=== PATIENT | female | born 1955 | race Caucasian/White ===

== ENCOUNTER 2018-01-08 18:45 | Emergency (ER) | payer BC, OTHER ==
[2018-01-08] MEDS: traMADol 50 MG TAB PO (20:13)
[2018-01-08 20:22] LABS: BASO % 0.2 % (0.0-1.0); EOS # 0.5 10^3/uL (0.0-0.50); EOS % 5.2 % (0.0-3.0); HEMATOCRIT 36.8 % (36.0-47.0); HEMOGLOBIN 12.2 g/dl (12.0-15.5); IMMATURE GRANULOCYTE % 0.4 % (0-3.0); LYMPH # 2.4 10^3/uL (1.5-4.5); LYMPH % 26.7 % (24.0-44.0); MEAN CORPUSCULAR HEMOGLOBIN 28.4 pg (27.0-33.0); MEAN CORPUSCULAR HGB CONC 33.2 g/dl (32.0-36.5); MEAN CORPUSCULAR VOLUME 85.8 fl (80.0-96.0); MONO # 0.6 10^3/uL (0.0-0.8); MONO % 6.5 % (0.0-5.0); NEUTROPHILS # 5.5 10^3/uL (1.8-7.7); PLATELET COUNT, AUTOMATED 204 10^3/uL (150-450); RED BLOOD COUNT 4.29 10^6/uL (4.00-5.40); RED CELL DISTRIBUTION WIDTH 12.9 % (11.5-14.5)
[2018-01-08 20:44] LABS: ESTIMATED AVERAGE GLUCOSE 349 MG/DL (60-110); HEMOGLOBIN A1c 13.8 %
[2018-01-08 20:48] LABS: ERYTHROCYTE SEDIMENTATION RATE 48 mm/hr (0-30)
[2018-01-08 20:50] LABS: KETONE, URINE AUTO RFX NEGATIVE (NEGATIVE); LEUKOCYTE ESTERASE UR AUTO RFX NEGATIVE (NEGATIVE); NITRITE, URINE AUTO RFX NEGATIVE (NEGATIVE); RBC, URINE AUTO RFX 2 /HPF (0-3); SPECIFIC GRAVITY UR AUTO RFX 1.023 (1.002-1.035); SQUAM EPITHELIAL CELL UR AURFX 0 /HPF (0-6); WBC, URINE AUTO RFX 5 /HPF (0-3)
[2018-01-08 21:00] LABS: ALBUMIN 3.5 GM/DL (3.2-5.2); ALKALINE PHOSPHATASE 77 U/L (45-117); ALT/SGPT 20 U/L (12-78); ANION GAP 5 MEQ/L (8-16); AST/SGOT 12 U/L (7-37); BILIRUBIN,DIRECT < 0.1 MG/DL (0.0-0.2); BILIRUBIN,TOTAL 0.4 MG/DL (0.2-1.0); BLOOD UREA NITROGEN 39 MG/DL (7-18); C REACTIVE PROTEIN QUANTITATIV 0.42 MG/DL (0.00-0.30); CARBON DIOXIDE LEVEL 31 MEQ/L (21-32); CHLORIDE LEVEL 101 MEQ/L (98-107); CREATININE FOR GFR 2.01 MG/DL (0.55-1.30); GLOMERULAR FILTRATION RATE 26.7 (>45); GLUCOSE, FASTING 388 MG/DL (70-100); LIPASE 347 U/L (73-393); MAGNESIUM LEVEL 2.3 MG/DL (1.8-2.4); SODIUM LEVEL 137 MEQ/L (136-145); TOTAL PROTEIN 6.2 GM/DL (6.4-8.2)
[2018-01-08] MEDS: LORazepam 1 MG TAB PO (21:10)
== END 2018-01-08 21:53 | disposition left against medical advice (07) ==
LOC: M ED 18:45
DX: M79.662 Pain in left lower leg (principal); E11.65 Type 2 diabetes mellitus with hyperglycemia; I10 Essential (primary) hypertension
CPT/HCPCS: 72148

== ENCOUNTER → 2018-08-06 | Outpatient (CLI) | payer OTHER ==
[~2018-08-06] MED LIST: ATENPOW PO; CIPR500T89 PO; CYMB1CAP PO; CYMB60CA3 PO; DEPA1TAB3 PO; DIAZ2TAB PO; FURO20TA2; GABA-845 PO; GLIM1TAB PO; HYDR-3910; LABE20TAB; METFORMIN PO; PRAV20TA2; SERT-138; TOUJ1.2I; TRAM50TA2 PO; TYLE325T5 PO; ZOLOFT PO
[2018-08-06 11:14] LABS: BASO % 0.3 % (0.0-1.0); EOS # 0.1 10^3/uL (0.0-0.50); EOS % 2.1 % (0.0-3.0); HEMATOCRIT 32.3 % (36.0-47.0); HEMOGLOBIN 10.6 g/dl (12.0-15.5); LYMPH # 2.1 10^3/uL (1.5-4.5); LYMPH % 31.7 % (24.0-44.0); MEAN CORPUSCULAR HEMOGLOBIN 30.7 pg (27.0-33.0); MEAN CORPUSCULAR HGB CONC 32.8 g/dl (32.0-36.5); MEAN CORPUSCULAR VOLUME 93.6 fl (80.0-96.0); MONO # 0.6 10^3/uL (0.0-0.8); MONO % 9.3 % (0.0-5.0); NEUTROPHILS # 3.7 10^3/uL (1.8-7.7); NEUTROPHILS % 56.3 % (36.0-66.0); PLATELET COUNT, AUTOMATED 223 10^3/uL (150-450); RED BLOOD COUNT 3.45 10^6/uL (4.00-5.40); WHITE BLOOD COUNT 6.5 10^3/uL (4.0-10.0)
[2018-08-06 11:47] LABS: HEMOGLOBIN A1c 7.3 %
[2018-08-06 11:51] LABS: ALBUMIN 3.6 GM/DL (3.2-5.2); BILIRUBIN,TOTAL 0.3 MG/DL (0.2-1.0); CALCIUM LEVEL 9.3 MG/DL (8.8-10.2); CREATININE FOR GFR 1.48 MG/DL (0.55-1.30); GLOMERULAR FILTRATION RATE 37.9 (>45); POTASSIUM SERUM 4.8 MEQ/L (3.5-5.1); THYROID STIMULATING HORMONE 1.67 uIU/ML (0.358-3.740); TOTAL PROTEIN 6.8 GM/DL (6.4-8.2)
[2018-08-06 11:52] LABS: PTH INTACT 51.5 PG/ML (18.5-88.0)
[2018-08-06 12:16] LABS: CREATININE, URINE 91.1 MG/DL
== END ==
LOC: M LAB 09:56
PROVIDERS: ATTEND Nurse Practitioner Adult Health
DX: E11.49 Type 2 diabetes mellitus with other diabetic neurological complication (principal); I48.91 Unspecified atrial fibrillation; I12.9 Hypertensive chronic kidney disease with stage 1 through stage 4 chronic kidney disease, or unspecified chronic kidney disease

== ENCOUNTER → 2018-09-28 | Outpatient (REF) | payer OTHER ==
[2018-09-28 13:33] LABS: ALBUMIN 3.4 GM/DL (3.2-5.2); BILIRUBIN,TOTAL 0.3 MG/DL (0.2-1.0); CALCIUM LEVEL 9.1 MG/DL (8.8-10.2); CREATININE FOR GFR 1.2 MG/DL (0.55-1.30); GLOMERULAR FILTRATION RATE 48.3 (>45); TOTAL PROTEIN 6.3 GM/DL (6.4-8.2)
[2018-09-28 13:38] LABS: CREATININE,RANDOM URINE 53.7 MG/DL; TOTAL PROTEIN,RANDOM URINE 82.7 MG/DL (0.0-12.0)
== END ==
LOC: M SFHCPLAZ 10:55
PROVIDERS: ATTEND Nurse Practitioner Adult Health
DX: E11.49 Type 2 diabetes mellitus with other diabetic neurological complication (principal)

== ENCOUNTER → 2018-10-22 | Outpatient (CLI) | payer OTHER ==
[~2018-10-22] MED LIST changes: +BASA100I; +DULO1CAP6; +GABA600T4; +TIZA4TAB4; +TORS20TA2
--- NOTE | 2018-10-22 10:44 | REP ---
Right lower extremity Duplex Doppler venous ultrasound: Real time compression and duplex Doppler interrogation of the right lower extremity deep venous system is performed. The right common femoral, superficial femoral and popliteal veins are fully compressible with transducer pressure and demonstrate normal spontaneous and phasic flow, without evidence of deep venous thrombosis. Impression: No evidence of deep venous thrombosis of the right lower extremity femoral popliteal venous system. Electronically Signed by Harry Woods MD 10/22/2018 10:35 A
== END ==
LOC: M RAD 09:09
PROVIDERS: ATTEND Nurse Practitioner Adult Health
DX: M79.89 Other specified soft tissue disorders (principal)

== ENCOUNTER 2018-10-31 10:00 | Emergency (ER) | payer OTHER ==
[~2018-10-31 10:00] MED LIST changes: -BASA100I; -DULO1CAP6; -GABA600T4; -TIZA4TAB4; -TORS20TA2
[2018-10-31] MEDS ORDERED: ACETAMINOPH W/CODEINE #3 TAB UD PO ONE (10:15)
[2018-10-31 10:26] VITALS: BP 186/86
[2018-10-31] MEDS ORDERED: DULO1CAP6 (10:36)
[2018-10-31] MEDS ORDERED: GABA600T4 (10:36)
[2018-10-31] MEDS ORDERED: TORS20TA2 (10:36)
[2018-10-31] MEDS ORDERED: BASA100I (10:36)
[2018-10-31] MEDS ORDERED: TIZA4TAB4 (10:36)
--- NOTE | 2018-10-31 11:42 | REP ---
CT BRAIN WITHOUT IV CONTRAST: CT brain performed without IV contrast. The ventricles are normal in size and position with no midline shift or mass effect. Encephalomalacia in the right occipital lobe is compatible with an old infarct. There are mild periventricular small vessel ischemic changes which are old. There is no acute intracranial hemorrhage or extra-axial fluid collection. No skull fracture is seen. There are vascular calcifications in the carotid siphons. IMPRESSION: No evidence of acute bleed or fracture. Old right occipital infarct. Electronically Signed by Harry Woods MD 10/31/2018 06:00 P
--- NOTE | 2018-10-31 11:45 | REP ---
CT CERVICAL SPINE: CT cervical spine performed in the axial plane. Sagittal and coronal reconstruction images are performed. There is no compression fracture or malalignment. There is no prevertebral soft tissue swelling. There is mild to moderate diffuse spurring of C3 through C7 with moderate disc space narrowing at C5-6 and C6-7. There is also posterior osteophytic ridging at C5 through C7. No abnormal density is seen in the spinal canal. There is narrowing and sclerosis at the interval between the dens and the anterior ring of C1. IMPRESSION: Degenerative changes, most significantly at C5-6 and C6-7. No acute fracture or dislocation. Electronically Signed by Harry Woods MD 10/31/2018 06:00 P
== END 2018-10-31 11:58 | disposition home or self-care (01) ==
LOC: M ED 10:00 → EDBD 10:00 → M ED 11:58
DX: S16.1XXA Strain of muscle, fascia and tendon at neck level, initial encounter (principal); V43.62XA Car passenger injured in collision with other type car in traffic accident, initial encounter; Y92.481 Parking lot as the place of occurrence of the external cause; Z86.73 Personal history of transient ischemic attack (TIA), and cerebral infarction without residual deficits; Z91.041 Radiographic dye allergy status; Z88.2 Allergy status to sulfonamides; Z88.8 Allergy status to other drugs, medicaments and biological substances; Z79.899 Other long term (current) drug therapy; Z79.4 Long term (current) use of insulin

== ENCOUNTER 2018-12-21 10:16 | Emergency (ER) | payer OTHER ==
[~2018-12-21] VITALS: Ht 147.3 cm; Wt 98.4 kg
[~2018-12-21 10:16] MED LIST changes: +BASA100I; +DULO1CAP6; +GABA600T4; +TIZA4TAB4; +TORS20TA2
[2018-12-21] MEDS ORDERED: ACET1TAB16 (10:30)
[2018-12-21] MEDS ORDERED: PRAV40TA2 (10:30)
--- NOTE | 2018-12-21 12:07 | REP ---
Four views ribs/thorax: 12/21/2018. Indication: Ribs/chest pain. Comparison: 08/05/2012. Findings: No rib fracture is detected. There is no evidence of lung contusion. There is no pleural effusion or pneumothorax. Elevation of the right hemidiaphragm is noted. There is no air space consolidation. Impression: No rib fracture detected. Clear lungs. Electronically Signed by Brendan Marcano DO 12/21/2018 11:58 A
[2018-12-21 12:40] VITALS: BP 187/84
--- NOTE | 2018-12-21 13:38 | REP ---
CT chest without contrast: History: Moderate pain over the left ribs. Comparison radiographs are from earlier this date. CT findings: There is no evidence of pneumothorax or hemothorax. There are bilateral basilar discoid atelectatic changes right lower lobe greater than left lower lobe and lingula. Mediastinum is not widened. No mediastinal hematoma is seen. Vascular calcification is noted. There is no visible rib fracture or bony destructive lesion. There are some mild degenerative changes in the thoracic spine. No sternal or manubrial fracture is seen. No vertebral, or clavicle or scapular fracture is seen. Costal cartilages are unremarkable. Sternum and manubrium are unremarkable. No extrathoracic mass or adenopathy is seen. Impression: Bibasilar plate-like atelectasis. Otherwise no acute disease. No rib fracture or bony destructive lesion seen. Electronically Signed by Rashad Hernandez MD 12/21/2018 05:53 P
== END 2018-12-21 13:52 | disposition home or self-care (01) ==
LOC: M ED 10:16
DX: J98.11 Atelectasis (principal); R07.81 Pleurodynia; I50.9 Heart failure, unspecified; E11.9 Type 2 diabetes mellitus without complications; I10 Essential (primary) hypertension; E78.5 Hyperlipidemia, unspecified; Z86.73 Personal history of transient ischemic attack (TIA), and cerebral infarction without residual deficits; K21.9 Gastro-esophageal reflux disease without esophagitis; F41.9 Anxiety disorder, unspecified; F32.9 Major depressive disorder, single episode, unspecified; Z87.59 Personal history of other complications of pregnancy, childbirth and the puerperium; Z79.4 Long term (current) use of insulin; Z79.899 Other long term (current) drug therapy; Z88.2 Allergy status to sulfonamides; Z88.8 Allergy status to other drugs, medicaments and biological substances; Z91.041 Radiographic dye allergy status

== ENCOUNTER → 2019-01-31 | Outpatient (REF) | payer OTHER ==
[~2019-01-31] MED LIST changes: +ACET1TAB16; +PRAV40TA2
[2019-01-31 18:14] LABS: ALBUMIN 3.6 GM/DL (3.2-5.2); BILIRUBIN,TOTAL 0.3 MG/DL (0.2-1.0); CREATININE FOR GFR 1.63 MG/DL (0.55-1.30); GLOMERULAR FILTRATION RATE 33.9 (>45); TOTAL PROTEIN 6.7 GM/DL (6.4-8.2)
[2019-01-31 18:35] LABS: HEMOGLOBIN A1c 8.9 %
== END ==
LOC: M SFHCPLAZ 15:29
PROVIDERS: ATTEND Nurse Practitioner Adult Health
DX: E11.49 Type 2 diabetes mellitus with other diabetic neurological complication (principal)

== ENCOUNTER → 2019-08-31 | Outpatient (REF) | payer OTHER, SELFPAY ==
[2019-08-31 15:27] LABS: HEMOGLOBIN A1c 8.1 %
[2019-08-31 15:41] LABS: ALBUMIN 3.4 GM/DL (3.2-5.2); BILIRUBIN,TOTAL 0.3 MG/DL (0.2-1.0); CALCIUM LEVEL 9.2 MG/DL (8.8-10.2); CREATININE FOR GFR 1.69 MG/DL (0.55-1.30); GLOMERULAR FILTRATION RATE 32.4 (>45); THYROID STIMULATING HORMONE 0.891 uIU/ML (0.358-3.740); TOTAL PROTEIN 6.6 GM/DL (6.4-8.2)
[2019-08-31 15:42] LABS: TOTAL 25(OH) VITAMIN D 11.9 NG/ML (30.0-100.0)
== END ==
LOC: M SFHCPLAZ 12:35
PROVIDERS: ATTEND Nurse Practitioner Adult Health
DX: E11.49 Type 2 diabetes mellitus with other diabetic neurological complication (principal); I48.91 Unspecified atrial fibrillation; N18.4 Chronic kidney disease, stage 4 (severe)

== ENCOUNTER → 2019-10-11 | Outpatient (CLI) | payer OTHER, SELFPAY ==
[2019-10-11 18:17] LABS: BILIRUBIN,TOTAL 0.4 MG/DL (0.2-1.0); CALCIUM LEVEL 8.9 MG/DL (8.8-10.2); CREATININE FOR GFR 2.1 MG/DL (0.55-1.30); GLOMERULAR FILTRATION RATE 25.2 (>45); POTASSIUM SERUM 4.4 MEQ/L (3.5-5.1)
[2019-10-11 18:25] LABS: HEMATOCRIT 27.3 % (36.0-47.0); HEMOGLOBIN 8.7 g/dl (12.0-15.5); MEAN CORPUSCULAR HEMOGLOBIN 29.3 pg (27.0-33.0); MEAN CORPUSCULAR HGB CONC 31.9 g/dl (32.0-36.5); MEAN CORPUSCULAR VOLUME 91.9 fl (80.0-96.0); PLATELET COUNT, AUTOMATED 216 10^3/uL (150-450); RED BLOOD COUNT 2.97 10^6/uL (4.00-5.40)
[2019-10-11 18:30] LABS: HEMOGLOBIN A1c 9.4 %
--- NOTE | 2019-11-09 10:14 | REPPI ---
CHEST X-RAY: CLINICAL: Shortness of breath. TECHNIQUE: PA and lateral FINDINGS: Cardiomegaly is appreciated. Diffuse increased interstitial markings are noted. The lateral view suggests basilar atelectasis and small pleural effusion. No pneumothorax. Skeletal structures are intact. IMPRESSION: Diffusely increased interstitial markings with basilar atelectasis and small pleural effusion. Differential diagnosis includes bronchiolitis/pneumonia as well as early CHF. MTDD
== END ==
LOC: M PLAIMG 15:07
PROVIDERS: ATTEND Nurse Practitioner Adult Health
DX: R63.5 Abnormal weight gain (principal); I10 Essential (primary) hypertension; I48.91 Unspecified atrial fibrillation; R06.02 Shortness of breath

== ENCOUNTER → 2019-10-14 | Outpatient (REF) | payer OTHER ==
[2019-10-14 15:41] LABS: TOTAL PROTEIN,RANDOM URINE 225.3 MG/DL (0.0-12.0)
== END ==
LOC: M SFHCPLAZ 13:32
PROVIDERS: ATTEND Nurse Practitioner Adult Health
DX: E11.49 Type 2 diabetes mellitus with other diabetic neurological complication (principal)

== ENCOUNTER → 2019-10-20 | Outpatient (CLI) | payer OTHER ==
--- NOTE | 2019-10-22 20:57 | ECHO ---
DATE OF PROCEDURE: 10/20/2019 Age: Gender: Female Height: 150 cm Weight: 102 kg REFERRING PHYSICIAN: Demetria Cat NP INDICATION: Dyspnea, shortness of breath. MEASUREMENTS: Dimensions: RV 1.4. LV 4.2 LVPW 1.4 LA 4.7 Aorta 2.9 IV 2.0 FINDINGS: The study is of acceptable technical quality with somewhat limited views corresponding to the patient's body habitus. The patient is in sinus rhythm. Left ventricle is normal size and has normal systolic function, estimated left ventricular ejection fraction (LVEF) approximately 65 to 70%. Mild to moderate left ventricular hypertrophy is noted. Right ventricle is normal size and probably has normal systolic function based on limited views. Left atrium is approximately moderately enlarged. Right atrium appears grossly normal. Aortic valve is mildly sclerotic, but has normal mobility. Mitral and tricuspid valves appear normal. Pulmonic valve was not well seen. No pericardial effusion is noted. Inferior vena cava is in the upper limit of normal size and only partial collapses in inspirations indicative of at least mildly elevated central venous pressure. Aortic root, aortic arch and abdominal aorta were all relatively poorly visualized. Doppler interrogation reveals no significant aortic valvular disease. There is approximately mild to moderate mitral insufficiency. Tricuspid valve is functionally competent. Evaluation of diastolic function was not completed. There were no tissue velocities of mitral annulus recorded; but based on mitral inflow pattern, the patient most likely has grade 2 diastolic dysfunction. CONCLUSIONS: 1. Study is of acceptable technical quality, underlying sinus rhythm. 2. Normal LV size with mild to moderate left ventricular hypertrophy (LVH) and overall preserved LV systolic function. 3. Aortic sclerosis, but no stenosis. 4. Mild to moderate mitral insufficiency. 5. At least mildly elevated central venous pressure. 6. Unable to estimate pulmonary artery pressure. COMMENTS: SBE prophylaxis not recommended. Study is most consistent with hypertensive heart disease. MTDD
== END ==
LOC: M CARPUL 09:45
PROVIDERS: ATTEND Nurse Practitioner Adult Health
DX: R63.5 Abnormal weight gain (principal); R06.02 Shortness of breath; I34.0 Nonrheumatic mitral (valve) insufficiency; I35.8 Other nonrheumatic aortic valve disorders

== ENCOUNTER → 2019-12-22 | Outpatient (REF) | payer OTHER ==
[2019-12-22 17:39] LABS: HEMOGLOBIN 10.7 g/dl (12.0-15.5); MEAN CORPUSCULAR HEMOGLOBIN 28.4 pg (27.0-33.0); MEAN CORPUSCULAR HGB CONC 31.5 g/dl (32.0-36.5); MEAN CORPUSCULAR VOLUME 90.2 fl (80.0-96.0); PLATELET COUNT, AUTOMATED 230 10^3/uL (150-450); RED BLOOD COUNT 3.77 10^6/uL (4.00-5.40); WHITE BLOOD COUNT 8.9 10^3/uL (4.0-10.0)
[2019-12-22 18:00] LABS: HEMOGLOBIN A1c 9.6 %
[2019-12-22 18:13] LABS: ALBUMIN 3.3 GM/DL (3.2-5.2); ALT/SGPT 19 U/L (12-78); BILIRUBIN,TOTAL 0.3 MG/DL (0.2-1.0); BLOOD UREA NITROGEN 28 MG/DL (7-18); CALCIUM LEVEL 9.5 MG/DL (8.8-10.2); CARBON DIOXIDE LEVEL 28 MEQ/L (21-32); CHLORIDE LEVEL 105 MEQ/L (98-107); CHOLESTEROL LEVEL 293 MG/DL (<200); CHOLESTEROL RISK RATIO 7.918 (<5); CREATININE FOR GFR 1.72 MG/DL (0.55-1.30); GLOMERULAR FILTRATION RATE 31.8 (>45); GLUCOSE, FASTING 144 MG/DL (70-100); HDL CHOLESTEROL 37 MG/DL (>40); NON-HDL-C 256 MG/DL; POTASSIUM SERUM 4.8 MEQ/L (3.5-5.1); SODIUM LEVEL 140 MEQ/L (136-145); TOTAL PROTEIN 6.2 GM/DL (6.4-8.2); TRIGLYCERIDES LEVEL 405 MG/DL (<150)
[2019-12-22 18:18] LABS: TOTAL 25(OH) VITAMIN D 12.8 NG/ML (30.0-100.0)
[2019-12-22 18:43] LABS: MAU/CREAT RATIO 1942.8 MCG/MG (0.0-30.0); TOTAL PROTEIN,RANDOM URINE 433.7 MG/DL (0.0-12.0)
== END ==
LOC: M SFHCPLAZ 14:24
PROVIDERS: ATTEND Nurse Practitioner Adult Health
DX: E11.49 Type 2 diabetes mellitus with other diabetic neurological complication (principal); I48.91 Unspecified atrial fibrillation; N18.4 Chronic kidney disease, stage 4 (severe); E55.9 Vitamin D deficiency, unspecified; I63.9 Cerebral infarction, unspecified

== ENCOUNTER → 2020-03-12 | Outpatient (REF) | payer OTHER ==
[2020-03-12 16:46] LABS: HEMATOCRIT 34.8 % (36.0-47.0); HEMOGLOBIN 10.8 g/dl (12.0-15.5); MEAN CORPUSCULAR HEMOGLOBIN 27.3 pg (27.0-33.0); MEAN CORPUSCULAR VOLUME 88.1 fl (80.0-96.0); PLATELET COUNT, AUTOMATED 227 10^3/uL (150-450); RED BLOOD COUNT 3.95 10^6/uL (4.00-5.40); WHITE BLOOD COUNT 7.9 10^3/uL (4.0-10.0)
[2020-03-12 16:57] LABS: ALBUMIN 3.3 GM/DL (3.2-5.2); BILIRUBIN,TOTAL 0.3 MG/DL (0.2-1.0); CALCIUM LEVEL 9.1 MG/DL (8.8-10.2); CREATININE FOR GFR 1.61 MG/DL (0.55-1.30); GLOMERULAR FILTRATION RATE 34.3 (>45); POTASSIUM SERUM 3.8 MEQ/L (3.5-5.1); TOTAL PROTEIN 6.6 GM/DL (6.4-8.2)
[2020-03-12 17:02] LABS: PTH INTACT 114.1 PG/ML (18.5-88.0)
[2020-03-12 17:27] LABS: HEMOGLOBIN A1c 8.6 %
== END ==
LOC: M SFHCPLAZ 14:03
PROVIDERS: ATTEND Nurse Practitioner Adult Health
DX: E11.49 Type 2 diabetes mellitus with other diabetic neurological complication (principal); N18.4 Chronic kidney disease, stage 4 (severe)

== ENCOUNTER → 2020-07-04 | Outpatient (REF) | payer MEDICARE ==
[~2020-07-04] MED LIST changes: +GABA-283 PO; -GABA-845 PO
[2020-07-04 17:14] LABS: ALBUMIN 3.1 GM/DL (3.2-5.2); BILIRUBIN,TOTAL 0.4 MG/DL (0.2-1.0); CREATININE FOR GFR 2.07 MG/DL (0.55-1.30); GLOMERULAR FILTRATION RATE 25.6 (>45); POTASSIUM SERUM 3.5 MEQ/L (3.5-5.1); TOTAL PROTEIN 6.3 GM/DL (6.4-8.2)
[2020-07-04 18:48] LABS: HEMOGLOBIN A1c 9.1 %
== END ==
LOC: M SFHCPLAZ 14:15
PROVIDERS: ATTEND Nurse Practitioner Adult Health
DX: E11.49 Type 2 diabetes mellitus with other diabetic neurological complication (principal); J02.9 Acute pharyngitis, unspecified

== ENCOUNTER → 2020-07-12 | Outpatient (CLI) | payer MEDICARE, OTHER, SELFPAY ==
--- NOTE | 2020-07-13 09:11 | ECHO ---
ECHOCARDIOGRAM DATE OF PROCEDURE: 07/12/2020 Age: 65 Gender: Female Height: 58 inches Weight: 238 pounds Body surface area: 1.96 m2 PATIENT LOCATION: Outpatient. REFERRING PHYSICIAN: BARBARA Dior. INDICATION: Hypertension. MEASUREMENTS: 2D Measurements: RV 2.7 cm LV 5.2 cm Septum 1.2 cm Posterior wall 1.2 cm Aortic Root 3.1 cm LA 4.6 cm LVEF 65% Doppler Measurements: AV 1.43 m/s LVOT 0.93 m/s LVOT diameter 1.8 cm MV-E 95, A 116, E/A ratio 0.8 Early mitral deceleration time 151 msec E prime medial 6.7, A prime medial 8, E prime lateral 8.6 Average E/E prime ratio 12.4/PCWP 17.3 mmHg PV 0.75 m/s Pulmonary artery acceleration time 130 msec PASP 24 mmHg IVC 2.0 cm COMMENTS: Normal sinus rhythm without intraventricular conduction disturbance. Technically challenging study in light of the patient's body habitus, but diagnostically useful information was still obtained. Borderline symmetrical left ventricular hypertrophy with normal wall motion. [id number] dilated left atrium with grade 1 LV diastolic dysfunction and current estimated mean left atrial pressure upper limits of normal. Normal right heart chamber sizes and motion and estimated pulmonary arterial pressure. Normal IVC size and collapse against an elevated central venous pressure. Normal aortic dimensions. Three equal size aortic cusps with marginally thickened cusp edges, but adequate cusp separation. No functional valvular abnormality. Normal appearing mitral valve apparatus and leaflet excursion with no posterior systolic buckling. No functional valvular abnormality. Normal appearing tricuspid valve with trace insufficiency (physiologic). No apparent intracardiac mass or pericardial effusion.
== END ==
LOC: M CARPUL 14:08
PROVIDERS: ATTEND Nurse Practitioner Adult Health
DX: I10 Essential (primary) hypertension (principal)

== ENCOUNTER 2020-07-14 08:46 | Inpatient (IN) | payer MEDICARE ==
[~2020-07-14] VITALS: Ht 149.9 cm; Wt 106.0 kg
[~2020-07-14 08:46] MED LIST changes: -ACET1TAB16; +ACET1TAB16 PO; -BASA100I; +BASA100I SC; -DULO1CAP6; +DULO1CAP6 PO; -GABA600T4; +GABA600T4 PO; -HYDR-3910; +HYDR-3910 PO; -PRAV40TA2; +PRAV40TA2 PO; -TORS20TA2; +TORS20TA2 PO
[2020-07-14] MEDS ORDERED: ACETAMINOPHEN TAB 650MG DOSE (2X325MG) PO PRN (09:15)
[2020-07-14] MEDS ORDERED: methylPREDNISolone 125MG 2ML VIAL IV ONE (09:15)
[2020-07-14] MEDS: ALBUTEROL 90 MCG/ACT 8GM HFA INHALER INH SCH ×3 (09:27→10:16)
[2020-07-14 09:39] LABS: BASO # 0.1 10^3/uL (0.0-0.2); BASO % 0.5 % (0.0-1.0); EOS # 0.2 10^3/uL (0.0-0.5); EOS % 2.2 % (0.0-3.0); HEMATOCRIT 33.5 % (36.0-47.0); HEMOGLOBIN 10.3 g/dl (12.0-15.5); LYMPH # 1.7 10^3/uL (1.5-5.0); LYMPH % 18.1 % (24.0-44.0); MEAN CORPUSCULAR HEMOGLOBIN 27.5 pg (27.0-33.0); MEAN CORPUSCULAR HGB CONC 30.7 g/dl (32.0-36.5); MEAN CORPUSCULAR VOLUME 89.3 fl (80.0-96.0); MONO # 0.8 10^3/uL (0.0-0.8); MONO % 8.3 % (2.0-8.0); NEUTROPHILS # 6.6 10^3/uL (1.5-8.5); NEUTROPHILS % 68.6 % (36.0-66.0); PLATELET COUNT, AUTOMATED 245 10^3/uL (150-450); RED BLOOD COUNT 3.75 10^6/uL (4.00-5.40); WHITE BLOOD COUNT 9.6 10^3/uL (4.0-10.0)
--- NOTE | 2020-07-14 09:39 | REP ---
INDICATION: DYSPNEA/COUGH COMPARISON: 10/11/2019 TECHNIQUE: Portable AP view of the chest FINDINGS: The mediastinum and cardiac silhouette are stable and within normal limits for portable technique. The lung arrieta demonstrate indistinct central pulmonary vasculature, suspected cephalization and increased interstitial markings suggesting pulmonary interstitial edema. Bibasilar atelectasis cannot be excluded. No definite effusion. No pneumothorax.. IMPRESSION: Limited by portable technique and poor inspiratory effort. Pulmonary vascular congestion and interstitial edema along with atelectasis cannot be excluded. <Electronically signed by Lencho Pena > 07/14/20 0935
[2020-07-14] MEDS ORDERED: CARV12.5 PO (09:44)
[2020-07-14] MEDS ORDERED: TORS20TA2 PO (09:44)
[2020-07-14] MEDS ORDERED: CLON-412 PO (09:44)
[2020-07-14] MEDS ORDERED: AMLO1TAB24 PO (09:44)
[2020-07-14] MEDS ORDERED: BASA100I SC (10:03)
[2020-07-14] MEDS ORDERED: DOXY-346 PO (10:03)
[2020-07-14 10:13] LABS: ALBUMIN 3.2 GM/DL (3.2-5.2); BILIRUBIN,DIRECT 0.1 MG/DL (0.0-0.2); BILIRUBIN,TOTAL 0.5 MG/DL (0.2-1.0); THYROID STIMULATING HORMONE 2.4 uIU/ML (0.358-3.740); THYROXINE (T4) 9.4 UG/DL (4.5-12.0); TOTAL PROTEIN 6.7 GM/DL (6.4-8.2)
[2020-07-14] MEDS ORDERED: FUROSEMIDE 100MG/10ML VIAL (J1940) IV ONE (10:30)
[2020-07-14] MEDS ORDERED: cloNIDine 0.1MG TABLET PO ONE (11:10)
[2020-07-14] MEDS ORDERED: GLUCOSE 4GM CHEW TABLET PO PRN (12:20)
[2020-07-14] MEDS ORDERED: GLUCAGON INJ 1MG VIAL SC PRN (12:20)
[2020-07-14] MEDS ORDERED: amLODIPine 5 MG TAB PO ONE (12:20)
[2020-07-14] MEDS ORDERED: DEXTROSE 50% 50 ML SYRINGE IV PRN (12:20)
[2020-07-14 13:00] VITALS: BP 168/77
[2020-07-14] MEDS: LEVEMIR (INSULIN DETEMIR) 1 UNITS/0.01ML SC SCH ×2 (13:32→20:25)
[2020-07-14] MEDS: CARVedilol 12.5 MG TAB PO SCH ×2 (13:33→20:25)
[2020-07-14] MEDS: DULoxetine 30 MG CAP (CYMBALTA) PO SCH ×2 (13:33→20:24)
[2020-07-14] MEDS: GABAPENTIN 300 MG CAP PO SCH ×3 (13:33→20:24)
[2020-07-14] MEDS: HumaLOG INSULIN (NovoLOG) PER UNIT SC SCH ×2 (17:53→20:26)
[2020-07-14] MEDS: FUROSEMIDE 100MG/10ML VIAL (J1940) IV SCH ×2 (17:53→22:43)
--- NOTE | 2020-07-14 19:47 | ECGEPIP ---
[facility] - ED Test Date: 2020-07-14 Pat Name: FER AMBROCIO Department: Room: [place] [address] Gender: Female Onion Tier: HC : 1955 Requested By: Ezequiel Mendoza Order Number: [id number] Reading MD: Ezequiel Mendoza Measurements Intervals [place] Rate: 104 P: 45 VT: 152 QRS: 35 QRSD: 82 T: 17 QT: 340 QTc: 447 Interpretive Statements Sinus tachycardia Nonspecific ST T wave changes Delayed R wave progression No prior ECG for comparison Electronically Signed on 07-14-2020 19:47:49 EDT by Ezequiel Mendoza
[2020-07-14] MEDS: PRAVASTATIN 20 MG TAB PO SCH (20:24)
[2020-07-14 22:00] VITALS: BP 161/74
[2020-07-15] MEDS ORDERED: SUMAtriptan SUCCINATE 25 MG TAB PO ONE
[2020-07-15] MEDS: FUROSEMIDE 100MG/10ML VIAL (J1940) IV SCH ×4 (05:25→22:51)
[2020-07-15 06:00] VITALS: BP 148/88
[2020-07-15 07:04] LABS: BASO % 0.3 % (0.0-1.0); HEMATOCRIT 35.1 % (36.0-47.0); HEMOGLOBIN 10.9 g/dl (12.0-15.5); LYMPH # 1.4 10^3/uL (1.5-5.0); LYMPH % 11.5 % (24.0-44.0); MEAN CORPUSCULAR HEMOGLOBIN 27.3 pg (27.0-33.0); MEAN CORPUSCULAR HGB CONC 31.1 g/dl (32.0-36.5); MONO # 0.9 10^3/uL (0.0-0.8); MONO % 7.3 % (2.0-8.0); NEUTROPHILS # 9.2 10^3/uL (1.5-8.5); NEUTROPHILS % 77.6 % (36.0-66.0); PLATELET COUNT, AUTOMATED 243 10^3/uL (150-450); RED BLOOD COUNT 3.99 10^6/uL (4.00-5.40); WHITE BLOOD COUNT 11.8 10^3/uL (4.0-10.0)
[2020-07-15 07:24] LABS: CREATININE FOR GFR 2.36 MG/DL (0.55-1.30); POTASSIUM SERUM 4.1 MEQ/L (3.5-5.1)
--- NOTE | 2020-07-15 07:44 | HPEPDOC ---
General Date of Admission Jul 14, 2020 at 11:11 Date of Service: Jul 14, 2020 Chief Complaint The patient is a 65-year-old female admitted with a reason for visit of Chf Exacerbation. Source: Patient, RN/MD History of Present Illness 65-year-old female with past medical history of morbid obesity, hypertension, hyperlipidemia, diabetes with neuropathy. 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 She couldn't walk to the bathroom. For the past week, she had noticed increased cough and has been having trouble laying down in bed. She had also had increased phlegm production and some of it was green. Chest x-ray in the ED shows pulmonary vascular congestion and interstitial edema Patient's blood pressure was high and she was hypoxic to 75% in room air in the ED. Patient was diagnosed with CHF exacerbation given IV Lasix, started on oxygen and also given albuterol and steroid Home Medications Scheduled Amlodipine Besylate (Amlodipine Besylate) 5 Mg Tablet, 5 MG PO DAILY, (Reported) Carvedilol (Carvedilol) 12.5 Mg Tablet, 12.5 MG PO BID, (Reported) Clonidine HCl (Clonidine HCl) 0.1 Mg Tablet, 0.1 MG PO BID, (Reported) Doxycycline Monohydrate (Doxycycline Monohydrate) 100 Mg Tablet, 100 MG PO DAILY, (Reported) Duloxetine Hcl (Duloxetine HCl) 60 Mg Capsule.dr, 60 MG PO BID, (Reported) Gabapentin (Gabapentin) 600 Mg Tablet, 600 MG PO QID, (Reported) Hydralazine HCl (Hydralazine HCl) 25 Mg Tab, 25 MG PO BID, (Reported) Insulin Glargine,Hum.rec.anlog (Basaglar Kwikpen U-100) 100 Unit/1 Ml Insuln.pen, 40 UNITS SC DAILY, (Reported) Insulin Glargine,Hum.rec.anlog (Basaglar Kwikpen U-100) 100 Unit/1 Ml Insuln.pen , 60 UNIT SC QHS, (Reported) Pravastatin Sodium (Pravastatin Sodium) 40 Mg Tablet, 40 MG PO QHS, (Reported) Torsemide (Torsemide) 20 Mg Tablet, 40 MG PO DAILY, (Reported) Torsemide (Torsemide) 20 Mg Tablet, 20 MG PO DAILY, (Reported) IN AFTERNOON Scheduled PRN Acetaminophen with Codeine (Acetaminophen-Cod #3 Tablet) 1 Each Tablet, 1 TAB PO QID PRN for PAIN, (Reported) Allergies Coded Allergies: Contrast Media (Verified Allergy, Unknown, 02/20/05) Sulfa (Sulfonamide Antibiotics) (Verified Allergy, Unknown, 10/31/18) atropine (Verified Allergy, Unknown, 10/31/18) Past Medical History Medical History Morbid obesity, being worked up for gastric bypass surgery, possibly to be scheduled in September Diabetes mellitus with neuropathy Hypertension CKD stage III Paroxysmal atrial fibrillation Anxiety Major depressive disorder CVA RIGHT SIDED WEAKNESS Right foot drop uses a brace to ambulate ECHO-10/20/19 LVEF 65-70% Urinary incontinence Surgical History BILATERAL BREAST REDUCTION- 10/31/98 LESION REMOVED RIGHT LOWER LEG-DERMAL MElanoCYSTIC NEVUS 09/09/2001 TUBAL LIGATION TUBAL REVERSAL/ 2 TUBAL PREGNANCIES Family History FATHER: 78 YRS, AAA PASSED FROM THIS HE WAS A SMOKER MOTHER: 92 YRS, HYPOTHYRODISM, METASTATIC CANCER 2 CHILDREN- [facility] Social History * Smoker: non-smoker Alcohol: rarely Drugs: denies A-FIB/CHADSVASC A-FIB History Current/History of A-Fib/PAF?: Yes Review of Systems Constitutional: Reports: Weakness, Fatigue; Denies: Chills, Fever, Night Sweats Eyes: Denies: Pain, Vision change ENT: Denies: Head Aches, Ear Pain, Dysphagia Skin: Denies: Rash, Lesions, Breakdown Pulmonary: Reports: Dyspnea, Cough Cardiovascular: Reports: Orthopnea, Edema; Denies: Chest Pain, Palpitations, Paroxysmal Noc. Dyspnea, Lt Headedness Gastrointestinal: Reports: Abdominal Pain; Denies: Nausea, Vomiting, Diarrhea Genitourinary: Denies: Dysuria, Frequency, Incontinence, Retention Hematologic: Denies: Bruising, Bleeding Excessively Physical Examination General Exam: Positive: Alert, Cooperative, No Acute Distress Eye Exam: Positive: PERRLA, Conjunctiva & lids normal, EOMI; Negative: Sclera icteric ENT Exam: Positive: Atraumatic, Mucous membr. moist/pink, Pharynx Normal Neck Exam: Positive: Supple, Other (short, thick neck JVD could not be appreciated); Negative: thyromegaly Chest Exam: Positive: Diminished, Other (. Bilateral fine crackles); Negative: Rhonchi, Wheezing Heart Exam: Positive: Rate Normal, Regular Rhythm, Normal S1, Normal S2; Negative: Murmurs, Rubs Abdomen Exam: Positive: Normal bowel sounds, Soft, Tenderness (, tenderness in the epigastrium), Other (. Abdomen obese) Extremity Exam: Positive: Edema (bipedal pitting edema, right greater than left); Negative: Clubbing, Cyanosis Vital Signs Vital Signs Date Time Temp Pulse Resp B/P (MAP) Pulse Ox O2 Delivery O2 Flow Rate FiO2 07/14/20 11:15 20 07/14/20 11:01 112 146/102 (117) 95 Nasal Cannula 3.0 07/14/20 08:46 99.5 Laboratory Data Labs 24H Laboratory Tests 2 07/14/20 09:25: Immature Granulocyte % (Auto) 2.3, Neutrophils (%) (Auto) 68.6H, Lymphocytes (%) (Auto) 18.1L, Monocytes (%) (Auto) 8.3H, Eosinophils (%) (Auto) 2.2, Basophils (%) (Auto) 0.5, Neutrophils # (Auto) 6.6, Lymphocytes # (Auto) 1.7, Monocytes # (Auto) 0.8, Eosinophils # (Auto) 0.2, Basophils # (Auto) 0.1, Nucleated Red Blood Cells % (auto) 0.3H, Lactic Acid Level 1.1, Total Bilirubin 0.5, Direct Bilirubin 0.1, Aspartate Amino Transf (AST/SGOT) 14, Alanine Aminotransferase (ALT/SGPT) 20, Alkaline Phosphatase 68, HQ-Icr-K-Type Natriuretic Peptide 1457H, Total Protein 6.7, Albumin 3.2, Albumin/Globulin Ratio 0.9L, Thyroid Stimulating Hormone (TSH) 2.400, Thyroxine (T4) 9.4 07/14/20 09:39: POC Glucose (Misc Panel) 159H, POC Sodium (Misc Panel) 137, POC Potassium (Misc Panel) 4.1, POC Chloride (Misc Panel) 101, POC Total CO2 (Misc Panel) 29.0H, POC Blood Urea Nitrogen (Misc Panel 33H, POC Ionized Calcium (Misc Panel) 5.0, POC Creatinine (Misc Panel) 2.2H, POC Hematocrit (Misc Panel) 34.0L 07/14/20 09:40: POC Troponin I (Misc) 0.02 CBC/BMP Laboratory Tests 07/14/20 09:25 Microbiology Microbiology 07/14/20 Respiratory Virus Panel (PCR) ([facility]) - Final, Complete 07/14/20 Blood Culture, Received Pending 07/14/20 Blood Culture, Received Pending Assessment/Plan 65-year-old female with past medical history of morbid obesity, hypertension, hyperlipidemia, diabetes with neuropathy. 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 She couldn't walk to the bathroom. For the past week, she had noticed increased cough and has been having trouble laying down in bed. She had also had increased phlegm production and some of it was green. Chest x-ray in the ED shows pulmonary vascular congestion and interstitial edema Patient's blood pressure was high and she was hypoxic to 75% in room air in the ED. she was admitted for CHF exacerbation Diastolic CHF exacerbation Had a recent echo on 07/12/2020 with diastolic dysfunction and normal EF of 65% Continue with IV Lasix every 6 hours Monitor intake and output and daily weights Hypertension with hypertensive urgency Likely due to CHF exacerbation Will continue with them. Home meds Diabetes with neuropathy Fingerstick before meals and at bedtime Levemir and lispro, gabapentin CKD stage III Creatinine close to baseline. We will continue to monitor Anxiety and depression. Will continue home meds Morbid obesity getting preoperative work up for bariatric surgery. H/O CVA with right foot drop Needs a brace to walk. Plan / VTE VTE Prophylaxis Ordered?: Yes ALMA ALEXIS MD Jul 14, 2020 12:09
[2020-07-15] MEDS: HumaLOG INSULIN (NovoLOG) PER UNIT SC SCH ×4 (08:38→20:51)
[2020-07-15] MEDS: LEVEMIR (INSULIN DETEMIR) 1 UNITS/0.01ML SC SCH ×2 (08:38→22:50)
[2020-07-15] MEDS: DULoxetine 30 MG CAP (CYMBALTA) PO SCH ×2 (08:39→21:01)
[2020-07-15] MEDS: GABAPENTIN 300 MG CAP PO SCH ×4 (08:39→21:01)
[2020-07-15] MEDS: amLODIPine 5 MG TAB PO SCH (08:39)
[2020-07-15] MEDS: CARVedilol 12.5 MG TAB PO SCH ×2 (08:40→21:02)
--- NOTE | 2020-07-15 11:49 | IPNPDOC ---
Subjective Date Seen The patient was seen on 07/15/20. Subjective Chief Complaint/HPI SOB is better but still needing 3 liters of oxygen. Will try to wean oxygen. Good negative balance of 1350 till midnight as documented. Patient may have underlying sleep apnea with her obesity and body habitus so we my see oxygen desaturations during sleep. Objective Physical Examination General Exam: Positive: Alert, Cooperative, No Acute Distress Eye Exam: Positive: PERRLA, Conjunctiva & lids normal, EOMI; Negative: Sclera icteric ENT Exam: Positive: Atraumatic, Mucous membr. moist/pink, Pharynx Normal Neck Exam: Positive: Supple, Other (short, thick neck JVD could not be appreciated); Negative: thyromegaly Chest Exam: Positive: Diminished, Other (. Bilateral fine crackles); Negative: Rhonchi, Wheezing Heart Exam: Positive: Rate Normal, Regular Rhythm, Normal S1, Normal S2; Negative: Murmurs, Rubs Abdomen Exam: Positive: Normal bowel sounds, Soft, Tenderness (, tenderness in the epigastrium), Other (. Abdomen obese) Extremity Exam: Positive: Edema (bipedal pitting edema, right greater than left); Negative: Clubbing, Cyanosis Assessment /Plan Assessment 65-year-old female with past medical history of morbid obesity, hypertension, hyperlipidemia, diabetes with neuropathy. 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 She couldn't walk to the bathroom. For the past week, she had noticed increased cough and has been having trouble laying down in bed. She had also had increased phlegm production and some of it was green. Chest x-ray in the ED shows pulmonary vascular congestion and interstitial edema Patient's blood pressure was high and she was hypoxic to 75% in room air in the ED. she was admitted for CHF exacerbation Diastolic CHF exacerbation Had a recent echo on 07/12/2020 with diastolic dysfunction and normal EF of 65% Continue with IV Lasix Monitor intake and output and daily weights Hypertension with hypertensive urgency Likely due to CHF exacerbation Will continue home meds except clonidine continue coreg, amlodipine Diabetes with neuropathy Fingerstick before meals and at bedtime Levemir and lispro, gabapentin CKD stage III Baseline creatinine about 2.0 Creatinine close to baseline. We will continue to monitor with ongoing aggressive diuresis. Anxiety and depression. Will continue home meds Morbid obesity getting preoperative work up for bariatric surgery. H/O CVA with right foot drop Needs a brace to walk. Plan/VTE VTE Prophylaxis Ordered?: Yes VS, I&O, 24H, Fishbone Vital Signs/I&O Vital Signs Date Time Temp Pulse Resp B/P (MAP) Pulse Ox O2 Delivery O2 Flow Rate FiO2 07/15/20 06:00 97.6 98 18 148/88 (108) 95 Nasal Cannula 3.0 I&O- Last 24 Hours up to 6 AM 07/15/20 06:00 Intake Total 695 ml Output Total 2300 ml Balance -1605 ml Laboratory Data 24H LABS Laboratory Tests 2 07/14/20 09:25: Immature Granulocyte % (Auto) 2.3, Neutrophils (%) (Auto) 68.6H, Lymphocytes (%) (Auto) 18.1L, Monocytes (%) (Auto) 8.3H, Eosinophils (%) (Auto) 2.2, Basophils (%) (Auto) 0.5, Neutrophils # (Auto) 6.6, Lymphocytes # (Auto) 1.7, Monocytes # (Auto) 0.8, Eosinophils # (Auto) 0.2, Basophils # (Auto) 0.1, Nucleated Red Blood Cells % (auto) 0.3H, Lactic Acid Level 1.1, Total Bilirubin 0.5, Direct Bilirubin 0.1, Aspartate Amino Transf (AST/SGOT) 14, Alanine Aminotransferase (ALT/SGPT) 20, Alkaline Phosphatase 68, RK-Gxi-C-Type Natriuretic Peptide 1457H, Total Protein 6.7, Albumin 3.2, Albumin/Globulin Ratio 0.9L, Thyroid Stimulating Hormone (TSH) 2.400, Thyroxine (T4) 9.4 07/14/20 09:39: POC Glucose (Misc Panel) 159H, POC Sodium (Misc Panel) 137, POC Potassium (Misc Panel) 4.1, POC Chloride (Misc Panel) 101, POC Total CO2 (Misc Panel) 29.0H, POC Blood Urea Nitrogen (Misc Panel 33H, POC Ionized Calcium (Misc Panel) 5.0, POC Creatinine (Misc Panel) 2.2H, POC Hematocrit (Misc Panel) 34.0L 07/14/20 09:40: POC Troponin I (Misc) 0.02 07/14/20 13:20: Bedside Glucose (Misc Panel) 241H 07/14/20 17:00: Bedside Glucose (Misc Panel) 333H 07/14/20 19:30: Bedside Glucose (Misc Panel) 322H 07/15/20 06:44: Immature Granulocyte % (Auto) 3.3H, Neutrophils (%) (Auto) 77.6H, Lymphocytes (%) (Auto) 11.5L, Monocytes (%) (Auto) 7.3, Eosinophils (%) (Auto) 0.0, Basophils (%) (Auto) 0.3, Neutrophils # (Auto) 9.2H, Lymphocytes # (Auto) 1.4L, Monocytes # (Auto) 0.9H, Eosinophils # (Auto) 0.0, Basophils # (Auto) 0.0, Nucleated Red Blood Cells % (auto) 0.4H, Anion Gap 6L, Glomerular Filtration Rat e 22.0L, Calcium Level 9.0 CBC/BMP Laboratory Tests 07/14/20 09:25 07/15/20 06:44 Microbiology Microbiology 07/14/20 Respiratory Virus Panel (PCR) ([facility]) - Final, Complete 07/14/20 Blood Culture, Received Pending 07/14/20 Blood Culture, Received Pending ALMA ALEXIS MD Jul 15, 2020 07:59
[2020-07-15] MEDS ORDERED: FUROSEMIDE 100MG/10ML VIAL (J1940) IV SCH (13:00)
[2020-07-15 14:00] VITALS: BP 161/77
[2020-07-15] MEDS ORDERED: EXCEDRIN MIGRAINE TABLET PO PRN (18:25)
[2020-07-15] MEDS: PRAVASTATIN 20 MG TAB PO SCH (21:01)
[2020-07-15 22:00] VITALS: BP 156/78
[2020-07-16] MEDS: FUROSEMIDE 100MG/10ML VIAL (J1940) IV SCH ×2 (05:46→13:04)
[2020-07-16 05:51] LABS: BASO # 0.1 10^3/uL (0.0-0.2); BASO % 0.4 % (0.0-1.0); EOS # 0.2 10^3/uL (0.0-0.5); EOS % 1.3 % (0.0-3.0); HEMOGLOBIN 10.3 g/dl (12.0-15.5); LYMPH # 3.2 10^3/uL (1.5-5.0); LYMPH % 27.1 % (24.0-44.0); MEAN CORPUSCULAR HEMOGLOBIN 27.2 pg (27.0-33.0); MEAN CORPUSCULAR HGB CONC 30.3 g/dl (32.0-36.5); MEAN CORPUSCULAR VOLUME 89.7 fl (80.0-96.0); MONO # 1.2 10^3/uL (0.0-0.8); NEUTROPHILS # 6.9 10^3/uL (1.5-8.5); NEUTROPHILS % 59.6 % (36.0-66.0); PLATELET COUNT, AUTOMATED 243 10^3/uL (150-450); RED BLOOD COUNT 3.79 10^6/uL (4.00-5.40); WHITE BLOOD COUNT 11.7 10^3/uL (4.0-10.0)
[2020-07-16 06:00] VITALS: BP 151/83
[2020-07-16 06:15] LABS: CALCIUM LEVEL 9.1 MG/DL (8.8-10.2); CREATININE FOR GFR 2.29 MG/DL (0.55-1.30); GLOMERULAR FILTRATION RATE 22.8 (>45); POTASSIUM SERUM 3.6 MEQ/L (3.5-5.1)
[2020-07-16] MEDS: HumaLOG INSULIN (NovoLOG) PER UNIT SC SCH ×2 (09:25→13:05)
[2020-07-16] MEDS: LEVEMIR (INSULIN DETEMIR) 1 UNITS/0.01ML SC SCH (09:25)
[2020-07-16 09:26] VITALS: BP 177/92
[2020-07-16] MEDS: GABAPENTIN 300 MG CAP PO SCH ×2 (09:26→13:04)
[2020-07-16] MEDS: CARVedilol 12.5 MG TAB PO SCH (09:26)
[2020-07-16] MEDS: DULoxetine 30 MG CAP (CYMBALTA) PO SCH (09:26)
[2020-07-16] MEDS: amLODIPine 5 MG TAB PO SCH (09:26)
[2020-07-16] MEDS ORDERED: TORS20TA2 PO (10:42)
[2020-07-16 14:00] VITALS: BP 156/89
== END 2020-07-16 18:36 | disposition home or self-care (01) | DRG 291 ==
LOC: M ED 08:46 → M ED INP 11:11 → ENRESERV 11:32 → M MSPAV 13:20
PROVIDERS: ADMIT Internal Medicine Nephrology; ATTEND Internal Medicine Nephrology
DX: I13.0 Hypertensive heart and chronic kidney disease with heart failure and stage 1 through stage 4 chronic kidney disease, or unspecified chronic kidney disease (principal); I50.33 Acute on chronic diastolic (congestive) heart failure; I69.351 Hemiplegia and hemiparesis following cerebral infarction affecting right dominant side; Z68.42 Body mass index [BMI] 45.0-49.9, adult; N18.30 Chronic kidney disease, stage 3 unspecified; I48.0 Paroxysmal atrial fibrillation; E66.01 Morbid (severe) obesity due to excess calories; E11.40 Type 2 diabetes mellitus with diabetic neuropathy, unspecified; E11.22 Type 2 diabetes mellitus with diabetic chronic kidney disease; F41.9 Anxiety disorder, unspecified; F32.9 Major depressive disorder, single episode, unspecified; M21.371 Foot drop, right foot; R32 Unspecified urinary incontinence; I16.0 Hypertensive urgency; Z79.4 Long term (current) use of insulin; Z79.899 Other long term (current) drug therapy; Z88.2 Allergy status to sulfonamides; Z88.8 Allergy status to other drugs, medicaments and biological substances; Z91.041 Radiographic dye allergy status

== ENCOUNTER → 2020-09-03 | Outpatient (REF) | payer MEDICARE ==
[~2020-09-03] MED LIST changes: +AMLO1TAB24 PO; +CARV12.5 PO; +CLON-412 PO; +DOXY-346 PO
== END ==
LOC: M SFHCPLAZ 08:31
PROVIDERS: ATTEND Internal Medicine
DX: Z53.20 Procedure and treatment not carried out because of patient's decision for unspecified reasons (principal)

== ENCOUNTER → 2020-09-03 | Outpatient (CLI) | payer MEDICARE ==
[2020-09-03 10:37] LABS: BASO % 0.5 % (0.0-1.0); EOS # 0.2 10^3/uL (0.0-0.5); EOS % 3.1 % (0.0-3.0); HEMATOCRIT 34.8 % (36.0-47.0); HEMOGLOBIN 10.4 g/dl (12.0-15.5); LYMPH % 31.5 % (24.0-44.0); MEAN CORPUSCULAR HEMOGLOBIN 27.1 pg (27.0-33.0); MEAN CORPUSCULAR HGB CONC 29.9 g/dl (32.0-36.5); MEAN CORPUSCULAR VOLUME 90.6 fl (80.0-96.0); MONO # 0.5 10^3/uL (0.0-0.8); MONO % 7.9 % (2.0-8.0); NEUTROPHILS # 3.6 10^3/uL (1.5-8.5); NEUTROPHILS % 56.1 % (36.0-66.0); PLATELET COUNT, AUTOMATED 198 10^3/uL (150-450); RED BLOOD COUNT 3.84 10^6/uL (4.00-5.40); WHITE BLOOD COUNT 6.5 10^3/uL (4.0-10.0)
[2020-09-03 11:12] LABS: ALBUMIN 3.3 GM/DL (3.2-5.2); BILIRUBIN,TOTAL 0.3 MG/DL (0.2-1.0); CHOLESTEROL RISK RATIO 8.628 (<5); CREATININE FOR GFR 2.43 MG/DL (0.55-1.30); GLOMERULAR FILTRATION RATE 21.3 (>45); MAGNESIUM LEVEL 2.3 MG/DL (1.8-2.4); POTASSIUM SERUM 3.9 MEQ/L (3.5-5.1); TOTAL PROTEIN 6.6 GM/DL (6.4-8.2)
[2020-09-03 11:19] LABS: PTH INTACT 161.2 PG/ML (18.5-88.0)
[2020-09-03 11:28] LABS: FOLATE 8.5 NG/ML
[2020-09-04 08:47] LABS: HEMOGLOBIN A1c 9.4 %
== END ==
LOC: M PLALAB 09:10
PROVIDERS: ATTEND Internal Medicine
DX: I10 Essential (primary) hypertension (principal); E11.49 Type 2 diabetes mellitus with other diabetic neurological complication; N18.4 Chronic kidney disease, stage 4 (severe); G62.9 Polyneuropathy, unspecified; I50.30 Unspecified diastolic (congestive) heart failure

== ENCOUNTER → 2020-10-19 | Outpatient (CLI) | payer MEDICARE ==
--- NOTE | 2020-10-22 16:26 | SLEEPCENT ---
DATE: 10/19/2020 ORDERED BY: AIDEN Stacy Nocturnal polysomnography was performed for evaluation of sleep physiology in this patient with a history of excessive somnolence and nonrestorative sleep. Eight hours and 44 minutes of data were reviewed. There were 455.5 minutes of sleep identified. Sleep latency was short at 1 minute. REM latency was prolonged at 141 minutes. Sleep architecture showed poor progression. There were three brief REM cycles noted. Overall sleep efficiency was 88%. The electrocardiogram showed a sinus rhythm with an average heart rate of 58 beats per minute. Occasional PVCs were appreciated. EEG showed normal waveforms for wake and sleep. There were 119 respiratory events identified of 10 seconds in duration or greater for an apnea-hypopnea index of 15.7. The events were obstructive, not exclusive to sleep stage nor position. Arousals from respiratory events occurred 1.6 times per hour, and oxygen desaturations were seen into the mid 70s. Remaining measures of sleep physiology were normal. IMPRESSION: Obstructive sleep apnea syndrome (G47.33). Apnea-hypopnea index 15.7. RECOMMENDATION: The patient should be encouraged to return to [facility] for pressure [facility]. In the interim, alcohol and sedative avoidance should be practiced and caution exercised during the operation of motor vehicles. cc: Dr. Ghosh
== END ==
LOC: M SLEEP 20:00
PROVIDERS: ATTEND Nurse Practitioner Family
DX: G47.33 Obstructive sleep apnea (adult) (pediatric) (principal)

== ENCOUNTER 2020-10-24 12:57 | Inpatient (IN) | payer MEDICARE ==
[~2020-10-24] VITALS: Ht 147.3 cm; Wt 104.3 kg
[2020-10-24] MEDS ORDERED: ASPIRIN 81 MG CHEW TABLET PO ONE (13:30)
[2020-10-24 13:57] LABS: BASO # 0.1 10^3/uL (0.0-0.2); BASO % 0.6 % (0.0-1.0); EOS # 0.3 10^3/uL (0.0-0.5); EOS % 2.4 % (0.0-3.0); HEMATOCRIT 29.1 % (36.0-47.0); HEMOGLOBIN 9.1 g/dl (12.0-15.5); LYMPH # 2.1 10^3/uL (1.5-5.0); LYMPH % 19.6 % (24.0-44.0); MEAN CORPUSCULAR HEMOGLOBIN 27.5 pg (27.0-33.0); MEAN CORPUSCULAR HGB CONC 31.3 g/dl (32.0-36.5); MEAN CORPUSCULAR VOLUME 87.9 fl (80.0-96.0); MONO # 1.1 10^3/uL (0.0-0.8); MONO % 10.3 % (2.0-8.0); NEUTROPHILS % 64.5 % (36.0-66.0); PLATELET COUNT, AUTOMATED 225 10^3/uL (150-450); RED BLOOD COUNT 3.31 10^6/uL (4.00-5.40); WHITE BLOOD COUNT 10.9 10^3/uL (4.0-10.0)
--- NOTE | 2020-10-24 13:58 | REP ---
INDICATION: CHEST PAIN. COMPARISON: 07/14/2020 and 10/11/2019. TECHNIQUE: Single portable AP view of the chest was performed. FINDINGS: There is cardiomegaly and vascular congestion. There is diffuse interstitial infiltrate or fibrosis unchanged since prior studies. There is moderate elevation of the right hemidiaphragm unchanged. The mediastinal silhouette is unchanged. IMPRESSION: Cardiomegaly, vascular congestion, with diffuse interstitial edema or fibrosis. The findings are similar to prior exams dating back to 10/11/2019 <Electronically signed by Harry Woods > 10/24/20 0213
[2020-10-24 14:07] LABS: PROTHROMBIN TIME 13.6 SECONDS (12.7-14.5)
[2020-10-24 14:10] LABS: D-DIMER QUANT 1758.32 ng/ml (<500)
[2020-10-24 14:11] LABS: ABG BASE EXCESS 0.6 (-2.0-2.0); ABG HCO3 26.3 MEQ/L (22.0-26.0); ABG O2 SATURATION 94.4 % (95.0-99.0); ABG PARTIAL PRESSURE CO2 47.8 mmHg (35.0-45.0); ABG PARTIAL PRESSURE O2 76.2 mmHg (75.0-100.0); ABG STANDARD HCO3 24.9 MEQ/L (22.0-26.0); ABG TOTAL CO2 27.8 MEQ/L (23.0-31.0); ABG pH (ARTERIAL) 7.359 UNITS (7.350-7.450)
[2020-10-24 14:12] LABS: ALT/SGPT 22 U/L (12-78); BILIRUBIN,DIRECT < 0.1 MG/DL (0.0-0.2); BILIRUBIN,TOTAL 0.5 MG/DL (0.2-1.0); BLOOD UREA NITROGEN 41 MG/DL (7-18); CALCIUM LEVEL 9.1 MG/DL (8.8-10.2); CARBON DIOXIDE LEVEL 27 MEQ/L (21-32); CHLORIDE LEVEL 100 MEQ/L (98-107); CK-MB VALUE MASS 3.2 NG/ML (<3.6); CPK CREATINE PHOSPHOKINASE 126 U/L (26-192); CREATININE FOR GFR 2.79 MG/DL (0.55-1.30); GLOMERULAR FILTRATION RATE 18.1 (>45); GLUCOSE, FASTING 154 MG/DL (70-100); MB/CK RELATIVE INDEX 2.54 (< OR =4); SODIUM LEVEL 134 MEQ/L (136-145); TOTAL PROTEIN 6.6 GM/DL (6.4-8.2); TROPONIN I < 0.02 NG/ML (< 0.10)
[2020-10-24 14:49] LABS: RSV AMPLIFICATION NEGATIVE (NEGATIVE)
[2020-10-24] MEDS ORDERED: diphenhydrAMINE 50MG/ML VIAL (J1200) IV STA (17:08)
--- NOTE | 2020-10-24 17:11 | REP ---
INDICATION: edema COMPARISON: None. TECHNIQUE: Real time compression and duplex Doppler interrogation of the right lower extremity deep venous system is performed, including the left common femoral vein.Compression of the right peroneal and posterior tibial veins is performed. FINDINGS: The right common femoral, superficial femoral and popliteal veins are fully compressible with transducer pressure and demonstrate normal spontaneous and phasic flow, without evidence of deep venous thrombosis.The left common femoral vein demonstrates no thrombus.The right peroneal and posterior tibial veins could not be seen due to soft tissue edema. IMPRESSION: No evidence of deep venous thrombosis of the right lower extremity femoral popliteal venous system. <Electronically signed by Harry Woods > 10/24/20 [id number]
[2020-10-24] MEDS ORDERED: NS 500 ML IV ONE (18:25)
[2020-10-24] MEDS ORDERED: ISOVUE-370 76% 100ML VIAL As Ordered ONE (18:45)
--- NOTE | 2020-10-24 19:10 | ECGEPIP ---
[facility] - ED Test Date: 2020-10-24 Pat Name: FER AMBROCIO Department: Room: - Gender: Female Case Supervisor: : 1955 Requested By: FRANCINE WOLFE Order Number: [id number] Reading MD: Harmony Chacon Measurements Intervals [place] Rate: 85 P: 70 ID: [id number] QRS: 42 QRSD: 86 T: 31 QT: 390 QTc: 464 Interpretive Statements Normal sinus rhythm NSTTW abnormalities decreased rate 07/14/20 Electronically Signed on 10-24-2020 19:09:57 EDT by Harmony Chacon
--- NOTE | 2020-10-24 20:48 | REPVR ---
PROCEDURE INFORMATION: Exam: CTA Chest With Contrast Exam date and time: 10/24/2020 8:02 PM Age: 65 years old Clinical indication: Shortness of breath; Patient HX: PT creat 2.79. 50cc ok per Dr. Woods; Additional info: SOB TECHNIQUE: Imaging protocol: Computed tomographic angiography of the chest with contrast. 3D rendering (Not supervised by radiologist): MIP and/or 3D reconstructed images were created by the technologist. Radiation optimization: All CT scans at this facility use at least one of these dose optimization techniques: automated exposure control; mA and/or kV adjustment per patient size (includes targeted exams where dose is matched to clinical indication); or iterative reconstruction. Contrast material: ISOVUE 370; Contrast volume: 50 ml; Contrast route: INTRAVENOUS (IV); COMPARISON: CT Chest without contrast 12/21/2018 12:27 PM FINDINGS: Pulmonary arteries: There are no pulmonary emboli. Aorta: There is mild atherosclerosis in the thoracic aorta. There is no aortic dissection or aneurysm. Lungs: Bilateral geographic ground-glass opacities demonstrated in the mid and upper lung zones associated with smooth septal thickening consistent with interstitial edema. Possibility of multifocal pneumonitis to be excluded clinically. Bibasilar infiltrates likely atelectatic. Clinical correlation to exclude infection suggested. Noncalcified pulmonary parenchymal nodules on the right measure up to 7 mm. Pleural spaces: Small bilateral pleural effusions. Heart: There is mild atherosclerotic calcification of the coronary arteries. Cardiomegaly. Lymph nodes: Unremarkable. No enlarged lymph nodes. Bones/joints: Unremarkable. No acute fracture. Soft tissues: Unremarkable. IMPRESSION: 1. Bilateral geographic ground-glass opacities demonstrated in the mid and upper lung zones associated with smooth septal thickening consistent with interstitial edema. Possibility of multifocal pneumonitis to be excluded clinically. 2. Bibasilar infiltrates likely atelectatic. Clinical correlation to exclude basilar infection suggested. 3. Small bilateral pleural effusions. 4. Noncalcified pulmonary parenchymal nodules on the right measure up to 7 mm. For patients at low risk (minimal or absent history of smoking and of other known risk factors), recommend CT Chest at 3-6 months, then consider CT Chest at 18-24 months. For patients at high risk (history of smoking or of other known risk factors), recommend CT Chest at 3-6 months, then CT Chest at 18-24 months. (Reference: Chema) References: MacMahon H, et al. Guidelines for Management of Incidental Pulmonary Nodules Detected on CT Images: From the Fleischner Society 2017. Radiology. 2017;284(1):228-243. 5. There is no aortic dissection or aneurysm. 6. Cardiomegaly. 7. There are no pulmonary emboli. Electronically signed by: Darrick Miles On 10/24/2020 20:47:32 PM
[2020-10-24] MEDS ORDERED: AZITHROMYCIN INJ 500 MG, VIAL MATE ADAPTER 1 EACH in NS 250 ML IV ONE (20:55)
[2020-10-24] MEDS ORDERED: cefTRIAXone SOD 2 GM in D5W MINI-BAG PLUS 50 ML IV ONE (20:55)
[2020-10-24] MEDS: HumaLOG INSULIN (NovoLOG) PER UNIT SC SCH (21:00)
[2020-10-24] MEDS ORDERED: IPRATROPIUM 0.5MG/ALBUTEROL 2.5MG INH SOL UD 3ML (DUONEB) NEB SCH (21:05)
[2020-10-24] MEDS ORDERED: MAALOX 30 ML SUSP *UDC PO PRN (21:15)
[2020-10-24] MEDS ORDERED: GLUCOSE 4GM CHEW TABLET PO PRN (21:15)
[2020-10-24] MEDS ORDERED: MOM 30ML SUSPENSION UDC PO PRN (21:15)
[2020-10-24] MEDS ORDERED: GLUCAGON INJ 1MG VIAL SC PRN (21:15)
[2020-10-24] MEDS ORDERED: DEXTROSE 50% 50 ML SYRINGE IV PRN (21:15)
[2020-10-24] MEDS ORDERED: ACET-897 PO (23:00)
[2020-10-24] MEDS ORDERED: MULTCHW12 PO (23:00)
[2020-10-24] MEDS ORDERED: TRUL0.5I SC (23:00)
[2020-10-24] MEDS ORDERED: TORS20TA2 PO (23:00)
[2020-10-24] MEDS ORDERED: HOME MED LIST COMPLETE! XX SCH (23:05)
[2020-10-24] MEDS: FUROSEMIDE 40MG/4ML VIAL (J1940) IV SCH (23:39)
[2020-10-24] MEDS: cloNIDine 0.2 MG TAB PO SCH (23:39)
[2020-10-24] MEDS ORDERED: ACETAMINOPH W/CODEINE #3 TAB UD PO PRN (23:50)
--- NOTE | 2020-10-25 00:40 | HPEPDOC ---
[facility] Medical History & Physical Date of Admission Oct 24, 2020 Date of Service: Oct 24, 2020 Primary Care Physician: Demetria Cat Attending Physician: GENARO WISE MD History and Physical TIME OF SERVICE: 940pm CHIEF COMPLAINT: not feeling good HISTORY OF PRESENT ILLNESS: , a 65 yr old F, presented w c/o not feeling good for a few days; she has been short of breath especially when she walks or tries to talk and feeling light headed. She has a cough that is productive but is not sure what the color of the sputum is. She also has chills but denies hav ing a runny nose, denies fevers, denies chest pain (though EMS intake notes documented c/o chest pain) & denies abdominal pain. . Her legs are chronically swollen; she wears compression stockings during the day. Earlier on during the day she noticed that her O2 sats were in the 80s. Of note the dose of her water-pill was recently doubled which thinks may have helped with her shortness of breath a bit. REVIEW OF SYSTEMS: 10-point review of systems negative except as listed in HPI PAST MEDICAL/ SURGICAL HISTORY: Chronic HFpEF Essential HTN DM w neuropathy Paroxysmal? A. Fib DLP CKD 4 with hyperparathyroidism SHANA (report reviewed, second sleep study will be scheduled soon) MDD Anxiety Class 3 obesity Migraines hx of CVA w residual right foot drop Vitamin D deficiency Hemorrhoids Tubal ligation / 2 ectopic pregnancies Breast reduction surgery Appendectomy Bariatric Surgery ? (based on her clinic notes the patient had Bariatric surgery done by , but the patient told me she is planning to have a Bariatric procedure soon pending her Surgeon receiving cardiac clearance from ) FAMILY HISTORY: Father had AAA, Mother had Cancer & hypothyroidism SOCIAL HISTORY: She doesnt smoke, completed high school and lives with her ALLERGIES: Please see below. HOME MEDICATIONS: Please see below. PHYSICAL EXAMINATION: Vital Signs Date Time Temp Pulse Resp B/P (MAP) Pulse Ox O2 Delivery O2 Flow Rate FiO2 10/24/20 12:59 98.3 86 18 164/74 (104) 90 Room Air 10/24/20 13:40 3.0 GENERAL APPEARANCE: well-nourished and developed/ NAD HEENT: EOMI / MMM&P / NC in place CARDIOVASCULAR: RRR/NMRG / no P-pulmonale / +3 pitting edema up to the knees LUNGS: she has difficulties speaking a full sentence w/o having to stop and take a breath / she is not using accessory muscles / it Is difficult to discern her breath sounds because of her body habitus ABDOMEN: contour convex/ soft & NT w palpation MUSCULOSKELETAL: NCAT / REJI x 4 extremities INTEGUMENT: she is not flushed pale or diaphoretic NEUROLOGICAL: CN 2-12 grossly intact / speech not dysarthric PSYCHIATRIC: A&O / able to understand and follow all commands LABORATORY DATA: IMAGING: Chest xray IMPRESSION: Cardiomegaly, vascular congestion, with diffuse interstitial edema or fibrosis. The findings are similar to prior exams dating back to 10/11/2019. Vascular US IMPRESSION: No evidence of deep venous thrombosis of the right lower extremity femoral popliteal venous system. CTA chest IMPRESSION: 1. Bilateral geographic ground-glass opacities demonstrated in the mid and upper lung zones associated with smooth septal thickening consistent with interstitial edema. Possibility of multifocal pneumonitis to be excluded clinically. 2. Bibasilar infiltrates likely atelectatic. Clinical correlation to exclude basilar infection suggested. 3. Small bilateral pleural effusions. 4. Noncalcified pulmonary parenchymal nodules on the right measure up to 7 mm. For patients at low risk (minimal or absent history of smoking and of other known risk factors), recommend CT Chest at 3-6 m onths, then consider CT Chest at 18-24 months. For patients at high risk (history of smoking or of other known risk factors), recommend CT Chest at 3-6 months, then CT Chest at 18-24 months. (Reference: Chema) References: Chema Mitchell, et al. Guidelines for Management of Incidental Pulmonary Nodules Detected on CT Images: From the Fleischner Society 2017. Radiology. 2017;284(1):228-243. 5. There is no aortic dissection or aneurysm. 6. Cardiomegaly. 7. There are no pulmonary emboli. MICROBIOLOGY: Respiratory panel is neg ASSESSMENT: is a 65 yr HFpEF, HTN, DM w neuropathy, A. Fib? , CKD 4, SHANA, MDD, Anxiety, obesity, & CVA who is admitted for acute on chronic HFpEF & PATRICK on CKD 4. PLAN: 1 Acute on chronic HFpEF -She was started on abx for PNA in the ER. -Because she doesnt have a fever or leucocytosis I am not convinced that she has PNA. -Because she has congestion on chest xray and a hx of CHF, which based on JAMAs article Does this dyspneic patient in the ER have CHF? are associated with positive likelihood ratios of 12 and 5.8 respectively of acute CHF I think her dyspnea is due to fluid overload. 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 Plan: f/u PTH, Phosp, renal US / lasix / the day time team may consider placing a Nephro consult (she has already been referred to the Nephrology group by ) 3 NN Anemia -Likely anemia of chronic dz Plan: f/u iron studies and stool occult 4 Uncontrolled / Resistant Essential HTN Plan: amlodipine, lasix, carvedilol, clonidine, hydralazine 5 DM w neuropathy Plan: diabetic diet / f/u accuchecks / hypoglycemia protocol / sliding scale insulin / reduce long acting insulin from 60 units BID to 40 units BID for now / f/u A1C / her PCP may consider out pt Endo referral to switch the patient from basal bolus injection to continuous subcutaneous insulin infusion which has been shown to produced small improvements in A1C, improve QOL and reduce episodes of severe hypoglycemia / c/w gabapentin 6 Paroxysmal? A. Fib -This is [facility] as a diagnosis [facility] -Her most recent EKG showed NSR Plan: f/u telemetry readings / she is not on AC / will ask the day time team to touch base with or her PCP to confirm the diagnosis prior to starting AC 7 SHANA Plan: c/w O2 8 MDD / Anxiety Plan: duloxetine 9 hx of CVA w residual right foot drop Plan: start atorvastatin & ASA 10 Class 3 obesity Plan: complicates care / has been referred for Bariatric surgery DVT px w heparin (Nai Prediction Score to determine the in-patient risk of VTE & need for anticoagulation is 6 points. Individuals with a Nai Score <4 are low risk of VTE and thromboprophylaxis should be considered on a cmee-cw-hogp basis while individuals with a Nai score >4 are high risk for VTE and will likely benefit from thromboprophylaxis unless the patient has major contraindication such as major bleeding or thrombocytopenia). Dispo: home after at least 2 midnights stay Home Medications Scheduled Amlodipine Besylate (Amlodipine Besylate) 5 Mg Tablet, 5 MG PO DAILY Carvedilol (Carvedilol) 12.5 Mg Tablet, 25 MG PO BID Clonidine HCl (Clonidine HCl) 0.1 Mg Tablet, 0.2 MG PO BID Dulaglutide (Trulicity) 1.5 Mg/0.5 Ml Pen.injctr, 1.5 MG SC QWEEK FRIDAYS Duloxetine Hcl (Duloxetine HCl) 60 Mg Capsule.dr, 60 MG PO BID Folic Acid/Multivit-Min/Lutein (Multi-Vitamin Gummies) 1 Each Tab.chew, 2 CHW PO DAILY Gabapentin (Gabapentin) 600 Mg Tablet, 600 MG PO QID Hydralazine HCl (Hydralazine HCl) 25 Mg Tab, 25 MG PO TID Insulin Glargine,Hum.rec.anlog (Basaglar Kwikpen U-100) 100 Unit/1 Ml Insuln.pen, 60 UNIT SC BID Torsemide (Torsemide) 20 Mg Tablet, 40 MG PO BID Scheduled PRN Acetaminophen (Tylenol Extra Strength) 500 Mg Tablet, 1,000 MG PO Q6H PRN for PAIN LEVEL 1-5 Acetaminophen with Codeine (Acetaminophen-Cod #3 Tablet) 1 Each Tablet, 1 TAB PO QHS PRN for MODERATE PAIN (PS 5-7) Allergies Coded Allergies: Sulfa (Sulfonamide Antibiotics) (Verified Allergy, Unknown, 10/31/18) atropine (Verified Allergy, Unknown, 10/31/18) Contrast Media (Verified Adverse Reaction, Mild, VOMITING, 10/24/20) A-FIB/CHADSVASC A-FIB History Current/History of A-Fib/PAF?: Yes Current PO Anticoag Therapy: No Treatment Treatment ordered: GENARO Cruz MD Oct 25, 2020 00:40
[2020-10-25] MEDS: DULoxetine 30MG CAPSULE (CYMBALTA) PO SCH ×3 (02:00→21:34)
[2020-10-25] MEDS: **hydrALAZINE HCL** 25 MG TAB PO SCH ×4 (02:00→21:36)
[2020-10-25] MEDS: GABAPENTIN 300 MG CAP PO SCH ×5 (02:00→21:34)
[2020-10-25] MEDS: LEVEMIR (INSULIN DETEMIR) 1 UNITS/0.01ML SC SCH ×3 (02:01→21:36)
[2020-10-25] MEDS: CARVedilol 12.5 MG TAB PO SCH ×3 (03:00→21:35)
[2020-10-25] MEDS: FUROSEMIDE 40MG/4ML VIAL (J1940) IV SCH ×4 (04:00→21:34)
[2020-10-25] MEDS: HEPARIN SOD (PORCINE) 5000UNITS/ML 1ML VIAL/SYRINGE SQ SCH ×3 (06:00→21:36)
[2020-10-25 07:29] LABS: HEMATOCRIT 29.8 % (36.0-47.0); HEMOGLOBIN 9.3 g/dl (12.0-15.5); MEAN CORPUSCULAR HEMOGLOBIN 27.1 pg (27.0-33.0); MEAN CORPUSCULAR HGB CONC 31.2 g/dl (32.0-36.5); MEAN CORPUSCULAR VOLUME 86.9 fl (80.0-96.0); PLATELET COUNT, AUTOMATED 224 10^3/uL (150-450); RED BLOOD COUNT 3.43 10^6/uL (4.00-5.40); WHITE BLOOD COUNT 10.8 10^3/uL (4.0-10.0)
[2020-10-25] MEDS: HumaLOG INSULIN (NovoLOG) PER UNIT SC SCH ×4 (07:30→21:00)
[2020-10-25 07:54] LABS: CALCIUM LEVEL 8.7 MG/DL (8.8-10.2); CREATININE FOR GFR 2.51 MG/DL (0.55-1.30); GLOMERULAR FILTRATION RATE 20.5 (>45); MAGNESIUM LEVEL 2.3 MG/DL (1.8-2.4); PERCENT SATURATION 9.3 % (13.2-45.0)
[2020-10-25] MEDS ORDERED: ENOXAPARIN 40MG/0.4ML SYRINGE (J1650 PER 10MG) SC SCH (09:00)
[2020-10-25] MEDS ORDERED: CARVedilol 12.5 MG TAB PO SCH (09:00)
[2020-10-25] MEDS: amLODIPine 5 MG TAB PO SCH (09:00)
[2020-10-25] MEDS ORDERED: cloNIDine 0.1MG TABLET PO SCH (09:00)
[2020-10-25] MEDS: cloNIDine 0.2 MG TAB PO SCH ×2 (09:01→21:35)
[2020-10-25 09:39] LABS: HEMOGLOBIN A1c 8.5 %
[2020-10-25 09:54] LABS: FOLATE 15.8 NG/ML
--- NOTE | 2020-10-25 11:48 | IPNPDOC ---
Subjective Date Seen The patient was seen on 10/25/20. Subjective Chief Complaint/HPI Patient was seen and examined at bedside this morning. She reports having shortness of breath for approximately 1 to 2 days and noted that her oxygen saturation dropped to 66% on her home pulse ox on day 1, however did not seek immediate medical attention, however on day 2 she began to feel short of breath which prompted her to come to the emergency room department. She reports sleeping upright for approximately 1 to 2 years, which she finds is more comfortable. She denied orthopnea and paroxysmal nocturnal dyspnea. She did note lower extremity edema for last several months. At this junction, she reported feeling short of breath, she denied chest pain, palpitations, abdominal pain, nausea, vomiting, problems with urination and bowel movements. Objective Physical Examination Other physical findings General: Lying in bed, no acute distress Head/Neck/Throat: Trachea midline, mucous membranes moist Eyes: Sclera anicteric, no erythema or discharge appreciated bilateral Thorax: Normal respiratory effort on room air, lungs clear to auscultation bilaterally, no wheezes/rales/rhonchi Cardiovascular: Normal rate, regular rhythm, normal S1, S2; difficult to appreciate JVD, 2+ pitting edema in lower extremities bilateral. 2+ pedal pulses Abdomen: Bowel sounds present, soft/nontender/nondistended Genitourinary: No CVA tenderness, no Atkins in place Musculoskeletal: Moving all extremities Skin: Warm, dry Neurologic: AAOx3, speech fluent and goal-directed, no focal deficits, grossly i ntact Assessment /Plan Assessment #Acute on chronic diastolic heart failure -HFpEF last echocardiogram done on 07/12/20 noted LVEF of 65%, with grade 1 diastolic dysfunction. NYHA class IV. -IV Furosemide 40mg BID. Daily weights. Monitor I/O. #Hypoxia -Require supplemental 02 to maintain O2 saturation. CTA of chest negative for PE. Low suspicion for PNA. Likely due to her heart failure. -Titrate 02 for goal of 92-96%. #Acute on chronic kidney failure -Creatine in 07/30 was 2.36 mg/dL. Likely cardiorenal, continue with diuresis. -pt received contrast in the emergency room for cta, will add IV fluids at slow rate in addition to lasix to prevent further kidney injury #Hypertensive emergency -Resolved. BP over 185 in addition to renal failure. -Resumed on home antihypertensives #Hypertension -continue with amlodipine, carvedilol, clonidine, and hydralazine. #CVA -w/ residual rt facial droop. Continue aspirin and statin therapy. 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 Presently NSR. #SHANA -being worked up as o/p not on cpap as of yet. #DVT PPX -heparin subq Plan/VTE VTE Prophylaxis Ordered?: Yes VS, I&O, 24H, Fishbone Vital Signs/I&O Vital Signs Date Time Temp Pulse Resp B/P (MAP) Pulse Ox O2 Delivery O2 Flow Rate FiO2 10/25/20 09:01 145/64 10/25/20 08:58 16 97 Nasal Cannula 3.0 10/25/20 06:51 93 10/24/20 12:59 98.3 I&O- Last 24 Hours up to 6 AM 10/25/20 06:00 Intake Total 255 ml Balance 255 ml Laboratory Data 24H LABS Laboratory Tests 2 10/24/20 13:36: Immature Granulocyte % (Auto) 2.6, Neutrophils (%) (Auto) 64.5, Lymphocytes (%) (Auto) 19.6L, Monocytes (%) (Auto) 10.3H, Eosinophils (%) (Auto) 2.4, Basophils (%) (Auto) 0.6, Neutrophils # (Auto) 7.0, Lymphocytes # (Auto) 2.1, Monocytes # (Auto) 1.1H, Eosinophils # (Auto) 0.3, Basophils # (Auto) 0.1, Nucleated Red Blo od Cells % (auto) 0.3H, Prothrombin Time 13.6, Prothromb Time International Ratio 1.00, D-Dimer, Quantitative 1758.32H, Blood Gas Bicarbonate Standard 24.9, Arterial Blood pH 7.359, Arterial Blood Partial Pressure CO2 47.8H, Arterial Blood Partial Pressure O2 76.2, Arterial Blood Total CO2 27.8, Arterial Blood HCO3 26.3H, Arterial Blood Base Excess 0.6, Arterial Blood Oxygen Saturation 94.4L, Anion Gap 7L, Glomerular Filtration Rate 18.1L, Calcium Level 9.1, Total Bilirubin 0.5, Direct Bilirubin < 0.1, Aspartate Amino Transf (AST/SGOT) 12, Alanine Aminotransferase (ALT/SGPT) 22, Alkaline Phosphatase 63, Total Creatine Kinase 126, Creatine Kinase MB 3.2, Creatine Kinase MB Relative Index 2.54, Troponin I < 0.02, Total Protein 6.6, Albumin 3.0L, Albumin/Globulin Ratio 0.8L, Coronavirus (COVID-19)(PCR) NEGATIVE, Influenza Type A (RT-PCR) NEGATIVE, Influenza Type B (RT-PCR) NEGATIVE, Respiratory Syncytial Virus (PCR) NEGATIVE 10/24/20 13:48: Lactic Acid Level 0.7 10/24/20 22:23: Bedside Glucose (Misc Panel) 97 10/25/20 07:18: Nucleated Red Blood Cells % (auto) 0.3H, Anion Gap 9, Glomerular Filtration Rate 20.5L, Calcium Level 8.7L, Estimated Mean Plasma Glucose 197H, Hemoglobin A1c 8.5, Magnesium Level 2.3, Iron Level 25L, Total Iron Binding Capacity 268, Transferrin % Saturation 9.3L, Ferritin 112, HA-Azy-G-Type Natriuretic Peptide 1245H, Vitamin B12 Level 526, Folate 15.8 10/25/20 08:55: Bedside Glucose (Misc Panel) 105 CBC/BMP Laboratory Tests 10/24/20 13:36 10/25/20 07:18 Microbiology Microbiology 10/24/20 Blood Culture, Received Pending 10/24/20 Blood Culture, Received Pending ANABELL ZAPATA M.D. Oct 25, 2020 11:44
[2020-10-25] MEDS: NS 1,000 ML IV SCH (12:41)
[2020-10-25 15:25] VITALS: BP 141/72
[2020-10-25 15:47] VITALS: O2SAT 97
[2020-10-25 15:53] VITALS: BP 141/72
--- NOTE | 2020-10-25 18:41 | REP ---
INDICATION: PATRICK COMPARISON: None TECHNIQUE: Real time palma scale ultrasound examination using curved array transducer. FINDINGS: Kidneys are normal in contour, size, echogenicity, and reniform shape. No hydronephrosis, nephrolithiasis, cystic or renal mass lesion. Right kidney measures 9.8 x 5.7 x 5.2 cm. Left kidney measures 10.2 x 4.0 x 4.4 cm. IMPRESSION: 1. Normal renal ultrasound. <Electronically signed by Lencho Pena > 10/25/20 [id number]
[2020-10-25] MEDS ORDERED: FUROSEMIDE 40MG/4ML VIAL (J1940) IV SCH (20:00)
[2020-10-25 21:00] VITALS: O2SAT 91
[2020-10-25 21:25] VITALS: BP 152/67
[2020-10-26] MEDS: NS 1,000 ML IV SCH (04:25)
[2020-10-26 06:00] VITALS: BP 132/52
[2020-10-26] MEDS: HEPARIN SOD (PORCINE) 5000UNITS/ML 1ML VIAL/SYRINGE SQ SCH ×3 (06:00→21:40)
[2020-10-26] MEDS: FUROSEMIDE 40MG/4ML VIAL (J1940) IV SCH ×3 (06:00→21:40)
[2020-10-26 06:20] LABS: HEMATOCRIT 26.7 % (36.0-47.0); HEMOGLOBIN 8.2 g/dl (12.0-15.5); MEAN CORPUSCULAR HEMOGLOBIN 27.3 pg (27.0-33.0); MEAN CORPUSCULAR HGB CONC 30.7 g/dl (32.0-36.5); PLATELET COUNT, AUTOMATED 201 10^3/uL (150-450); WHITE BLOOD COUNT 8.2 10^3/uL (4.0-10.0)
[2020-10-26 06:42] LABS: CALCIUM LEVEL 7.9 MG/DL (8.8-10.2); CREATININE FOR GFR 2.74 MG/DL (0.55-1.30); GLOMERULAR FILTRATION RATE 18.5 (>45); MAGNESIUM LEVEL 2.1 MG/DL (1.8-2.4); POTASSIUM SERUM 3.8 MEQ/L (3.5-5.1)
[2020-10-26] MEDS: HumaLOG INSULIN (NovoLOG) PER UNIT SC SCH ×4 (07:30→20:17)
[2020-10-26 08:30] VITALS: O2SAT 95
[2020-10-26] MEDS: LEVEMIR (INSULIN DETEMIR) 1 UNITS/0.01ML SC SCH ×2 (09:00→21:40)
[2020-10-26] MEDS: GABAPENTIN 300 MG CAP PO SCH ×4 (09:14→21:38)
[2020-10-26] MEDS: DULoxetine 30MG CAPSULE (CYMBALTA) PO SCH ×2 (09:14→21:38)
[2020-10-26] MEDS: **hydrALAZINE HCL** 25 MG TAB PO SCH ×3 (09:15→21:39)
[2020-10-26] MEDS: CARVedilol 12.5 MG TAB PO SCH ×2 (09:15→21:39)
[2020-10-26] MEDS: amLODIPine 5 MG TAB PO SCH (09:15)
[2020-10-26] MEDS: cloNIDine 0.2 MG TAB PO SCH ×2 (09:15→21:39)
[2020-10-26 14:00] VITALS: BP 138/69
--- NOTE | 2020-10-26 18:32 | IPNPDOC ---
Subjective Date Seen The patient was seen on 10/26/20. Subjective Chief Complaint/HPI Patient was seen and examined at bedside this morning. She reports significant improvement in her breathing and was asking to go home. She was explained that she would benefit from IV diuretics, and she was in agreement with staying. Objective Physical Examination Other physical findings General: Lying in bed, no acute distress Head/Neck/Throat: Trachea midline, mucous membranes moist Eyes: Sclera anicteric, no erythema or discharge appreciated bilateral Thorax: Normal respiratory effort on room air, lungs clear to auscultation bilaterally, no wheezes/rales/rhonchi Cardiovascular: Normal rate, regular rhythm, normal S1, S2; difficult to appreciate JVD, 2+ pitting edema in lower extremities bilateral. 2+ pedal pulses Abdomen: Bowel sounds present, soft/nontender/nondistended Genitourinary: No CVA tenderness, no Atkins in place Musculoskeletal: Moving all extremities Skin: Warm, dry Neurologic: AAOx3, speech fluent and goal-directed, no focal deficits, grossly intact Assessment /Plan Assessment #Acute on chronic diastolic heart failure -HFpEF last echocardiogram done on 07/12/20 noted LVEF of 65%, with grade 1 diastolic dysfunction. NYHA class IV. -IV Furosemide 40mg BID. Daily weights. Monitor I/O. #Hypoxia -Require supplemental 02 to maintain O2 saturation. CTA of chest negative for PE. Low suspicion for PNA. Likely due to her heart failure. -Titrate 02 for goal of 92-96%. #Acute on chronic kidney failure -Creatine in 07/30 was 2.36 mg/dL. Likely cardiorenal, continue with diuresis. -pt received contrast in the emergency room for cta, continue to monitor #Hypertensive emergency -Resolved. BP over 185 in addition to renal failure. -Resumed on home antihypertensives #Hypertension -continue with amlodipine, carvedilol, clonidine, and hydralazine. #CVA -w/ residual rt facial droop. Continue aspirin and statin therapy. 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 Presently NSR. #SHANA -being worked up as o/p not on cpap as of yet. #DVT PPX -heparin subq Plan/VTE VTE Prophylaxis Ordered?: Yes VS, I&O, 24H, Fishbonparker Vital Signs/I&O Vital Signs Date Time Temp Pulse Resp B/P (MAP) Pulse Ox O2 Delivery O2 Flow Rate FiO2 10/26/20 15:27 143/69 10/26/20 14:00 97.8 89 16 94 Nasal Cannula 2.0 I&O- Last 24 Hours up to 6 AM 10/26/20 06:00 Intake Total 1295 ml Output Total 1000 ml Balance 295 ml Laboratory Data 24H LABS Laboratory Tests 2 10/25/20 21:26: Bedside Glucose (Misc Panel) 157H 10/26/20 06:04: Nucleated Red Blood Cells % (auto) 0.0, Anion Gap 8, Glomerular Filtration Rate 18.5L, Calcium Level 7.9L, Phosphorus Level 5.0H, Magnesium Level 2.1 10/26/20 09:03: Bedside Glucose (Misc Panel) 53L 10/26/20 09:39: Bedside Glucose (Misc Panel) 92 10/26/20 11:21: Bedside Glucose (Misc Panel) 132H 10/26/20 13:11: Bedside Glucose (Misc Panel) 108 10/26/20 16:36: Bedside Glucose (Misc Panel) 183H CBC/BMP Laboratory Tests 10/26/20 06:04 Microbiology Microbiology 10/24/20 Blood Culture - Preliminary, Resulted No growth after 24 hours . All specim... 10/24/20 Blood Culture - Preliminary, Resulted No growth after 24 hours . All specim... ANABELL ZAPATA M.D. Oct 26, 2020 18:27
[2020-10-26] MEDS: ACETAMINOPHEN TAB 650MG DOSE (2X325MG) PO PRN (19:45)
[2020-10-26 21:00] VITALS: O2SAT 92
--- NOTE | 2020-10-26 21:10 | CR ---
NEPHROLOGY CONSULTATION DATE: 10/24/2020 REASON FOR CONSULTATION: Acute kidney injury superimposed on chronic kidney disease. HISTORY OF PRESENT ILLNESS: Ms. Barone is a 65-year-old female with a history of morbid obesity in addition to multiple other chronic medical problems. She is trying to get bariatric surgery and is waiting for clearance. She tells me that she was scheduled to see me in the office for clearance; however, she ended up in the emergency room a couple of days ago not feeling well. She was found to be in decompensated congestive heart failure. She is also noticed to have acute kidney injury superimposed on chronic kidney disease. It is important to notice that patient received intravenous (IV) contrast for CT angiogram in the emergency room, as she was short of breath. PAST MEDICAL HISTORY: Significant for: 1. History of chronic diastolic congestive heart failure. 2. Essential hypertension. 3. History of stage III to stage IV chronic kidney disease. 4. History of secondary hyperparathyroidism. 5. History of type 2 diabetes complicated by diabetic neuropathy. 6. History of paroxysmal atrial fibrillation. 7. Dyslipidemia. 8. Obstructive sleep apnea. 9. Anxiety. 10. History of migraines. 11. Prior history of cerebrovascular accident (CVA) with residual right foot drop. 12. History of vitamin D deficiency. PAST SURGICAL HISTORY: Significant for: 1. Tubal ligation. 2. Two ectopic pregnancies. 3. Breast reduction. 4. Appendectomy. 5. Plan for bariatric surgery in the near future. FAMILY HISTORY: Father had abdominal aortic aneurysm. Mother had cancer and hypothyroidism. PERSONAL AND SOCIAL HISTORY: Patient has no history of alcohol, drug or tobacco use. MEDICATIONS: Her medications include: - amlodipine 5 mg daily - carvedilol 25 mg twice a day - clonidine 0.2 mg twice a day - Trulicity 1.5 mg once a week - Cymbalta 60 mg twice a day - multivitamin one tablet daily - gabapentin 600 mg four times a day - hydralazine 25 mg three times a day - Basaglar insulin 60 units twice a day - torsemide 40 mg twice a day ALLERGIES: She has allergies to SULFA, ATROPINE and INTRAVENOUS (IV) CONTRAST. REVIEW OF SYSTEMS: She denies any fever or chills. She was just not feeling well and was short of breath on admission. She is still somewhat short of breath and using oxygen. EARS, NOSE AND THROAT: Unremarkable. CARDIOVASCULAR SYSTEM: Significant for peripheral edema and shortness of breath, but denies any chest pain. RESPIRATORY SYSTEM: Negative for cough or hemoptysis. GASTROINTESTINAL (GI) SYSTEM: Significant for nausea and decreased appetite. She denies any abdominal pain or diarrhea. GENITOURINARY () SYSTEM: Negative for dysuria or hematuria. MUSCULOSKELETAL SYSTEM: Significant for morbid obesity and leg edema. She denies any significant arthritis. No history of nonsteroidal antiinflammatory (NSAID) use. ENDOCRINE SYSTEM: Significant for type 2 diabetes and secondary hyperparathyroidism. NEUROLOGICAL SYSTEM: Significant for peripheral neuropathy and prior history of stroke and foot drop. HEMATOLOGICAL SYSTEM: Significant for anemia. SKIN: Negative for rash or ulcers. Other systems are reviewed and found to be unremarkable. PHYSICAL EXAMINATION: VITAL SIGNS: Temperature 97.9 degrees Fahrenheit, heart rate 88 per minute, respiratory rate 16 per minute, blood pressure 119/84 mmHg, oxygen saturation 95% on 2 liters oxygen. HEAD: Atraumatic. She has mild facial edema. NECK: Supple and jugular venous distention (JVD) is moderately elevated. HEART SOUNDS: Regular. LUNGS: Diminished breath sounds and a few basilar rales. ABDOMEN: Obese, soft and nontender. Bowel sounds are normal. There is no organomegaly. EXTREMITIES: Without any cyanosis or clubbing. Lower extremity edema is 2+. SKIN: Negative for rash or ulcers. NEUROLOGIC: She is awake, alert and oriented times three. LABORATORY DATA: On admission, her WBC was 10.9, hemoglobin 9.1 and hematocrit 29. Today, WBC 8.2, hemoglobin 8.2 and hematocrit 26.7. Her chemistry today showed BUN 37 and creatinine 2.74, calcium 7.9 and phosphorus 5.0, sodium 141, potassium 3.8, CO2 29. Blood gas showed a pH of 7.35, pCO2 47.8 and pO2 76.2, bicarbonate 24.9. She had a renal ultrasound, which did not show any hydronephrosis and both kidneys are about [address] angiogram of chest was negative for pulmonary embolus. Chest x-ray done in the emergency room on admission did show cardiomegaly and vascular congestion. PROBLEMS: 1. Acute kidney injury superimposed on chronic kidney disease. On admission, her creatinine was 2.79. She has known history of chronic kidney disease. However, baseline is not confirmed as yet. At this point, kidney function does not seem to be much different from her chronic baseline. She does not seem to have any uremic symptoms. Her kidney function will need to be monitored closely in view of congestive heart failure and need for diuresis. In July this year, her creatinine was between 2.0 and 2.4. It seems to me that she is not too far from her baseline. In 2018, her creatinine was 1.7. There is no urinalysis today; however, prior urine studies from last year show a urine microalbumin over creatinine did show about 2000, which is consistent with diabetic nephropathy. Urinalysis in 2018 also showed 2+ protein and in 2011, she had no proteinuria. In any event, she seems to have underlying diabetic nephropathy with superimposed acute kidney injury. 2. Congestive heart failure. Her volume status is certainly decompensated. She has been receiving IV fluid in view of radial contrast given. I am stopping her IV fluid and give her diuretic. She is receiving Lasix every eight hours, which will be continued and dose will be adjusted if needed. 3. Hypertension. She has been on hydralazine and carvedilol in addition to clonidine and diuretic. I am setting up hold parameters for her hydralazine and clonidine. I want her to not miss her diuretics. Medications will be adjusted as needed. Continue with diuresis for now. She is certainly not suitable for angiotensin converting enzyme (PORFIRIO) inhibitor or angiotensin receptor francia at this point due to acute kidney injury and advanced chronic kidney disease. 4. Anemia. Patient has significant anemia, which is probably related to iron deficiency, as her iron level is only 25 and saturation 9.3. Once she is more stable, then we will consider giving her intravenous iron infusion. At this point, there is no emergent need for a transfusion. 5. Morbid obesity and plan for bariatric surgery. Patient has advanced chronic kidney failure and is almost close to end-stage renal disease. I would not recommend bariatric surgery at this stage. Once she starts dialysis, then she can probably be cleared for bariatric surgery. Thank you for involving me in the care of Ms. Barone. I will follow her along with you.
[2020-10-26 22:00] VITALS: BP 175/76
[2020-10-27] MEDS: ACETAMINOPHEN TAB 650MG DOSE (2X325MG) PO PRN ×2 (01:03→16:55)
[2020-10-27 01:17] LABS: APPEARANCE, URINE CLEAR (CLEAR); BILIRUBIN, URINE AUTO NEGATIVE (NEGATIVE); BLOOD, URINE BLOOD NEGATIVE (NEGATIVE); COLOR, URINE STRAW (YELLOW); GLUCOSE, URINE (UA) AUTO 1+ mg/dL (NEGATIVE); KETONE, URINE AUTO NEGATIVE (NEGATIVE); LEUKOCYTE ESTERASE, URINE AUTO NEGATIVE (NEGATIVE); NITRITE, URINE AUTO NEGATIVE (NEGATIVE); PROTEIN, URINE AUTO 2+ mg/dL (NEGATIVE); SPECIFIC GRAVITY URINE AUTO 1.005 (1.002-1.035); UROBILINOGEN, URINE AUTO 0.2 mg/dL (0.0-2.0)
[2020-10-27 01:18] LABS: BACTERIA, URINE AUTO NEGATIVE (NEGATIVE); RBC, URINE AUTO 1 /HPF (0-3); SQUAMOUS EPITHELIAL CELL UR AU 0 /HPF (0-6); WBC, URINE AUTO 1 /HPF (0-3)
[2020-10-27] MEDS: FUROSEMIDE 40MG/4ML VIAL (J1940) IV SCH ×3 (05:31→21:23)
[2020-10-27] MEDS: HEPARIN SOD (PORCINE) 5000UNITS/ML 1ML VIAL/SYRINGE SQ SCH ×3 (05:31→21:23)
[2020-10-27 06:00] VITALS: BP 138/69
[2020-10-27 06:30] LABS: HEMATOCRIT 24.6 % (36.0-47.0); HEMOGLOBIN 7.6 g/dl (12.0-15.5); MEAN CORPUSCULAR HEMOGLOBIN 27.1 pg (27.0-33.0); MEAN CORPUSCULAR HGB CONC 30.9 g/dl (32.0-36.5); MEAN CORPUSCULAR VOLUME 87.9 fl (80.0-96.0); PLATELET COUNT, AUTOMATED 186 10^3/uL (150-450); WHITE BLOOD COUNT 7.1 10^3/uL (4.0-10.0)
[2020-10-27 07:13] LABS: CALCIUM LEVEL 8.3 MG/DL (8.8-10.2); CREATININE FOR GFR 2.68 MG/DL (0.55-1.30); FREE T4 1.17 NG/DL (0.76-1.46); MAGNESIUM LEVEL 2.3 MG/DL (1.8-2.4); PHOSPHORUS LEVEL 5.4 MG/DL (2.5-4.9); POTASSIUM SERUM 3.8 MEQ/L (3.5-5.1); THYROID STIMULATING HORMONE 1.57 uIU/ML (0.358-3.740)
[2020-10-27] MEDS: GABAPENTIN 300 MG CAP PO SCH ×4 (09:09→21:21)
[2020-10-27] MEDS: HumaLOG INSULIN (NovoLOG) PER UNIT SC SCH ×4 (09:09→21:00)
[2020-10-27] MEDS: LEVEMIR (INSULIN DETEMIR) 1 UNITS/0.01ML SC SCH ×2 (09:10→21:20)
[2020-10-27] MEDS: **hydrALAZINE HCL** 25 MG TAB PO SCH ×3 (09:10→21:22)
[2020-10-27 09:11] VITALS: O2SAT 93
[2020-10-27] MEDS: CARVedilol 12.5 MG TAB PO SCH ×2 (09:11→21:23)
[2020-10-27] MEDS: cloNIDine 0.2 MG TAB PO SCH ×2 (09:11→21:22)
[2020-10-27] MEDS: DULoxetine 30MG CAPSULE (CYMBALTA) PO SCH ×2 (09:12→21:22)
[2020-10-27] MEDS: SENOKOT S TAB PO SCH (09:15)
[2020-10-27] MEDS: MIRALAX *UNIT DOSE* 17GM PACKET PO SCH (09:19)
[2020-10-27 09:24] LABS: PERCENT SATURATION 13.1 % (13.2-45.0)
--- NOTE | 2020-10-27 13:27 | IPN ---
NEPHROLOGY PROGRESS NOTE DATE: 10/27/2020 SUBJECTIVE: Ms. Barone is seen this morning on her bedside. She is quite anxious to go home. She reports that her has an appointment with cardiology in [place] on October 31, 2020 and she wants to be home so she can travel with him. In the meantime, she reports that her constipation has improved and she had a good bowel movement. She denies any nausea, vomiting or abdominal pain. She has no chest pain and her dyspnea persists. She is using oxygen via nasal cannula. PHYSICAL EXAMINATION: VITAL SIGNS: Temperature 97.8 degrees Fahrenheit, heart rate 84 per minute, respiratory rate 18 per minute, blood pressure 135/70 mmHg, oxygen saturation 96% on 3 liters oxygen. HEAD: Atraumatic. NECK: Supple and jugular venous distention (JVD) mildly elevated. HEART SOUNDS: Regular. LUNGS: Slightly diminished breath sounds and a few basilar rales. ABDOMEN: Obese and nontender. Bowel sounds are normal. EXTREMITIES: Without any cyanosis or clubbing. She has lower extremity edema, which is at least 2+. LABORATORY DATA: Today's labs show WBC 7.1, hemoglobin 7.6, hematocrit 24.6. Sodium 140, potassium 3.8, BUN 37, creatinine 2.68, calcium 8.3, phosphorus 5.4. Iron level is 31 an saturation 13%. PROBLEMS: 1. Congestive heart failure. Volume status still decompensated. I would recommend to continue with intravenous (IV) diuretic. Her IV fluid has already been stopped. 2. Acute kidney injury superimposed on chronic kidney disease. Her kidney function is about the same. I have discussed with her at length and explained to her about advanced chronic kidney disease and potential need for dialysis. She does not wish dialysis at all. 3. Anemia. At present, her anemia is stable and, in fact, worsened today. She does have iron deficiency. She is likely to require transfusion.
[2020-10-27 14:00] VITALS: BP 137/67
--- NOTE | 2020-10-27 16:05 | IPNPDOC ---
Subjective Date Seen The patient was seen on 10/27/20. Subjective Chief Complaint/HPI Patient was seen and examined at bedside this morning. She was asking when she would be able to go home. She was explained she was still requiring oxygen supplementation, and her hemoglobin had decreased from 9.1 on admission to 7.6 and this required further work-up. She denied chest pain, abdominal pain, nausea, vomiting, problem with urination or bowel movements. She did report getting out of bed to eat breakfast on her chair and not feeling short of breath but she did not try to ambulate. Objective Physical Examination Other physical findings General: Lying in bed, no acute distress Head/Neck/Throat: Trachea midline, mucous membranes moist Eyes: Sclera anicteric, no erythema or discharge appreciated bilateral Thorax: On 3 L nasal cannula, lungs clear to auscultation bilaterally, no wheezes/rales/rhonchi Cardiovascular: Normal rate, regular rhythm, normal S1, S2; difficult to eliane reciate JVD, 2+ pitting edema in lower extremities bilateral. 2+ pedal pulses Abdomen: Bowel sounds present, soft/nontender/nondistended Genitourinary: No CVA tenderness, no Atkins in place Musculoskeletal: Moving all extremities Skin: Warm, dry Neurologic: AAOx3, speech fluent and goal-directed, no focal deficits, grossly intact Assessment /Plan Assessment #Acute on chronic diastolic heart failure -HFpEF last echocardiogram done on 07/12/20 noted LVEF of 65%, with grade 1 diastolic dysfunction. NYHA class IV. -Still a net positive fluid balance. -IV Furosemide 40mg q8. Daily weights. Monitor I/O. #Hypoxia -Require supplemental 02 to maintain O2 saturation. CTA of chest negative for PE. Low suspicion for PNA. Likely due to her heart failure. She also likely has underlying obesity hypoventilation syndrome and obstructive sleep apnea. -Titrate 02 for goal of 92-96%. #Acute on chronic kidney failure -Creatine in 07/30 was 2.36 mg/dL. Likely cardiorenal, continue with diuresis. -pt received contrast in the emergency room for cta, continue to monitor #Hypertensive emergency -Resolved. BP over 185 in addition to renal failure. -Resumed on home antihypertensives #Hypertension -continue with amlodipine, carvedilol, clonidine, and hydralazine. #CVA -w/ residual rt facial droop. Continue aspirin and statin therapy. 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 Presently NSR. #SHANA -being worked up as o/p not on cpap as of yet. #DVT PPX -heparin subq Plan/VTE VTE Prophylaxis Ordered?: Yes VS, I&O, 24H, Fishbone Vital Signs/I&O Vital Signs Date Time Temp Pulse Resp B/P (MAP) Pulse Ox O2 Delivery O2 Flow Rate FiO2 10/27/20 14:00 96.9 87 17 137/67 (90) 97 Nasal Cannula 3.0 I&O- Last 24 Hours up to 6 AM 10/27/20 05:59 Intake Total 900 ml Output Total 450 ml Balance 450 ml Laboratory Data 24H LABS Laboratory Tests 2 10/26/20 16:36: Bedside Glucose (Misc Panel) 183H 10/26/20 20:13: Bedside Glucose (Misc Panel) 191H 10/27/20 01:04: Urine Color STRAW, Urine Appearance CLEAR, Urine pH 5.0, Urine Specific [place] 1.005, Urine Protein 2+H, Urine Glucose (Auto)(UA) 1+H, Urine Ketones (Auto) NEGATIVE, Urine Blood NEGATIVE, Urine Nitrite NEGATIVE, Urine Bilirubin NEGATIVE, Urine Urobilinogen 0.2, Urine Leukocyte Esterase (Auto) NEGATIVE, Urine WBC (Auto) 1, Urine RBC (Auto) 1, Urine Hyaline Casts (Auto) 0, Urine Bacteria (Auto) NEGATIVE, Urine Squamous Epithelial Cells 0, Urine Sperm (Auto) 10/27/20 06:10: Nucleated Red Blood Cells % (auto) 0.0, Anion Gap 9, Glomerular Filtration Rate 19.0L, Calcium Level 8.3L, Phosphorus Level 5.4H, Magnesium Level 2.3, Iron Level 31L, Total Iron Binding Capacity 237L, Transferrin % Saturation 13.1L, Ferritin 107, Thyroid Stimulating Hormone (TSH) 1.570, Free Thyroxine 1.17 10/27/20 12:14: Bedside Glucose (Misc Panel) 196H CBC/BMP Laboratory Tests 10/27/20 06:10 Microbiology Microbiology 10/24/20 Blood Culture - Preliminary, Resulted No Growth after 48 hours. All Specime... 10/24/20 Blood Culture - Preliminary, Resulted No Growth after 48 hours. All Specime... ANABELL ZAPATA M.D. Oct 27, 2020 15:57
[2020-10-27 22:00] VITALS: BP 137/80
[2020-10-27 22:14] VITALS: O2SAT 95
[2020-10-28] VITALS (8 sets, daily range): BP systolic 138–148; BP diastolic 68–93; O2SAT 94–95
[2020-10-28] MEDS: ACETAMINOPHEN TAB 650MG DOSE (2X325MG) PO PRN ×2 (02:53→21:25)
[2020-10-28] MEDS: FUROSEMIDE 40MG/4ML VIAL (J1940) IV SCH ×3 (06:11→21:26)
[2020-10-28] MEDS: HEPARIN SOD (PORCINE) 5000UNITS/ML 1ML VIAL/SYRINGE SQ SCH ×3 (06:11→21:26)
[2020-10-28] MEDS: HumaLOG INSULIN (NovoLOG) PER UNIT SC SCH ×4 (08:03→21:00)
[2020-10-28] MEDS: **hydrALAZINE HCL** 25 MG TAB PO SCH ×3 (08:04→21:25)
[2020-10-28] MEDS: cloNIDine 0.2 MG TAB PO SCH ×2 (08:05→21:24)
[2020-10-28] MEDS: CARVedilol 12.5 MG TAB PO SCH ×2 (08:05→21:25)
[2020-10-28] MEDS: SENOKOT S TAB PO SCH (08:06)
[2020-10-28] MEDS: LEVEMIR (INSULIN DETEMIR) 1 UNITS/0.01ML SC SCH ×2 (08:06→22:01)
[2020-10-28] MEDS: GABAPENTIN 300 MG CAP PO SCH ×4 (08:06→21:24)
[2020-10-28] MEDS: DULoxetine 30MG CAPSULE (CYMBALTA) PO SCH ×2 (08:07→21:24)
[2020-10-28] MEDS: MIRALAX *UNIT DOSE* 17GM PACKET PO SCH (08:07)
[2020-10-28 09:50] LABS: HEMATOCRIT 28.4 % (36.0-47.0); HEMOGLOBIN 8.7 g/dl (12.0-15.5); MEAN CORPUSCULAR HEMOGLOBIN 26.9 pg (27.0-33.0); MEAN CORPUSCULAR HGB CONC 30.6 g/dl (32.0-36.5); MEAN CORPUSCULAR VOLUME 87.9 fl (80.0-96.0); PLATELET COUNT, AUTOMATED 205 10^3/uL (150-450); RED BLOOD COUNT 3.23 10^6/uL (4.00-5.40); WHITE BLOOD COUNT 8.1 10^3/uL (4.0-10.0)
[2020-10-28 10:22] LABS: ALBUMIN 2.9 GM/DL (3.2-5.2); CALCIUM LEVEL 9.1 MG/DL (8.8-10.2); CREATININE FOR GFR 2.76 MG/DL (0.55-1.30); GLOMERULAR FILTRATION RATE 18.4 (>45); PHOSPHORUS LEVEL 4.4 MG/DL (2.5-4.9)
--- NOTE | 2020-10-28 11:00 | IPNPDOC ---
Subjective Date Seen The patient was seen on 10/28/20. Subjective Chief Complaint/HPI Patient was seen and examined at bedside this morning. She wants to go home. She reports significant improvement in her breathing, but was on supplemental oxygenation. She was explained she would benefit from IV diuretics still. Objective Physical Examination Other physical findings General: Lying in bed, no acute distress Head/Neck/Throat: Trachea midline, mucous membranes moist Eyes: Sclera anicteric, no erythema or discharge appreciated bilaterally Thorax: On 2 L nasal cannula saturating at 92%, right basal crackles appreciated Cardiovascular: Normal rate, regular rhythm, normal S1, S2; 1+ lower extremity pitting edema Abdomen: Bowel sounds present, soft/nontender/nondistended Genitourinary: No CVA tenderness, no Atkins in place Musculoskeletal: Moving all extremities, no edema Skin: Warm, dry Neurologic: AAOx3, speech fluent and goal-directed, no focal deficits, grossly intact Assessment /Plan Assessment #Acute on chronic diastolic heart failure -HFpEF last echocardiogram done on 07/12/20 noted LVEF of 65%, with grade 1 diastolic dysfunction. NYHA class IV. -Still a net positive fluid balance and would benefit from ongoing Iv diuresis. -IV Furosemide 40mg q8. Daily weights. Monitor I/O. #Hypoxia -Require supplemental 02 to maintain O2 saturation. CTA of chest negative for PE. Low suspicion for PNA. Likely due to her heart failure. She also likely has underlying obesity hypoventilation syndrome and obstructive sleep apnea (she re ports this was being worked up as an outpatient). -Titrate 02 for goal of 92-96%. #Acute on chronic kidney failure -Creatine in 07/30 was 2.36 mg/dL. Likely cardiorenal, continue with diuresis. -pt received contrast in the emergency room for cta, continue to monitor #Hypertensive emergency -Resolved. -Resumed on home antihypertensives #Hypertension -continue with amlodipine, carvedilol, clonidine, and hydralazine. #CVA -w/ residual rt facial droop. Continue aspirin and statin therapy. #IDDM -Continue with basal coverage, sliding scale, accu-checks, and hypoglycemic protocol #Hx of SVT -Being worked up with her senior construction estimator; plan for loop recorder. Presently NSR. #SHANA -being worked up as o/p not on cpap as of yet. #DVT PPX -heparin subq Plan/VTE VTE Prophylaxis Ordered?: Yes VS, I&O, 24H, Fishbone Vital Signs/I&O Vital Signs Date Time Temp Pulse Resp B/P (MAP) Pulse Ox O2 Delivery O2 Flow Rate FiO2 10/28/20 08:05 79 127/63 10/28/20 06:00 97.3 18 94 Room Air 10/27/20 22:14 2.0 I&O- Last 24 Hours up to 6 AM 10/28/20 06:00 Intake Total 620 ml Output Total 1400 ml Balance -780 ml Laboratory Data 24H LABS Laboratory Tests 2 10/27/20 12:14: Bedside Glucose (Misc Panel) 196H 10/27/20 16:54: Bedside Glucose (Misc Panel) 153H 10/27/20 21:19: Bedside Glucose (Misc Panel) 175H 10/28/20 05:37: Bedside Glucose (Misc Panel) 120H 10/28/20 09:31: Nucleated Red Blood Cells % (auto) 0.0, Anion Gap 5L, Glomerular Filtration Rate 18.4L, Calcium Level 9.1, Phosphorus Level 4.4, Albumin 2.9L CBC/BMP Laboratory Tests 10/28/20 09:31 Microbiology Microbiology 10/27/20 Stool Occult Blood (CASI) - Final, Complete 10/24/20 Blood Culture - Preliminary, Resulted No Growth after 72 hours. All specime... 10/24/20 Blood Culture - Preliminary, Resulted No Growth after 72 hours. All specime... ANABELL ZAPATA M.D. Oct 28, 2020 11:00
--- NOTE | 2020-10-28 19:07 | IPN ---
PROGRESS NOTE DATE: 10/28/2020 SUBJECTIVE: Ms. Barone is seen this morning on her bedside. She is feeling about the same. She wants to go home. She denies any dyspnea, chest pain, nausea or vomiting. OBJECTIVE: On physical examination, temperature 97.3 degrees Fahrenheit, heart rate 88 per minute and expiration rate 18 per minute. Blood pressure 139/79 mmHg and oxygen saturation 94% on room air. Head is atraumatic. Neck supple and jugular venous distention (JVD) difficult to be assessed. Heart sounds are regular and lungs with bilateral basilar rales. Abdomen: Soft and nontender. Bowel sounds are normal. Extremities without any cyanosis or clubbing. Lower extremity edema is still 2+. Neurologically, she is awake, alert and oriented times three. LABORATORY DATA: Today's labs showed WBC count 8.1, hemoglobin 8.67 and hematocrit 28.4. Platelets 205. Today's chemistry showed sodium 139, potassium 4.0, Co2 32, BUN 36 and creatinine 2.76, glucose 117 and calcium 9.4. PROBLEMS: 1. Acute kidney injury superimposed on chronic kidney disease. No significant change. The patient seems to have pretty advanced underlying chronic kidney disease. I have explained to her and discussed with her. She does not ever wish to be on dialysis. She has no uremic symptoms at this point. She will follow up in the outpatient clinic. 2. Congestive heart failure. Her volume status still somewhat decompensated. She is furosemide 40 mg every 8 hours intravenously. Does not seem to be diuresing significantly. However, she was in negative fluid balance just about 1200 mL yesterday if her intake is recorded accurately. She has not been weighed today. 3. Anemia. Her anemia is stable and does not need any urgent intervention. I am going to order one dose of Injectafer 750 mg for her as yesterday her iron level is only 31 and saturation 13%. 4. Hypertension. Blood pressure seems very well controlled on current medications.
[2020-10-28] MEDS ORDERED: FERRIC CARBOXYMALTOSE INJ 750 MG, VIAL MATE ADAPTER 1 EACH in NS 250 ML IV ONE (20:00)
[2020-10-29] MEDS: HEPARIN SOD (PORCINE) 5000UNITS/ML 1ML VIAL/SYRINGE SQ SCH ×3 (05:18→21:49)
[2020-10-29] MEDS: FUROSEMIDE 40MG/4ML VIAL (J1940) IV SCH ×2 (05:18→16:37)
[2020-10-29 06:00] VITALS: BP 150/66
[2020-10-29 06:37] LABS: HEMATOCRIT 25.7 % (36.0-47.0); HEMOGLOBIN 7.9 g/dl (12.0-15.5); MEAN CORPUSCULAR HEMOGLOBIN 27.3 pg (27.0-33.0); MEAN CORPUSCULAR HGB CONC 30.7 g/dl (32.0-36.5); MEAN CORPUSCULAR VOLUME 88.9 fl (80.0-96.0); PLATELET COUNT, AUTOMATED 208 10^3/uL (150-450); RED BLOOD COUNT 2.89 10^6/uL (4.00-5.40); WHITE BLOOD COUNT 7.5 10^3/uL (4.0-10.0)
[2020-10-29 06:57] LABS: CALCIUM LEVEL 8.7 MG/DL (8.8-10.2); CREATININE FOR GFR 2.58 MG/DL (0.55-1.30); GLOMERULAR FILTRATION RATE 19.8 (>45); MAGNESIUM LEVEL 2.4 MG/DL (1.8-2.4); PHOSPHORUS LEVEL 4.2 MG/DL (2.5-4.9); POTASSIUM SERUM 3.8 MEQ/L (3.5-5.1)
[2020-10-29] MEDS: MIRALAX *UNIT DOSE* 17GM PACKET PO SCH (09:00)
[2020-10-29] MEDS: SENOKOT S TAB PO SCH (09:00)
[2020-10-29] MEDS: LEVEMIR (INSULIN DETEMIR) 1 UNITS/0.01ML SC SCH ×2 (09:28→21:49)
[2020-10-29] MEDS: HumaLOG INSULIN (NovoLOG) PER UNIT SC SCH ×4 (09:28→21:00)
[2020-10-29] MEDS: CARVedilol 12.5 MG TAB PO SCH ×2 (09:29→21:49)
[2020-10-29] MEDS: cloNIDine 0.2 MG TAB PO SCH ×2 (09:29→21:49)
[2020-10-29] MEDS: GABAPENTIN 300 MG CAP PO SCH ×2 (09:29→21:48)
[2020-10-29] MEDS: DULoxetine 30MG CAPSULE (CYMBALTA) PO SCH ×2 (09:30→21:48)
[2020-10-29] MEDS: **hydrALAZINE HCL** 25 MG TAB PO SCH ×3 (09:30→21:48)
[2020-10-29 11:25] LABS: FOLATE 13.7 NG/ML (>5.4)
[2020-10-29 14:00] VITALS: BP 140/64
--- NOTE | 2020-10-29 19:48 | IPNPDOC ---
Subjective Date Seen The patient was seen on 10/29/20. Subjective Chief Complaint/HPI Patient seen and examined at bedside this morning. She reports significant improvement in her breathing and was requesting to go home. She was educated about the treatment plan including benefit of IV diuretics for today, and potentially decreasing the dose to daily tomorrow which she would benefit from. She would then undergo a 6-minute walk test on 10/30 to see if she qualified for oxygen. She was in agreement and staying. He denies chest pain, abdominal pain, nausea, vomiting, problem with urination or bowel movements. Other systems General: Lying in bed, no acute distress Head/Neck/Throat: Trachea midline, mucous membranes moist Eyes: Sclera anicteric, no erythema or discharge appreciated bilaterally Thorax: On 2 L nasal cannula saturating at 93%, right basal crackles appreciated Cardiovascular: Normal rate, regular rhythm, normal S1, S2; 1+ lower extremity pitting edema Abdomen: Bowel sounds present, soft/nontender/nondistended Genitourinary: No CVA tenderness, no Atkins in place Musculoskeletal: Moving all extremities, no edema Skin: Warm, dry Neurologic: AAOx3, speech fluent and goal-directed, no focal deficits, grossly intact Objective Physical Examination Other physical findings General: Lying in bed, no acute distress Head/Neck/Throat: Trachea midline, mucous membranes moist Eyes: Sclera anicteric, no erythema or discharge appreciated bilaterally Thorax: On 2 L nasal cannula saturating at 93-94%, right basal crackles appreciated Cardiovascular: Normal rate, regular rhythm, normal S1, S2; 1+ lower extremity pitting edema Abdomen: Bowel sounds present, soft/nontender/nondistended Genitourinary: No CVA tenderness, no Atkins in place Musculoskeletal: Moving all extremities, no edema Skin: Warm, dry Neurologic: AAOx3, speech fluent and goal-directed, no focal deficits, grossly intact Assessment /Plan Assessment #Acute on chronic diastolic heart failure -HFpEF last echocardiogram done on 07/12/20 noted LVEF of 65%, with grade 1 diastolic dysfunction. NYHA class IV. -She is net negative. Unreliable bed weight scale. -IV Furosemide 40mg q8 to change to daily starting 10/31. Daily weights. Monitor I/O. #Hypoxia -Require supplemental 02 to maintain O2 saturation. CTA of chest negative for PE. Low suspicion for PNA. Likely due to her heart failure. She also likely has underlying obesity hypoventilation syndrome and obstructive sleep apnea (she reports this was being worked up as an outpatient). -Titrate 02 for goal of 92-96%. -6-minute walk test planned for 10/30 #Acute on chronic kidney failure -Creatine in 07/30 was 2.36 mg/dL. She likely has chronic kidney disease secondary to her hypertension and underlying diabetes. Exacerbated now by likely cardiorenal syndrome and received contrast in the emergency room department. -Continue with IV diuretics. Nephrology team following. #Normocytic anemia -Iron panel consistent with anemia of chronic disease. She has a low vitamin B12 level. We will begin supplementation. She will need outpatient follow-up for her vitamin B12. #Hypertensive emergency -Resolved. -Resumed on home antihypertensives #Hypertension -continue with amlodipine, carvedilol, clonidine, and hydralazine. #CVA -w/ residual rt facial droop. Continue aspirin and statin therapy. 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 Presently NSR. #SHANA -being worked up as o/p not on cpap as of yet. #DVT PPX -heparin subq Plan/VTE VTE Prophylaxis Ordered?: No VS, I&O, 24H, Fishbone Vital Signs/I&O Vital Signs Date Time Temp Pulse Resp B/P (MAP) Pulse Ox O2 Delivery O2 Flow Rate FiO2 10/29/20 16:35 140/65 10/29/20 14:00 97.6 83 14 92 Room Air 10/29/20 08:00 2.0 I&O- Last 24 Hours up to 6 AM 10/29/20 06:00 Intake Total 480 ml Output Total 1700 ml Balance -1220 ml Laboratory Data 24H LABS Laboratory Tests 2 10/28/20 21:38: Bedside Glucose (Misc Panel) 222H 10/29/20 04:54: Bedside Glucose (Misc Panel) 163H 10/29/20 05:30: Nucleated Red Blood Cells % (auto) 0.0, Anion Gap 3L, Glomerular Filtration Rate 19.8L, Calcium Level 8.7L, Phosphorus Level 4.2, Magnesium Level 2.4 10/29/20 11:35: Bedside Glucose (Misc Panel) 143H 10/29/20 16:30: Bedside Glucose (Misc Panel) 137H CBC/BMP Laboratory Tests 10/29/20 05:30 Microbiology Microbiology 10/27/20 Stool Occult Blood (CASI) - Final, Complete 10/24/20 Blood Culture - Preliminary, Resulted No Growth after 72 hours. All specime... 10/24/20 Blood Culture - Preliminary, Resulted No Growth after 72 hours. All specime... ANABELL ZAPATA M.D. Oct 29, 2020 19:45
[2020-10-29 21:00] VITALS: O2SAT 95
[2020-10-29] MEDS: CYANOCOBALAMIN 500 MCG TAB PO SCH (21:44)
--- NOTE | 2020-10-29 21:44 | IPNPDOC ---
Subjective CC/HPI The patient is a 65-year-old female admitted with a reason for visit of Chf Exacerbation. Events since last encounter Not happy in the hospital. She wants to sign out AMA. Edema and SOB is improving. General: Denies: ROS Unobtainable, Chills, Night Sweats, Fatigue, Malaise, Normal Appetite, Other Symptoms Constitutional: Denies: Chills, Fever, Malaise, Night Sweats, Weakness, F atigue, Weight Loss, Lethargy, Other Eyes: Denies: Pain, Vision change, Conjunctivae inflammation, Eyelid inflammation, Redness, Other ENT: Denies: Head Aches, Ear Pain, Dysphagia, Sinus Congestion, Post Nasal Drip, Sore Throat, Epistaxis, Other Symptoms Skin: Denies: Rash, Lesions, Jaundice, Bruising, Itching, Dry, Breakdown, Nail Changes, Other Pulmonary: Reports: Dyspnea Cardiovascular: Reports: Orthopnea Gastrointestinal: Denies: Nausea, Vomiting, Abdominal Pain, Diarrhea, Constipation, Melena, Hematochezia, Other Symptoms Genitourinary: Denies: Dysuria, Frequency, Incontinence, Hematuria, Retention, Other Symptoms Hematologic: Denies: Bruising, Bleeding Excessively, Petecchia, Purpura, Enlarged Lymph Nodes, Other Hematologic Endocrine: Denies: Polydipsia, Polyphagia, Polyuria, Heat Intolerance, Cold Intolerance, Other Endocrine Sx Musculoskeletal: Reports: Joint Pain Neurological: Reports: Weakness, Other Symptoms (Twitching) Psych: Reports: Anger Objective Physical Examination General Exam: Alert, Other (Morbidly obese) EYE EXAM: PERRLA, EOMI ENT EXAM: Atraumatic, Mucous membr. moist/pink Neck Exam: Supple, JVD Chest Exam: Normal air movement, Other (Decrease air entry at bases) Heart Exam: Rate Normal, Normal S1, Normal S2 ABDOMEN EXAM: Normal bowel sounds, Soft; No: Tenderness Extremity Exam: Edema (Bilateral edema 2+); No: Clubbing Skin Exam: Nl turgor and temperature; No: Rash Neuro Exam: Normal Speech, Strength at 5/5 X4 ext, Other (flapping tremors) Psych Exam: Mental status NL, Oriented x 3 Vital Signs/I&O Vital Signs Date Time Temp Pulse Resp B/P (MAP) Pulse Ox O2 Delivery O2 Flow Rate FiO2 10/29/20 16:35 140/65 10/29/20 14:00 97.6 83 14 92 Room Air 10/29/20 08:00 2.0 I&O- Last 24 Hours up to 6 AM 10/29/20 06:00 Intake Total 480 ml Output Total 1700 ml Balance -1220 ml Laboratory Data Labs 24H Laboratory Tests 2 10/29/20 04:54: Bedside Glucose (Misc Panel) 163H 10/29/20 05:30: Nucleated Red Blood Cells % (auto) 0.0, Anion Gap 3L, Glomerular Filtration Rate 19.8L, Calcium Level 8.7L, Phosphorus Level 4.2, Magnesium Level 2.4 10/29/20 11:35: Bedside Glucose (Misc Panel) 143H 10/29/20 16:30: Bedside Glucose (Misc Panel) 137H 10/29/20 21:14: Bedside Glucose (Misc Panel) 194H CBC/BMP Laboratory Tests 10/29/20 05:30 FSBS Laboratory Tests Test 10/29/20 04:54 10/29/20 11:35 10/29/20 16:30 10/29/20 21:14 Range/Units Bedside Glucose (Misc Panel) 163 143 137 194 80-115 MG/DL Current Medications Current Medications Medications (Trade) Dose Ordered Sig/Osito Route PRN Reason Start Time Stop Time Status Last Admin Dose Admin Acetaminophen (Tylenol Tab) 650 mg Q4H PRN PO MILD PAIN or TEMP > 101 10/24/20 21:15 10/28/20 21:25 Acetaminophen/ Codeine Phosphate (Tylenol/Codeine #3 Tablet) 1 ea QHS PRN PO MODERATE PAIN (PS 5-7) 10/24/20 23:50 10/25/20 06:16 Al Hydrox/Mg Hydrox/Simethicone (Mylanta) 30 ml DAILY PRN PO DYSPEPSIA 10/24/20 21:15 Albuterol/ Ipratropium (Duoneb (Ipr 0.5mg/Alb 2.5mg)) 3 ml Q20M NEB 10/24/20 21:05 10/24/20 21:46 DC 10/24/20 21:05 Amlodipine Besylate (Norvasc) 5 mg DAILY PO 10/25/20 09:00 10/26/20 11:17 DC 10/26/20 09:15 Carvedilol (COReg) 25 mg BID PO 10/25/20 03:00 10/29/20 09:29 Carvedilol (COReg) 25 mg BID PO 10/25/20 09:00 10/25/20 02:59 DC Clonidine HCl (Catapres) 0.2 mg BID PO 10/24/20 21:00 10/29/20 09:29 Clonidine HCl (Catapres) 0.2 mg BID PO 10/25/20 09:00 10/24/20 23:52 DC Cyanocobalamin (Vitamin B12) 1,000 mcg DAILY PO 10/29/20 09:00 Dextrose (Dextrose 50%) 25 ml ASDIRECTED PRN IV SEE LABEL COMMENTS 10/24/20 21:15 Diphenhydramine HCl (Benadryl) 50 mg STAT STAT IV 10/24/20 17:08 10/24/20 17:09 DC 10/24/20 17:31 Duloxetine HCl (Cymbalta) 60 mg BID PO 10/24/20 23:50 10/29/20 09:30 Enoxaparin Sodium (Lovenox) 40 mg DAILY SC 10/25/20 09:00 10/24/20 23:50 DC Furosemide (LASIX injection) 40 mg DAILY IV 10/30/20 09:00 Furosemide (LASIX injection) 40 mg Q12H IV 10/25/20 20:00 10/25/20 11:38 DC Furosemide (LASIX injection) 40 mg Q4H IV 10/25/20 00:00 10/25/20 11:19 DC 10/25/20 09:00 Furosemide (LASIX injection) 40 mg Q8H IV 10/25/20 14:00 10/29/20 19:35 DC 10/29/20 16:37 Gabapentin (Neurontin) 300 mg BID PO 10/29/20 21:00 Gabapentin (Neurontin) 600 mg QID PO 10/24/20 23:50 10/29/20 12:24 DC 10/29/20 09:29 Glucagon (Glucagon) 1 mg ASDIRECTED PRN SC SEE LABEL COMMENTS 10/24/20 21:15 Glucose (Glucose) 16 GM ASDIRECTED PRN PO SEE LABEL COMMENTS 10/24/20 21:15 Heparin Sodium (Porcine) (Heparin) 5,000 units Q8H SQ 10/25/20 06:00 10/29/20 05:18 Home Med (Home Med List Complete!) ASDIRECTED XX 10/24/20 23:05 10/24/20 23:14 DC Hydralazine HCl (Apresoline) 25 mg TID PO 10/24/20 23:50 10/29/20 16:35 Insulin Detemir (Levemir Insulin) 40 units BID SC 10/24/20 23:50 10/29/20 09:28 Insulin Human Lispro (HumaLOG INSULIN) See Protocol Table AC SC 10/25/20 07:30 10/29/20 16:37 Insulin Human Lispro (HumaLOG INSULIN) See Protocol Table QHS IA 10/24/20 21:00 Magnesium Hydroxide (Milk Of Magnesia) 30 ml DAILY PRN PO CONSTIPATION 10/24/20 21:15 10/27/20 08:56 DC Polyethylene Glycol (Miralax) 1 pkt DAILY PO 10/27/20 09:00 10/27/20 09:19 Senna/Docusate Sodium (Senokot S) 1 tab DAILY PO 10/27/20 09:00 10/27/20 09:15 Sodium Chloride 1,000 ml @ 65 mls/hr [id number] IV 10/25/20 11:30 10/26/20 11:17 DC 10/26/20 04:25 Allergies Coded Allergies: Sulfa (Sulfonamide Antibiotics) (Verified Allergy, Unknown, 10/31/18) atropine (Verified Allergy, Unknown, 10/31/18) Contrast Media (Verified Adverse Reaction, Mild, VOMITING, 10/24/20) Assessment/Plan Date Seen The patient was seen on 10/29/20 at 21:38. Plan / VTE VTE Prophylaxis Ordered?: Yes Plan Orders past 48 Hours Orders Occult Blood Stool Specimen (10/27/20 21:30) Fingerstick Blood Sugar (10/28/20 05:37) Renal Profile (10/28/20 08:55) Complete Blood Count (10/28/20 08:55) Basic Metabolic Profile (10/29/20 06:00) Complete Blood Count (10/29/20 06:00) Phosphorous Level (10/29/20 06:00) Magnesium Level (10/29/20 06:00) Fingerstick Blood Sugar (10/28/20 11:31) Fingerstick Blood Sugar (10/28/20 16:24) Ferric Carboxymaltose Inj (Injectafer).. (10/28/20 20:00) Fingerstick Blood Sugar (10/28/20 21:38) Fingerstick Blood Sugar (10/29/20 04:54) Fingerstick Blood Sugar (10/29/20 11:35) Gabapentin (Neurontin) (10/29/20 21:00) Arrange Follow Up With: (10/29/20 12:24) Ct W/ Intravenous Contrast Consent (10/29/20 15:11) Fingerstick Blood Sugar (10/29/20 16:30) Furosemide Injection (Lasix Injection) (10/30/20 09:00) Ambulate With O2 (10/30/20 06:00) Basic Metabolic Profile (10/30/20 06:00) Magnesium Level (10/30/20 06:00) Phosphorous Level (10/30/20 06:00) Complete Blood Count (10/30/20 06:00) Cyanocobalamin (Vitamin B12) (10/29/20 09:00) Fingerstick Blood Sugar (10/29/20 21:14) Plan Text Decompensated HFpEF, grade 1 diastolic dysfunction PATRICK on CKD4 Morbid obesity Iron def anemia Twitching Decrease the Gabapentin dose, s/p IV injectafer, cont PO iron. Cont IV diuretic. Dose decreased by hospitalist. Need to follow up with Nephrology after discharge. MAC WELLER MD Oct 29, 2020 21:44
[2020-10-29 22:00] VITALS: BP 176/81
[2020-10-29] MEDS: ACETAMINOPHEN TAB 650MG DOSE (2X325MG) PO PRN (22:59)
[2020-10-30] MEDS: HEPARIN SOD (PORCINE) 5000UNITS/ML 1ML VIAL/SYRINGE SQ SCH ×2 (05:45→14:00)
[2020-10-30 06:00] VITALS: BP 155/73
[2020-10-30 06:14] LABS: HEMATOCRIT 28.8 % (36.0-47.0); HEMOGLOBIN 8.7 g/dl (12.0-15.5); MEAN CORPUSCULAR HEMOGLOBIN 26.9 pg (27.0-33.0); MEAN CORPUSCULAR HGB CONC 30.2 g/dl (32.0-36.5); MEAN CORPUSCULAR VOLUME 88.9 fl (80.0-96.0); PLATELET COUNT, AUTOMATED 242 10^3/uL (150-450); RED BLOOD COUNT 3.24 10^6/uL (4.00-5.40); WHITE BLOOD COUNT 8.5 10^3/uL (4.0-10.0)
[2020-10-30 06:34] LABS: CREATININE FOR GFR 2.62 MG/DL (0.55-1.30); GLOMERULAR FILTRATION RATE 19.5 (>45); MAGNESIUM LEVEL 2.4 MG/DL (1.8-2.4); POTASSIUM SERUM 3.6 MEQ/L (3.5-5.1)
[2020-10-30] MEDS: MIRALAX *UNIT DOSE* 17GM PACKET PO SCH ×2 (08:43→08:55)
[2020-10-30] MEDS: DULoxetine 30MG CAPSULE (CYMBALTA) PO SCH (08:48)
[2020-10-30] MEDS: SENOKOT S TAB PO SCH ×2 (08:48→08:56)
[2020-10-30] MEDS: cloNIDine 0.2 MG TAB PO SCH (08:49)
[2020-10-30] MEDS: CYANOCOBALAMIN 500 MCG TAB PO SCH (08:49)
[2020-10-30] MEDS: GABAPENTIN 300 MG CAP PO SCH (08:49)
[2020-10-30] MEDS: CARVedilol 12.5 MG TAB PO SCH (08:50)
[2020-10-30] MEDS: LEVEMIR (INSULIN DETEMIR) 1 UNITS/0.01ML SC SCH (08:51)
[2020-10-30] MEDS: **hydrALAZINE HCL** 25 MG TAB PO SCH ×2 (08:51→16:14)
[2020-10-30] MEDS: HumaLOG INSULIN (NovoLOG) PER UNIT SC SCH ×2 (08:52→14:01)
[2020-10-30] MEDS: ACETAMINOPHEN TAB 650MG DOSE (2X325MG) PO PRN (08:57)
[2020-10-30] MEDS ORDERED: FUROSEMIDE 40MG/4ML VIAL (J1940) IV SCH (09:00)
[2020-10-30 09:30] VITALS: O2SAT 84
[2020-10-30 09:50] VITALS: O2SAT 90
[2020-10-30] MEDS ORDERED: VITA500T40 PO (11:45)
--- NOTE | 2020-10-30 11:46 | DS.PDOC ---
Discharge Summary General Date of Admission Oct 24, 2020 at 21:12 Date of Discharge 10/30/20 Discharge Summary DISCHARGE DIAGNOSES: 1. CHF exacerbation 2. Normocytic anemia 3. Hypoxia 4. Acute on chronic kidney disease 5. Pulmonary nodule COMPLICATIONS/CHIEF COMPLAINT: Chf Exacerbation. HOSPITAL COURSE: Ms. Barone, is a 65-year-old female with a past medical history of congestive heart failure with a preserved ejection fraction, essential hypertension, diabetes mellitus with neuropathy, hyperlipidemia, obstructive sleep apnea (currently being worked up), and anxiety presented to the emergency room department at [facility] on 10/24/2020 with complaints of shortness of breath and reported when she checked her pulse ox at home she desaturated into the 70s. On the day of admission, she was noted to have leukocytosis, normocytic anemia on CBC. On chemistry she was noted to have acute on chronic kidney disease with an elevated BNP. A chest x-ray showed findings consistent with interstitial edema. She was admitted to the medicine team for treatment of CHF exacerbation. She was started on IV diuretics and was successfully diuresed with a net negative balance. There was a significant improvement in her breathing. CT angiogram of the chest was negative for pulmonary embolism. She continued to require oxygen. This is likely also due to her underlying possible obstructive sleep apnea as well as obesity hypoventilation syndrome. She underwent a 6- minute walk test on the day of discharge and qualified for oxygen. Therefore this was set up for her. She reported she was once on oxygen but for some reason stopped using it. She was encouraged to continue with her outpatient evaluation for her sleep apnea, and possibly be fitted for a CPAP vs BPAP. Of note, her toresomide dose was recently increased. However, she was not educated about appropriate diet which may have led to this exacerbation. She is now well aware to check her weight and how to measure the amount of fluids she should be in taking at home. At the time of discharge, we will continue with her recently adjusted diuretic dose. She will need to follow-up with her primary care physician and/your analytical lab technician upon discharge During hospitalization, she was followed by the nephrology team for her acute on chronic kidney disease. At the time of discharge her creatinine was 2.62 Mg/dL. She was explained she most likely has chronic kidney disease secondary to hypertension and diabetes. She is to follow-up with the nephrology team (Dr. Stark) upon discharge at which time she will also have repeat chemistry done to ensure her renal function is stable. She was noted to have normocytic anemia. Iron studies were consistent with anemia of chronic disease. However, she was noted to have low B12 levels therefore was started on supplementation. She is to have a repeat blood work done including vitamin B12 levels; and ongoing management of her anemia with her primary care physician. Of note, on CTA she was noted to have a 7 mm pulmonary nodule. She was instructed to have a repeat CT chest in 3-6 months. Please note gabapentin was decreased due to renal function. DISCHARGE MEDICATIONS: Please see below. ALLERGIES: Please see below. PHYSICAL EXAMINATION ON DISCHARGE: VITAL SIGNS: Please see below. General: Lying in bed, no acute distress Head/Neck/Throat: Trachea midline, mucous membranes moist Eyes: Sclera anicteric, no erythema or discharge appreciated bilaterally Thorax: Saturating at 92 to 94% on 2 L nasal cannula, lungs clear to auscultatio n bilaterally, there are no wheezes or crackles appreciated Cardiovascular: Normal rate, regular rhythm, normal S1, S2, lower extremity edema has significantly improved Abdomen: Bowel sounds present, soft/nontender/nondistended Genitourinary: No CVA tenderness, no Atkins in place Musculoskeletal: Moving all extremities, no edema Skin: Warm, dry Neurologic: AAOx3, speech fluent and goal-directed, no focal deficits, grossly intact LABORATORY DATA: Please see below. IMAGING: CT ANGIO CHEST FINDINGS: Pulmonary arteries: There are no pulmonary emboli. Aorta: There is mild atherosclerosis in the thoracic aorta. There is no aortic dissection or aneurysm. Lungs: Bilateral geographic ground-glass opacities demonstrated in the mid and upper lung zones associated with smooth septal thickening consistent with interstitial edema. Possibility of multifocal pneumonitis to be excluded clinically. Bibasilar infiltrates likely atelectatic. Clinical correlation to exclude infection suggested. Noncalcified pulmonary parenchymal nodules on the right measure up to 7 mm. Pleural spaces: Small bilateral pleural effusions. Heart: There is mild atherosclerotic calcification of the coronary arteries. Cardiomegaly. Lymph nodes: Unremarkable. No enlarged lymph nodes. Bones/joints: Unremarkable. No acute fracture. Soft tissues: Unremarkable. IMPRESSION: 1. Bilateral geographic ground-glass opacities demonstrated in the mid and upper lung zones associated with smooth septal thickening consistent with interstitial edema. Possibility of multifocal pneumonitis to be excluded clinically. 2. Bibasilar infiltrates likely atelectatic. Clinical correlation to exclude basilar infection suggested. 3. Small bilateral pleural effusions. 4. Noncalcified pulmonary parenchymal nodules on the right measure up to 7 mm. For patients at low risk (minimal or absent history of smoking and of other known risk factors), recommend CT Chest at 3-6 months, then consider CT Chest at 18-24 months. For patients at high risk (history of smoking or of other known risk factors), recommend CT Chest at 3-6 months, then CT Chest at 18-24 months. (Reference: [facility]) 5. There is no aortic dissection or aneurysm. 6. Cardiomegaly. 7. There are no pulmonary emboli. RENAL US FINDINGS: Kidneys are normal in contour, size, echogenicity, and reniform shape. No hydronephrosis, nephrolithiasis, cystic or renal mass lesion. Right kidney conchita sures 9.8 x 5.7 x 5.2 cm. Left kidney measures 10.2 x 4.0 x 4.4 cm. PROGNOSIS: Good ACTIVITY: [As tolerated]. DIET: Fluid restricted diet of 1500 cc, low-sodium diet DISPOSITION: Home with home O2 DISCHARGE INSTRUCTIONS: 1. Patient is to follow-up with her primary care physician within 5 days. She should have repeat blood work done including CBC and chemistries to ensure her hemoglobin and renal function as well as other electrolytes are within normal limits 2. Follow-up with nephrology within 10 to 14 days 3. Follow-up with cardiology within 10 to 14 days DISCHARGE CONDITION: Stable TIME SPENT ON DISCHARGE: 30 minutes. Vital Signs/I&Os Vital Signs Date Time Temp Pulse Resp B/P (MAP) Pulse Ox O2 Delivery O2 Flow Rate FiO2 10/30/20 09:50 90 Nasal Cannula 1.0 10/30/20 08:51 158/74 10/30/20 08:50 84 10/30/20 06:00 97.5 17 I&O- Last 24 Hours up to 6 AM 10/30/20 06:00 Intake Total 610 ml Output Total 500 ml Balance 110 ml Laboratory Data Labs 24H Laboratory Tests 2 10/29/20 16:30: Bedside Glucose (Misc Panel) 137H 10/29/20 21:14: Bedside Glucose (Misc Panel) 194H 10/30/20 05:47: Nucleated Red Blood Cells % (auto) 0.0, Anion Gap 5L, Glomerular Filtration Rate 19.5L, Calcium Level 9.0, Phosphorus Level 4.0, Magnesium Level 2.4 CBC/BMP Laboratory Tests 10/30/20 05:47 FSBS Laboratory Tests Test 10/29/20 16:30 10/29/20 21:14 Range/Units Bedside Glucose (Misc Panel) 137 194 80-115 MG/DL Microbiology Microbiology 10/27/20 Stool Occult Blood (CASI) - Final, Complete 10/24/20 Blood Culture - Final, Complete NO GROWTH AFTER 5 DAYS 10/24/20 Blood Culture - Final, Complete NO GROWTH AFTER 5 DAYS Discharge Medications Scheduled Amlodipine Besylate (Amlodipine Besylate) 5 Mg Tablet, 5 MG PO DAILY, (Reported) Carvedilol (Carvedilol) 12.5 Mg Tablet, 25 MG PO BID, (Reported) Clonidine HCl (Clonidine HCl) 0.1 Mg Tablet, 0.2 MG PO BID, (Reported) Cyanocobalamin (Vitamin B-12) (Vitamin B-12) 500 Mcg Tablet, 1,000 MCG PO DAILY Dulaglutide (Trulicity) 1.5 Mg/0.5 Ml Pen.injctr, 1.5 MG SC QWEEK, (Reported) FRIDAYS Duloxetine Hcl (Duloxetine HCl) 60 Mg Capsule.dr, 60 MG PO BID, (Reported) Folic Acid/Multivit-Min/Lutein (Multi-Vitamin Gummies) 1 Each Tab.chew, 2 CHW PO DAILY, (Reported) Gabapentin (Gabapentin) 600 Mg Tablet, 600 MG PO BID, (Reported) Hydralazine HCl (Hydralazine HCl) 25 Mg Tab, 25 MG PO TID, (Reported) Insulin Glargine,Hum.rec.anlog (Basaglar Kwikpen U-100) 100 Unit/1 Ml Insuln.pen, 60 UNIT SC BID, (Reported) Torsemide (Torsemide) 20 Mg Tablet, 40 MG PO BID, (Reported) Scheduled PRN Acetaminophen (Tylenol Extra Strength) 500 Mg Tablet, 1,000 MG PO Q6H PRN for PAIN LEVEL 1-5, (Reported) Acetaminophen with Codeine (Acetaminophen-Cod #3 Tablet) 1 Each Tablet, 1 TAB PO QHS PRN for MODERATE PAIN (PS 5-7), (Reported) Allergies Coded Allergies: Sulfa (Sulfonamide Antibiotics) (Verified Allergy, Unknown, 10/31/18) atropine (Verified Allergy, Unknown, 10/31/18) Contrast Media (Verified Adverse Reaction, Mild, VOMITING, 10/24/20) ANABELL ZAPATA M.D. Oct 30, 2020 11:43
--- NOTE | 2020-10-30 12:50 | IPNPDOC ---
Subjective CC/HPI The patient is a 65-year-old female admitted with a reason for visit of Chf Exacerbation. Events since last encounter Feels a lot better today. She is sitting in sofa. Diuretic was decreased yesterday. She still c/o twitching. General: Reports: Fatigue; Denies: Chills, Night Sweats Constitutional: Reports: Malaise; Denies: Chills, Fever Eyes: Denies: Pain, Vision change, Conjunctivae inflammation, Eyelid inflammation, Redness, Other ENT: Denies: Head Aches, Ear Pain, Dysphagia, Sinus Congestion, Post Nasal Drip, Sore Throat, Epistaxis, Other Symptoms Skin: Denies: Rash, Lesions, Jaundice, Bruising, Itching, Dry, Breakdown, Nail Changes, Other Pulmonary: Denies: Dyspnea, Cough, Pleuritic Chest Pain, Other Symptoms Cardiovascular: Denies: Chest Pain, Palpitations, Orthopnea, Paroxysmal Noc. Dyspnea, Edema, Lt Headedness, Other Symptoms Gastrointestinal: Denies: Nausea, Vomiting, Abdominal Pain, Diarrhea, Constipation, Melena, Hematochezia, Other Symptoms Genitourinary: Denies: Dysuria, Frequency, Incontinence, Hematuria, Retention, Other Symptoms Hematologic: Denies: Bruising, Bleeding Excessively, Petecchia, Purpura, Enlarged Lymph Nodes, Other Hematologic Musculoskeletal: Denies: Neck Pain, Back Pain, Shoulder Pain, Arm Pain, Hand Pain, Leg Pain, Foot Pain, Joint Pain, Muscle Pain, Spasms, Other Symptoms Neurological: Reports: Weakness Psych: Reports: Mood Normal Objective Physical Examination General Exam: Alert, No Acute Distress, Other (Morbidly obese) EYE EXAM: PERRLA, EOMI ENT EXAM: Atraumatic, Mucous membr. moist/pink Neck Exam: Supple Chest Exam: Normal air movement, Other (Decrease air entry at bases) Heart Exam: Rate Normal, Normal S1, Normal S2 ABDOMEN EXAM: Normal bowel sounds, Soft; No: Tenderness Extremity Exam: Edema (Bilateral edema trace); No: Clubbing Skin Exam: Nl turgor and temperature; No: Rash Neuro Exam: Normal Speech, Strength at 5/5 X4 ext, Other (flapping tremors) Psych Exam: Mental status NL, Oriented x 3 Vital Signs/I&O Vital Signs Date Time Temp Pulse Resp B/P (MAP) Pulse Ox O2 Delivery O2 Flow Rate FiO2 10/30/20 09:50 90 Nasal Cannula 1.0 10/30/20 08:51 158/74 10/30/20 08:50 84 10/30/20 06:00 97.5 17 I&O- Last 24 Hours up to 6 AM 10/30/20 06:00 Intake Total 610 ml Output Total 500 ml Balance 110 ml Laboratory Data Labs 24H Laboratory Tests 2 10/29/20 16:30: Bedside Glucose (Misc Panel) 137H 10/29/20 21:14: Bedside Glucose (Misc Panel) 194H 10/30/20 05:47: Nucleated Red Blood Cells % (auto) 0.0, Anion Gap 5L, Glomerular Filtration Rate 19.5L, Calcium Level 9.0, Phosphorus Level 4.0, Magnesium Level 2.4 10/30/20 12:01: Bedside Glucose (Misc Panel) 214H CBC/BMP Laboratory Tests 10/30/20 05:47 FSBS Laboratory Tests Test 10/29/20 16:30 10/29/20 21:14 10/30/20 12:01 Range/Units Bedside Glucose (Misc Panel) 137 194 214 80-115 MG/DL Current Medications Current Medications Medications (Trade) Dose Ordered Sig/Osito Route PRN Reason Start Time Stop Time Status Last Admin Dose Admin Acetaminophen (Tylenol Tab) 650 mg Q4H PRN PO MILD PAIN or TEMP > 101 10/24/20 21:15 10/30/20 08:57 Acetaminophen/ Codeine Phosphate (Tylenol/Codeine #3 Tablet) 1 ea QHS PRN PO MODERATE PAIN (PS 5-7) 10/24/20 23:50 10/25/20 06:16 Al Hydrox/Mg Hydrox/Simethicone (Mylanta) 30 ml DAILY PRN PO DYSPEPSIA 10/24/20 21:15 Albuterol/ Ipratropium (Duoneb (Ipr 0.5mg/Alb 2.5mg)) 3 ml Q20M NEB 10/24/20 21:05 10/24/20 21:46 DC 10/24/20 21:05 Amlodipine Besylate (Norvasc) 5 mg DAILY PO 10/25/20 09:00 10/26/20 11:17 DC 10/26/20 09:15 Carvedilol (COReg) 25 mg BID PO 10/25/20 03:00 10/30/20 08:50 Carvedilol (COReg) 25 mg BID PO 10/25/20 09:00 10/25/20 02:59 DC Clonidine HCl (Catapres) 0.2 mg BID PO 10/24/20 21:00 10/30/20 08:49 Clonidine HCl (Catapres) 0.2 mg BID PO 10/25/20 09:00 10/24/20 23:52 DC Cyanocobalamin (Vitamin B12) 1,000 mcg DAILY PO 10/29/20 09:00 10/30/20 08:49 Dextrose (Dextrose 50%) 25 ml ASDIRECTED PRN IV SEE LABEL COMMENTS 10/24/20 21:15 Diphenhydramine HCl (Benadryl) 50 mg STAT STAT IV 10/24/20 17:08 10/24/20 17:09 DC 10/24/20 17:31 Duloxetine HCl (Cymbalta) 60 mg BID PO 10/24/20 23:50 10/30/20 08:48 Enoxaparin Sodium (Lovenox) 40 mg DAILY SC 10/25/20 09:00 10/24/20 23:50 DC Furosemide (LASIX injection) 40 mg DAILY IV 10/30/20 09:00 10/30/20 11:20 DC 10/30/20 08:48 Furosemide (LASIX injection) 40 mg Q12H IV 10/25/20 20:00 10/25/20 11:38 DC Furosemide (LASIX injection) 40 mg Q4H IV 10/25/20 00:00 10/25/20 11:19 DC 10/25/20 09:00 Furosemide (LASIX injection) 40 mg Q8H IV 10/25/20 14:00 10/29/20 19:35 DC 10/29/20 16:37 Gabapentin (Neurontin) 300 mg BID PO 10/29/20 21:00 10/30/20 08:49 Gabapentin (Neurontin) 600 mg QID PO 10/24/20 23:50 10/29/20 12:24 DC 10/29/20 09:29 Glucagon (Glucagon) 1 mg ASDIRECTED PRN SC SEE LABEL COMMENTS 10/24/20 21:15 Glucose (Glucose) 16 GM ASDIRECTED PRN PO SEE LABEL COMMENTS 10/24/20 21:15 Heparin Sodium (Porcine) (Heparin) 5,000 units Q8H SQ 10/25/20 06:00 10/30/20 05:45 Home Med (Home Med List Complete!) ASDIRECTED XX 10/24/20 23:05 10/24/20 23:14 DC Hydralazine HCl (Apresoline) 25 mg TID PO 10/24/20 23:50 10/30/20 08:51 Insulin Detemir (Levemir Insulin) 40 units BID SC 10/24/20 23:50 10/30/20 08:51 Insulin Human Lispro (HumaLOG INSULIN) See Protocol Table AC SC 10/25/20 07:30 10/30/20 08:52 Insulin Human Lispro (HumaLOG INSULIN) See Protocol Table QHS TN 10/24/20 21:00 Magnesium Hydroxide (Milk Of Magnesia) 30 ml DAILY PRN PO CONSTIPATION 10/24/20 21:15 10/27/20 08:56 DC Polyethylene Glycol (Miralax) 1 pkt DAILY PO 10/27/20 09:00 10/27/20 09:19 Senna/Docusate Sodium (Senokot S) 1 tab DAILY PO 10/27/20 09:00 10/27/20 09:15 Sodium Chloride 1,000 ml @ 65 mls/hr [id number] IV 10/25/20 11:30 10/26/20 11:17 DC 10/26/20 04:25 Torsemide (Demadex) 40 mg QAM PO 10/31/20 09:00 Allergies Coded Allergies: Sulfa (Sulfonamide Antibiotics) (Verified Allergy, Unknown, 10/31/18) atropine (Verified Allergy, Unknown, 10/31/18) Contrast Media (Verified Adverse Reaction, Mild, VOMITING, 10/24/20) Assessment/Plan Date Seen The patient was seen on 10/30/20 at 12:47. Plan / VTE VTE Prophylaxis Ordered?: Yes Plan Orders past 48 Hours Orders Fingerstick Blood Sugar (10/28/20 16:24) Ferric Carboxymaltose Inj (Injectafer).. (10/28/20 20:00) Fingerstick Blood Sugar (10/28/20 21:38) Fingerstick Blood Sugar (10/29/20 04:54) Fingerstick Blood Sugar (10/29/20 11:35) Gabapentin (Neurontin) (10/29/20 21:00) Arrange Follow Up With: (10/29/20 12:24) Ct W/ Intravenous Contrast Consent (10/29/20 15:11) Fingerstick Blood Sugar (10/29/20 16:30) Furosemide Injection (Lasix Injection) (10/30/20 09:00) Ambulate With O2 (10/30/20 06:00) Basic Metabolic Profile (10/30/20 06:00) Magnesium Level (10/30/20 06:00) Phosphorous Level (10/30/20 06:00) Complete Blood Count (10/30/20 06:00) Cyanocobalamin (Vitamin B12) (10/29/20 09:00) Fingerstick Blood Sugar (10/29/20 21:14) Torsemide (Demadex) (10/31/20 09:00) Discharge/Transfer Order (10/30/20 11:43) Patient Discharge Instruction (10/30/20 11:43) Fingerstick Blood Sugar (10/30/20 12:01) * Nursing Order * (10/30/20 12:39) Plan Text HFpEF, grade 1 diastolic dysfunction PATRICK on CKD4 Morbid obesity Iron def anemia Twitching Metabolic alkalosis Decreased the Gabapentin dose yesterday,Hb improving s/p IV injectafer, cont PO iron. Start torsemide 40 mg daily from tomorrow onwards. Need to follow up with Nephrology after discharge. Further diuretic dose adjustment as outpatient MAC WELLER MD Oct 30, 2020 12:50
[2020-10-30 16:14] VITALS: BP 152/71
[2020-10-31] MEDS ORDERED: TORSEMIDE 20 MG TAB PO SCH (09:00)
== END 2020-10-30 16:45 | disposition home or self-care (01) | DRG 291 ==
LOC: M ED 12:57 → M ED INP 21:12 → ENRESERV 10-25 13:46 → M MSPAV 10-25 15:21
PROVIDERS: ADMIT Internal Medicine; ATTEND Internal Medicine
DX: I13.0 Hypertensive heart and chronic kidney disease with heart failure and stage 1 through stage 4 chronic kidney disease, or unspecified chronic kidney disease (principal); I50.33 Acute on chronic diastolic (congestive) heart failure; N18.4 Chronic kidney disease, stage 4 (severe); N25.81 Secondary hyperparathyroidism of renal origin; N17.9 Acute kidney failure, unspecified; I16.1 Hypertensive emergency; Z68.41 Body mass index [BMI] 40.0-44.9, adult; E66.2 Morbid (severe) obesity with alveolar hypoventilation; E11.42 Type 2 diabetes mellitus with diabetic polyneuropathy; I48.0 Paroxysmal atrial fibrillation; E78.5 Hyperlipidemia, unspecified; R09.02 Hypoxemia; K59.00 Constipation, unspecified; R91.1 Solitary pulmonary nodule; M21.371 Foot drop, right foot; E53.8 Deficiency of other specified B group vitamins; I69.398 Other sequelae of cerebral infarction; F32.9 Major depressive disorder, single episode, unspecified; D63.1 Anemia in chronic kidney disease; F41.9 Anxiety disorder, unspecified; D50.9 Iron deficiency anemia, unspecified; E11.22 Type 2 diabetes mellitus with diabetic chronic kidney disease; G43.909 Migraine, unspecified, not intractable, without status migrainosus; I69.392 Facial weakness following cerebral infarction; E55.9 Vitamin D deficiency, unspecified; K64.8 Other hemorrhoids; Z90.49 Acquired absence of other specified parts of digestive tract; Z79.4 Long term (current) use of insulin; Z79.899 Other long term (current) drug therapy; Z88.2 Allergy status to sulfonamides; Z88.8 Allergy status to other drugs, medicaments and biological substances; Z91.041 Radiographic dye allergy status; Z20.822 Contact with and (suspected) exposure to COVID-19

== ENCOUNTER → 2020-11-12 | Outpatient (CLI) | payer MEDICARE ==
[~2020-11-12] MED LIST changes: +ACET-897 PO; +MULTCHW12 PO; +TRUL0.5I SC; +VITA500T40 PO
[2020-11-12 14:02] LABS: HEMATOCRIT 30.7 % (36.0-47.0); HEMOGLOBIN 9.4 g/dl (12.0-15.5); MEAN CORPUSCULAR HEMOGLOBIN 27.5 pg (27.0-33.0); MEAN CORPUSCULAR HGB CONC 30.6 g/dl (32.0-36.5); MEAN CORPUSCULAR VOLUME 89.8 fl (80.0-96.0); PLATELET COUNT, AUTOMATED 217 10^3/uL (150-450); RED BLOOD COUNT 3.42 10^6/uL (4.00-5.40); WHITE BLOOD COUNT 6.1 10^3/uL (4.0-10.0)
[2020-11-12 14:49] LABS: ALBUMIN 3.4 GM/DL (3.2-5.2); BILIRUBIN,TOTAL 0.3 MG/DL (0.2-1.0); CALCIUM LEVEL 9.4 MG/DL (8.8-10.2); CREATININE FOR GFR 2.47 MG/DL (0.55-1.30); GLOMERULAR FILTRATION RATE 20.9 (>45); POTASSIUM SERUM 3.9 MEQ/L (3.5-5.1); TOTAL 25(OH) VITAMIN D 17.1 NG/ML (30.0-100.0); TOTAL PROTEIN 6.6 GM/DL (6.4-8.2)
[2020-11-12 15:19] LABS: HEMOGLOBIN A1c 7.7 %
== END ==
LOC: M PLALAB 08:27
PROVIDERS: ATTEND Nurse Practitioner Adult Health
DX: E11.49 Type 2 diabetes mellitus with other diabetic neurological complication (principal); I50.30 Unspecified diastolic (congestive) heart failure; E55.9 Vitamin D deficiency, unspecified

== ENCOUNTER → 2020-12-04 | Outpatient (CLI) | payer MEDICARE ==
--- NOTE | 2020-12-05 17:08 | SLEEPCENT ---
DATE: 12/04/2020 ORDERED BY: Genevieve Townsend Nocturnal polysomnography was performed for the titration of pressure therapy in this patient with obstructive sleep apnea syndrome, apnea-hypopnea index 15.7. For testing, patient was fit with a ResMed F301 full-face mask of standard size. There was 4 cm of water pressure applied to the circuit, and the lights were extinguished. There was 8 hours and 33 minutes of data reviewed. There was 446.5 minutes of sleep identified. Sleep latency was prolonged at 32 minutes. REM latency was prolonged at 363 minutes. Sleep architecture did improve, though sleep progression was poor until late in the study, where there was only one REM cycles. Overall sleep efficiency was 88.2%. The electrocardiogram showed a sinus rhythm with an average heart rate of 85 beats per minute. EEG showed normal waveforms for wake and sleep. Persistence of respiratory hypopneic events prompted increases in pressure. Emergence of central and mixed apneas was then seen. Titration was confounded by persistent oxygen desaturations despite pressure therapy. In retrospective review, best sleep was seen on a CPAP pressure of 7. Despite reasonable reduction in obstructive respiratory events, oxygen desaturations were persistent. There was also some activity noted in the limb leads on this occasion. Limb movement arousal index was 1.9. IMPRESSION: Obstructive sleep apnea syndrome (G47.33). RECOMMENDATION: Nightly use of pressure therapy at 7 cm of water is recommended based on these findings. Given the persistence of oxygen desaturation, close followup and perhaps supplemental oxygen in addition to pressure therapy will be necessary.
== END ==
LOC: M SLEEP 20:00
PROVIDERS: ATTEND Nurse Practitioner Family
DX: G47.33 Obstructive sleep apnea (adult) (pediatric) (principal)

== ENCOUNTER → 2020-12-11 | Outpatient (CLI) | payer MEDICARE | LOC: M PLALAB 08:32 | PROVIDERS: ATTEND Surgery | DX: Z86.39 Personal history of other endocrine, nutritional and metabolic disease (principal) ==

== ENCOUNTER → 2021-01-16 | Outpatient (CLI) | payer MEDICARE ==
[2021-01-16 16:01] LABS: CALCIUM LEVEL 8.7 MG/DL (8.8-10.2); CREATININE FOR GFR 2.29 MG/DL (0.55-1.30); GLOMERULAR FILTRATION RATE 22.8 (>45); MAGNESIUM LEVEL 2.1 MG/DL (1.8-2.4); POTASSIUM SERUM 3.4 MEQ/L (3.5-5.1)
== END ==
LOC: M PLALAB 12:20
PROVIDERS: ATTEND Physician Assistant
DX: I50.32 Chronic diastolic (congestive) heart failure (principal)

== ENCOUNTER → 2021-04-23 | Outpatient (REF) | payer MEDICARE ==
[~2021-04-23] MED LIST changes: +TIZA10TA; -TIZA4TAB4
[2021-04-23 18:11] LABS: PERCENT SATURATION 14.3 % (13.2-45.0)
== END ==
LOC: M LAB REF 16:53
PROVIDERS: ATTEND Internal Medicine Nephrology
DX: D50.9 Iron deficiency anemia, unspecified (principal)

== ENCOUNTER → 2021-08-22 | Outpatient (CLI) | payer MEDICARE ==
[~2021-08-22] MED LIST changes: -ACET1TAB16 PO; +ACET300T48 PO
[2021-08-22 10:49] LABS: HEMOGLOBIN 9.7 g/dl (12.0-15.5); MEAN CORPUSCULAR HEMOGLOBIN 27.6 pg (27.0-33.0); MEAN CORPUSCULAR HGB CONC 31.3 g/dl (32.0-36.5); MEAN CORPUSCULAR VOLUME 88.1 fl (80.0-96.0); PLATELET COUNT, AUTOMATED 231 10^3/uL (150-450); RED BLOOD COUNT 3.52 10^6/uL (4.00-5.40); WHITE BLOOD COUNT 8.3 10^3/uL (4.0-10.0)
[2021-08-22 11:41] LABS: ALBUMIN 3.1 GM/DL (3.2-5.2); BILIRUBIN,TOTAL 0.3 MG/DL (0.2-1.0); CALCIUM LEVEL 8.9 MG/DL (8.8-10.2); CHOLESTEROL RISK RATIO 5.605 (<5); CREATININE FOR GFR 2.69 MG/DL (0.55-1.30); GLOMERULAR FILTRATION RATE 18.8 (>45); PERCENT SATURATION 18.3 % (13.2-45.0); POTASSIUM SERUM 4.8 MEQ/L (3.5-5.1); THYROID STIMULATING HORMONE 2.16 uIU/ML (0.358-3.740); TOTAL PROTEIN 6.2 GM/DL (6.4-8.2)
[2021-08-22 11:43] LABS: HEMOGLOBIN A1c 6.8 %
[2021-08-22 12:39] LABS: TOTAL 25(OH) VITAMIN D 43.2 NG/ML (30.0-100.0)
[2021-08-22 12:40] LABS: FOLATE 10.5 NG/ML
== END ==
LOC: M PLALAB 09:03
PROVIDERS: ATTEND Nurse Practitioner Adult Health
DX: G62.9 Polyneuropathy, unspecified (principal); D50.9 Iron deficiency anemia, unspecified; E07.9 Disorder of thyroid, unspecified; E78.00 Pure hypercholesterolemia, unspecified

== ENCOUNTER 2021-10-29 21:54 | Emergency (ER) | payer MEDICARE ==
[2021-10-29] MEDS ORDERED: FUROSEMIDE 40MG/4ML VIAL (J1940) IV ONE (22:25)
[2021-10-29 22:37] LABS: BASO # 0.1 10^3/uL (0.0-0.2); BASO % 0.3 % (0.0-1.0); EOS # 0.8 10^3/uL (0.0-0.5); EOS % 3.4 % (0.0-3.0); HEMATOCRIT 36.3 % (36.0-47.0); HEMOGLOBIN 10.9 g/dl (12.0-15.5); LYMPH # 4.6 10^3/uL (1.5-5.0); LYMPH % 20.6 % (24.0-44.0); MEAN CORPUSCULAR HEMOGLOBIN 27.5 pg (27.0-33.0); MEAN CORPUSCULAR VOLUME 91.4 fl (80.0-96.0); MONO # 1.4 10^3/uL (0.0-0.8); MONO % 6.4 % (2.0-8.0); NEUTROPHILS # 15.3 10^3/uL (1.5-8.5); NEUTROPHILS % 68.2 % (36.0-66.0); PLATELET COUNT, AUTOMATED 504 10^3/uL (150-450); RED BLOOD COUNT 3.97 10^6/uL (4.00-5.40); WHITE BLOOD COUNT 22.4 10^3/uL (4.0-10.0)
[2021-10-29 22:50] LABS: ABG BASE EXCESS -9.8 (-2.0-2.0); ABG HCO3 16.7 MEQ/L (22.0-26.0); ABG PARTIAL PRESSURE CO2 38.5 mmHg (35.0-45.0); ABG PARTIAL PRESSURE O2 250.9 mmHg (75.0-100.0); ABG STANDARD HCO3 16.6 MEQ/L (22.0-26.0); ABG TOTAL CO2 17.8 MEQ/L (23.0-31.0); ABG pH (ARTERIAL) 7.254 UNITS (7.350-7.450)
[2021-10-29 22:52] LABS: INR 0.95; PROTHROMBIN TIME 13.1 SECONDS (12.7-14.5)
[2021-10-29 22:53] LABS: PARTIAL THROMBOPLASTIN TIME 30.1 SECONDS (25.9-37.0)
[2021-10-29 23:21] LABS: CALCIUM LEVEL 9.2 MG/DL (8.8-10.2); CREATININE FOR GFR 2.99 MG/DL (0.55-1.30); GLOMERULAR FILTRATION RATE 16.7 (>45); POTASSIUM SERUM 4.9 MEQ/L (3.5-5.1); THYROID STIMULATING HORMONE 10.1 uIU/ML (0.358-3.740)
[2021-10-29 23:22] LABS: RSV AMPLIFICATION NEGATIVE (NEGATIVE)
[2021-10-29 23:38] LABS: CK-MB VALUE MASS 5.2 NG/ML (<3.6); MB/CK RELATIVE INDEX 6.5 (< OR =4)
[2021-10-29] MEDS ORDERED: hydrALAZINE 20MG/ML 1ML VIAL (J0360 PER 20MG) IV STA (23:45)
[2021-10-29] MEDS ORDERED: ONDANSETRON 4MG 2ML VIAL IV ONE (23:45)
[2021-10-29 23:56] VITALS: BP 213/96
[2021-10-30 01:03] VITALS: BP 187/84
== END 2021-10-30 01:05 | disposition short-term general hospital (02) ==
LOC: M ED 21:54
DX: I21.A1 Myocardial infarction type 2 (principal); J81.0 Acute pulmonary edema; J96.01 Acute respiratory failure with hypoxia; N18.4 Chronic kidney disease, stage 4 (severe); I11.0 Hypertensive heart disease with heart failure; I50.9 Heart failure, unspecified; J44.9 Chronic obstructive pulmonary disease, unspecified; E78.5 Hyperlipidemia, unspecified; I48.91 Unspecified atrial fibrillation; F32.A Depression, unspecified; F41.9 Anxiety disorder, unspecified; I69.351 Hemiplegia and hemiparesis following cerebral infarction affecting right dominant side; Z98.84 Bariatric surgery status; Z88.1 Allergy status to other antibiotic agents; Z88.2 Allergy status to sulfonamides; Z88.8 Allergy status to other drugs, medicaments and biological substances; Z91.041 Radiographic dye allergy status
CPT/HCPCS: 36600; 71045; 80048; 82550; 82553; 82803; 83880; 84443; 84484; 85025; 85610; 85730; 87631; 93005; 93041; 94660; 94760; 96374; 96375; 99291; 99292; J0360; J1940; J2405

== ENCOUNTER → 2021-12-24 | Outpatient (REF) | payer MEDICARE | LOC: M LAB REF 17:18 | PROVIDERS: ATTEND Internal Medicine Nephrology | DX: N39.0 Urinary tract infection, site not specified (principal) ==

== ENCOUNTER → 2022-02-27 | Outpatient (REF) | payer MEDICARE ==
[2022-02-27 18:55] LABS: PERCENT SATURATION 14.8 % (13.2-45.0)
== END ==
LOC: M LAB REF 17:09
PROVIDERS: ATTEND Internal Medicine Nephrology
DX: D50.9 Iron deficiency anemia, unspecified (principal)

== ENCOUNTER 2022-03-03 11:26 | Inpatient (IN) | payer MEDICARE ==
[~2022-03-03] VITALS: Ht 147.3 cm; Wt 74.5 kg
[2022-03-03] MEDS ORDERED: CLOP75TA2 (11:34)
[2022-03-03 11:54] LABS: VENOUS BASE EXCESS -6.3 (-2.0-2.0); VENOUS O2 SATURATION 74.7 % (60.0-80.0); VENOUS PARTIAL PRESSURE CO2 50.1 mmHg (38.0-50.0); VENOUS PARTIAL PRESSURE O2 45.1 mmHg (30.0-50.0); VENOUS STANDARD HCO3 18.9 MEQ/L; VENOUS TOTAL CO2 22.5 MEQ/L (24.0-28.0)
[2022-03-03 12:02] LABS: BASO # 0.1 10^3/uL (0.0-0.2); BASO % 0.3 % (0.0-1.0); EOS # 0.3 10^3/uL (0.0-0.5); EOS % 1.7 % (0.0-3.0); HEMATOCRIT 29.3 % (36.0-47.0); HEMOGLOBIN 8.5 g/dl (12.0-15.5); LYMPH # 1.1 10^3/uL (1.5-5.0); MEAN CORPUSCULAR HEMOGLOBIN 27.3 pg (27.0-33.0); MEAN CORPUSCULAR VOLUME 94.2 fl (80.0-96.0); MONO % 5.2 % (2.0-8.0); NEUTROPHILS # 15.8 10^3/uL (1.5-8.5); NEUTROPHILS % 85.9 % (36.0-66.0); PLATELET COUNT, AUTOMATED 259 10^3/uL (150-450); RED BLOOD COUNT 3.11 10^6/uL (4.00-5.40); WHITE BLOOD COUNT 18.4 10^3/uL (4.0-10.0)
[2022-03-03 12:28] LABS: CK-MB VALUE MASS 1.6 NG/ML (<3.6)
[2022-03-03 12:31] LABS: ALBUMIN 3.2 G/DL (3.2-5.2); BILIRUBIN,DIRECT 0.2 MG/DL (<0.4); BILIRUBIN,TOTAL 0.4 MG/DL (0.3-1.2); CALCIUM LEVEL 8.6 MG/DL (8.3-10.6); CREATININE FOR GFR 3.16 MG/DL (0.55-1.30); GLOMERULAR FILTRATION RATE 15.7 (>45); POTASSIUM SERUM 4.4 MMOL/L (3.5-5.1); TOTAL PROTEIN 6.2 G/DL (5.7-8.2)
[2022-03-03] MEDS ORDERED: FUROSEMIDE 100MG/10ML VIAL IV ONE (14:15)
[2022-03-03] MEDS ORDERED: NITROGLYCERIN 2% OINT 1 GM *U/D* PKT TOP ONE (14:15)
[2022-03-03] MEDS ORDERED: cefTRIAXone SOD 2 GM in D5W MINI-BAG PLUS 50 ML IV ONE (15:00)
[2022-03-03] MEDS ORDERED: BRIL90TA PO (15:08)
[2022-03-03] MEDS ORDERED: BASA100I SC (15:09)
[2022-03-03] MEDS ORDERED: ASPI81CH48 PO (15:14)
[2022-03-03] MEDS ORDERED: FERR1TAB8 PO (15:14)
[2022-03-03 15:19] LABS: RSV AMPLIFICATION NEGATIVE (NEGATIVE)
[2022-03-03] MEDS ORDERED: VITMTA PO (15:19)
[2022-03-03] MEDS ORDERED: ATOR80TA59 PO (15:22)
[2022-03-03] MEDS ORDERED: HOME MED LIST COMPLETE! XX SCH (15:25)
[2022-03-03] MEDS ORDERED: AZITHROMYCIN INJ 500 MG, VIAL MATE ADAPTER 1 EACH in NS 250 ML IV ONE (16:00)
[2022-03-03] MEDS ORDERED: ACETAMINOPHEN 500 MG TAB PO PRN (16:40)
[2022-03-03] MEDS ORDERED: BUMETANIDE 1MG/4ML VIAL IV SCH (17:00)
[2022-03-03] MEDS ORDERED: GLUCOSE 4GM CHEW TABLET PO PRN (17:20)
[2022-03-03] MEDS ORDERED: GLUCAGON INJ 1MG VIAL SC PRN (17:20)
[2022-03-03] MEDS ORDERED: DEXTROSE 50% 50ML SYRINGE IV PRN (17:20)
[2022-03-03 18:19] VITALS: BP 147/72
[2022-03-03] MEDS: INSULIN LISPRO (NovoLOG) PER UNIT SC SCH ×2 (18:36→20:26)
[2022-03-03 20:00] VITALS: BP 152/73
[2022-03-03] MEDS: IPRATROPIUM 0.5MG/ALBUTEROL 2.5MG INH SOL UD 3ML (DUONEB) NEB SCH (20:20)
[2022-03-03] MEDS: LEVEMIR (INSULIN DETEMIR) 1 UNITS/0.01ML SC SCH (20:26)
[2022-03-03] MEDS: DULoxetine 30MG CAPSULE (CYMBALTA) PO SCH (21:45)
[2022-03-03] MEDS: ASPIRIN 81MG CHEW TABLET PO SCH (21:45)
[2022-03-03] MEDS: HEPARIN SOD (PORCINE) 5000UNITS/ML 1ML VIAL/SYRINGE SQ SCH (21:45)
[2022-03-03] MEDS: **hydrALAZINE HCL** 25 MG TAB PO SCH (21:45)
[2022-03-03] MEDS: ATORVASTATIN 20 MG TAB PO SCH (21:45)
[2022-03-04] VITALS (7 sets, daily range): BP systolic 125–157; BP diastolic 58–73
[2022-03-04] MEDS: IPRATROPIUM 0.5MG/ALBUTEROL 2.5MG INH SOL UD 3ML (DUONEB) NEB SCH ×4 (01:14→19:30)
[2022-03-04] MEDS: cloNIDine 0.1MG TABLET PO SCH ×2 (01:34→13:47)
[2022-03-04 04:24] LABS: HEMATOCRIT 24.8 % (36.0-47.0); HEMOGLOBIN 7.5 g/dl (12.0-15.5); MEAN CORPUSCULAR HEMOGLOBIN 27.9 pg (27.0-33.0); MEAN CORPUSCULAR HGB CONC 30.2 g/dl (32.0-36.5); MEAN CORPUSCULAR VOLUME 92.2 fl (80.0-96.0); PLATELET COUNT, AUTOMATED 251 10^3/uL (150-450); RED BLOOD COUNT 2.69 10^6/uL (4.00-5.40); WHITE BLOOD COUNT 11.1 10^3/uL (4.0-10.0)
[2022-03-04 04:50] LABS: BLOOD UREA NITROGEN 42 MG/DL (9-23); CALCIUM LEVEL 8.5 MG/DL (8.3-10.6); CARBON DIOXIDE LEVEL 22 MMOL/L (20-31); CHLORIDE LEVEL 107 MMOL/L (98-107); CREATININE FOR GFR 3.15 MG/DL (0.55-1.30); GLOMERULAR FILTRATION RATE 15.7 (>45); GLUCOSE, FASTING 137 MG/DL (74-106); SODIUM LEVEL 139 MMOL/L (136-145)
[2022-03-04] MEDS: HEPARIN SOD (PORCINE) 5000UNITS/ML 1ML VIAL/SYRINGE SQ SCH ×3 (05:07→20:55)
[2022-03-04] MEDS: INSULIN LISPRO (NovoLOG) PER UNIT SC SCH ×4 (07:30→20:50)
[2022-03-04 08:25] LABS: IRON (FE) 38 UG/DL (50-170); PERCENT SATURATION 15.8 % (13.2-45.0); TOTAL IRON BINDING CAPACITY 240 UG/DL (250-425)
[2022-03-04 08:27] LABS: FERRITIN 74.7 NG/ML (7.3-270.7)
[2022-03-04 08:28] LABS: FOLATE 17.2 NG/ML (>5.4); VITAMIN B12 LEVEL > 2000 PG/ML (211-911)
[2022-03-04] MEDS ORDERED: BUMETANIDE 1MG/4ML VIAL IV SCH (09:00)
[2022-03-04] MEDS: LEVEMIR (INSULIN DETEMIR) 1 UNITS/0.01ML SC SCH ×2 (09:10→20:54)
[2022-03-04] MEDS: DULoxetine 30MG CAPSULE (CYMBALTA) PO SCH ×2 (09:11→20:55)
[2022-03-04] MEDS: GABAPENTIN 300 MG CAP PO SCH ×2 (09:11→20:55)
[2022-03-04] MEDS: FERROUS SULFATE 325MG TAB PO SCH (09:11)
[2022-03-04] MEDS: ASPIRIN 81MG CHEW TABLET PO SCH ×2 (09:11→20:55)
[2022-03-04] MEDS: MULTIVITAMINS/MINERALS THERAP 1 TAB PO SCH (09:11)
[2022-03-04] MEDS: **hydrALAZINE HCL** 25 MG TAB PO SCH ×2 (09:12→20:55)
[2022-03-04] MEDS: amLODIPine 5 MG TAB PO SCH (09:12)
[2022-03-04] MEDS: FUROSEMIDE 100MG/10ML VIAL IV SCH (17:29)
[2022-03-04] MEDS: ATORVASTATIN 20 MG TAB PO SCH (20:55)
[2022-03-05] MEDS: IPRATROPIUM 0.5MG/ALBUTEROL 2.5MG INH SOL UD 3ML (DUONEB) NEB SCH ×3 (01:09→13:38)
[2022-03-05 03:58] LABS: HEMATOCRIT 24.3 % (36.0-47.0); HEMOGLOBIN 7.3 g/dl (12.0-15.5); MEAN CORPUSCULAR HEMOGLOBIN 27.8 pg (27.0-33.0); MEAN CORPUSCULAR VOLUME 92.4 fl (80.0-96.0); PLATELET COUNT, AUTOMATED 232 10^3/uL (150-450); RED BLOOD COUNT 2.63 10^6/uL (4.00-5.40)
[2022-03-05 04:00] VITALS: BP 134/62
[2022-03-05 04:20] LABS: CALCIUM LEVEL 8.8 MG/DL (8.3-10.6); CREATININE FOR GFR 3.23 MG/DL (0.55-1.30); GLOMERULAR FILTRATION RATE 15.3 (>45); POTASSIUM SERUM 3.9 MMOL/L (3.5-5.1)
[2022-03-05] MEDS: HEPARIN SOD (PORCINE) 5000UNITS/ML 1ML VIAL/SYRINGE SQ SCH ×2 (05:20→13:36)
[2022-03-05] MEDS: INSULIN LISPRO (NovoLOG) PER UNIT SC SCH ×2 (07:30→12:01)
[2022-03-05 07:48] VITALS: BP 143/67
[2022-03-05] MEDS: FUROSEMIDE 100MG/10ML VIAL IV SCH (08:31)
[2022-03-05] MEDS: ASPIRIN 81MG CHEW TABLET PO SCH (08:31)
[2022-03-05] MEDS: MULTIVITAMINS/MINERALS THERAP 1 TAB PO SCH (08:31)
[2022-03-05] MEDS: GABAPENTIN 300 MG CAP PO SCH (08:32)
[2022-03-05] MEDS: amLODIPine 5 MG TAB PO SCH (08:32)
[2022-03-05] MEDS: **hydrALAZINE HCL** 25 MG TAB PO SCH (08:32)
[2022-03-05] MEDS: DULoxetine 30MG CAPSULE (CYMBALTA) PO SCH (08:32)
[2022-03-05] MEDS: FERROUS SULFATE 325MG TAB PO SCH (08:32)
[2022-03-05] MEDS: LEVEMIR (INSULIN DETEMIR) 1 UNITS/0.01ML SC SCH (09:00)
[2022-03-05] MEDS ORDERED: DARBEPOETIN 100MCG/0.5ML *NON-DIALYSIS* SYRINGE SC ONE (12:00)
[2022-03-05] MEDS ORDERED: FERRIC CARBOXYMALTOSE INJ 750 MG, VIAL MATE ADAPTER 1 EACH in NS 250 ML IV ONE (13:00)
[2022-03-05 13:38] VITALS: BP 145/66
[2022-03-05] MEDS: cloNIDine 0.1MG TABLET PO SCH ×2 (13:38)
[2022-03-05] MEDS ORDERED: GABA-282 PO (14:36)
[2022-03-05] MEDS ORDERED: BASA100I SC ×2 (14:36)
[2022-03-05] MEDS ORDERED: METO25TA PO (16:20)
[2022-03-06] MEDS ORDERED: TORSEMIDE (DEMADEX) 50 MG PER 1/2 TAB PO SCH (09:00)
== END 2022-03-05 17:00 | disposition home health service (06) | DRG 291 ==
LOC: M ED 11:26 → M ED INP 16:38 → ENRESERV 17:23 → M PCU 18:19
PROVIDERS: ADMIT Student in an Organized Health Care Education/Training Program; ATTEND Internal Medicine Nephrology
PROC: B246ZZZ Ultrasonography of Right and Left Heart (ICD-10-PCS; principal; 2022-03-04)
DX: I13.0 Hypertensive heart and chronic kidney disease with heart failure and stage 1 through stage 4 chronic kidney disease, or unspecified chronic kidney disease (principal); J96.01 Acute respiratory failure with hypoxia; I50.43 Acute on chronic combined systolic (congestive) and diastolic (congestive) heart failure; N18.4 Chronic kidney disease, stage 4 (severe); I69.351 Hemiplegia and hemiparesis following cerebral infarction affecting right dominant side; I25.10 Atherosclerotic heart disease of native coronary artery without angina pectoris; I25.2 Old myocardial infarction; E11.22 Type 2 diabetes mellitus with diabetic chronic kidney disease; E11.42 Type 2 diabetes mellitus with diabetic polyneuropathy; F41.9 Anxiety disorder, unspecified; D63.1 Anemia in chronic kidney disease; Z88.2 Allergy status to sulfonamides; Z88.8 Allergy status to other drugs, medicaments and biological substances; I25.5 Ischemic cardiomyopathy; G47.33 Obstructive sleep apnea (adult) (pediatric); I48.0 Paroxysmal atrial fibrillation; F32.A Depression, unspecified; M21.371 Foot drop, right foot; R32 Unspecified urinary incontinence; E53.8 Deficiency of other specified B group vitamins; Z79.4 Long term (current) use of insulin; Z98.84 Bariatric surgery status; Z79.899 Other long term (current) drug therapy; Z79.82 Long term (current) use of aspirin; Z91.041 Radiographic dye allergy status

== ENCOUNTER 2022-03-13 13:47 | Outpatient (CLI) | payer MEDICARE ==
[~2022-03-13] VITALS: Ht 147.3 cm; Wt 78.3 kg
[~2022-03-13 13:47] MED LIST changes: +ALBUTEROL SULFATE 2.5MG/0.5ML INH NEB SOLN INH PRN; +ASPI81CH48 PO; +ATOR80TA59 PO; +BRIL90TA PO; +CLOP75TA2; +EPINEPHrine INJ 1 MG/ML 1ML AMP IM PRN; +FERR1TAB8 PO; +GABA-282 PO; +METO25TA PO; +VITMTA PO; +diphenhydrAMINE 50MG/ML VIAL IV PRN; +methylPREDNISolone 125MG 2ML VIAL IV PRN
[2022-03-13 13:50] VITALS: BP 130/62
[2022-03-13] MEDS ORDERED: FERRIC CARBOXYMALTOSE INJ 750 MG in NS 250 ML (>50kg) IV ONE ×3 (14:00)
[2022-03-13] MEDS ORDERED: NS 1,000 ML IV SCH (14:00)
[2022-03-13 15:15] VITALS: BP 143/70
== END 2022-03-13 15:30 | disposition home or self-care (01) ==
LOC: M INFU 13:47
PROVIDERS: ATTEND Internal Medicine Nephrology
DX: D50.9 Iron deficiency anemia, unspecified (principal); Z88.2 Allergy status to sulfonamides; Z88.8 Allergy status to other drugs, medicaments and biological substances; Z91.041 Radiographic dye allergy status
CPT/HCPCS: 96365; J1439

== ENCOUNTER 2022-03-16 19:14 | Inpatient (IN) | payer MEDICARE ==
[~2022-03-16] VITALS: Ht 149.9 cm; Wt 75.7 kg
[2022-03-16] MEDS: METOPROLOL 5 MG/5 ML VIAL IV SCH (00:25)
[~2022-03-16 19:14] MED LIST changes: -ALBUTEROL SULFATE 2.5MG/0.5ML INH NEB SOLN INH PRN; -EPINEPHrine INJ 1 MG/ML 1ML AMP IM PRN; -diphenhydrAMINE 50MG/ML VIAL IV PRN; -methylPREDNISolone 125MG 2ML VIAL IV PRN
[2022-03-16 19:58] LABS: BASO # 0.1 10^3/uL (0.0-0.2); BASO % 0.4 % (0.0-1.0); EOS # 0.3 10^3/uL (0.0-0.5); EOS % 2.4 % (0.0-3.0); LYMPH # 1.3 10^3/uL (1.5-5.0); LYMPH % 9.6 % (24.0-44.0); MEAN CORPUSCULAR HEMOGLOBIN 29.9 pg (27.0-33.0); MEAN CORPUSCULAR HGB CONC 29.9 g/dl (32.0-36.5); MONO # 0.8 10^3/uL (0.0-0.8); MONO % 5.9 % (2.0-8.0); NEUTROPHILS # 10.5 10^3/uL (1.5-8.5); NEUTROPHILS % 79.9 % (36.0-66.0); PLATELET COUNT, AUTOMATED 261 10^3/uL (150-450); RED BLOOD COUNT 1.84 10^6/uL (4.00-5.40); WHITE BLOOD COUNT 13.1 10^3/uL (4.0-10.0)
[2022-03-16 20:09] LABS: HEMATOCRIT 18.4 % (36.0-47.0); HEMOGLOBIN 5.5 g/dl (12.0-15.5)
[2022-03-16 20:18] LABS: ABG BASE EXCESS -6.1 (-2.0-2.0); ABG HCO3 19.5 MEQ/L (22.0-26.0); ABG O2 SATURATION 91.6 % (95.0-99.0); ABG STANDARD HCO3 19.3 MEQ/L (22.0-26.0); ABG TOTAL CO2 20.7 MEQ/L (23.0-31.0); ABG pH (ARTERIAL) 7.317 UNITS (7.350-7.450)
[2022-03-16 20:19] LABS: CK-MB VALUE MASS 1.7 NG/ML (<3.6)
[2022-03-16 20:21] LABS: ALBUMIN 3.1 G/DL (3.2-5.2); ALKALINE PHOSPHATASE 51 U/L (46-116); ALT/SGPT 18 U/L (7.0-40); AST/SGOT 17 U/L (<34); BILIRUBIN,DIRECT < 0.1 MG/DL (<0.4); BILIRUBIN,TOTAL 0.3 MG/DL (0.3-1.2); BLOOD UREA NITROGEN 84 MG/DL (9-23); CALCIUM LEVEL 8.5 MG/DL (8.3-10.6); CARBON DIOXIDE LEVEL 20 MMOL/L (20-31); CHLORIDE LEVEL 106 MMOL/L (98-107); CPK CREATINE PHOSPHOKINASE 28 U/L (34-145); CREATININE FOR GFR 3.62 MG/DL (0.55-1.30); GLOMERULAR FILTRATION RATE 13.4 (>45); GLUCOSE, FASTING 210 MG/DL (74-106); MB/CK RELATIVE INDEX 6.07 (< OR =4); POTASSIUM SERUM 4.3 MMOL/L (3.5-5.1); SODIUM LEVEL 139 MMOL/L (136-145); TOTAL PROTEIN 5.8 G/DL (5.7-8.2)
[2022-03-16 20:23] LABS: THYROID STIMULATING HORMONE 3.831 uIU/ML (0.55-4.78)
[2022-03-16] MEDS ORDERED: PANTOPRAZOLE 40MG VIAL IV ONE (20:35)
[2022-03-16 20:42] LABS: RSV AMPLIFICATION NEGATIVE (NEGATIVE)
[2022-03-16] MEDS ORDERED: GABA-282 PO (21:09)
[2022-03-16 21:10] VITALS: BP 130/60
[2022-03-16] MEDS ORDERED: TORS20TA2 PO (21:10)
[2022-03-16] MEDS ORDERED: BASA100I SC (21:11)
[2022-03-16] MEDS ORDERED: CARV12.5 PO (21:12)
[2022-03-16] MEDS ORDERED: FUROSEMIDE 100MG/10ML VIAL IV ONE (21:15)
[2022-03-16] MEDS ORDERED: HOME MED LIST COMPLETE! XX SCH (21:15)
[2022-03-16 21:31] VITALS: BP 119/56
[2022-03-16] MEDS ORDERED: GLUCOSE 4GM CHEW TABLET PO PRN (21:45)
[2022-03-16] MEDS ORDERED: GLUCAGON INJ 1MG VIAL SC PRN (21:45)
[2022-03-16] MEDS ORDERED: DEXTROSE 50% 50ML SYRINGE IV PRN (21:45)
[2022-03-16 22:21] VITALS: BP 127/57
[2022-03-16 22:45] VITALS: BP 129/61
[2022-03-16] MEDS ORDERED: cloNIDine HCL 0.2 MG/24 HR PATCH TOP STA (22:54)
[2022-03-16] MEDS: SUCRALFATE SUSP 1GM/10ML UD PO SCH (23:11)
[2022-03-16 23:20] VITALS: BP 132/59
[2022-03-16] MEDS: LEVEMIR (INSULIN DETEMIR) 1 UNITS/0.01ML SC SCH (23:40)
[2022-03-17] VITALS (24 sets, daily range): BP systolic 112–155; BP diastolic 61–84
[2022-03-17] MEDS: INSULIN LISPRO (NovoLOG) PER UNIT SC SCH ×6 (00:33→22:56)
[2022-03-17] MEDS: PANTOPRAZOLE SODIUM 40 MG in D5W 50 ML IV SCH ×2 (00:45→03:49)
[2022-03-17] MEDS ORDERED: FUROSEMIDE 40MG/4ML VIAL IV ONE (02:35)
[2022-03-17] MEDS: ALBUTEROL SULFATE 2.5MG/0.5ML INH NEB SOLN NEB PRN (02:50)
[2022-03-17] MEDS: IPRATROPIUM 0.5MG/ALBUTEROL 2.5MG INH SOL UD 3ML (DUONEB) NEB SCH ×4 (02:50→20:21)
[2022-03-17 03:37] LABS: HEMATOCRIT 30.3 % (36.0-47.0); HEMOGLOBIN 9.2 g/dl (12.0-15.5); MEAN CORPUSCULAR HEMOGLOBIN 25.3 pg (27.0-33.0); MEAN CORPUSCULAR HGB CONC 30.4 g/dl (32.0-36.5); MEAN CORPUSCULAR VOLUME 83.2 fl (80.0-96.0); PLATELET COUNT, AUTOMATED 270 10^3/uL (150-450); RED BLOOD COUNT 3.64 10^6/uL (4.00-5.40); WHITE BLOOD COUNT 15.4 10^3/uL (4.0-10.0)
[2022-03-17] MEDS: SUCRALFATE SUSP 1GM/10ML UD PO SCH ×5 (03:45→22:51)
[2022-03-17] MEDS: METOPROLOL 5 MG/5 ML VIAL IV SCH ×5 (03:49→22:59)
[2022-03-17 04:01] LABS: ALBUMIN 3.2 G/DL (3.2-5.2); BILIRUBIN,TOTAL 1.2 MG/DL (0.3-1.2); CALCIUM LEVEL 8.5 MG/DL (8.3-10.6); CREATININE FOR GFR 3.52 MG/DL (0.55-1.30); GLOMERULAR FILTRATION RATE 13.8 (>45); MAGNESIUM LEVEL 2.4 MG/DL (1.8-2.4); POTASSIUM SERUM 4.3 MMOL/L (3.5-5.1); TOTAL PROTEIN 6.3 G/DL (5.7-8.2)
[2022-03-17 04:14] LABS: ABG BASE EXCESS -5.6 (-2.0-2.0); ABG HCO3 19.7 MEQ/L (22.0-26.0); ABG O2 SATURATION 93.4 % (95.0-99.0); ABG PARTIAL PRESSURE CO2 37.7 mmHg (35.0-45.0); ABG PARTIAL PRESSURE O2 69.4 mmHg (75.0-100.0); ABG STANDARD HCO3 19.8 MEQ/L (22.0-26.0); ABG TOTAL CO2 20.9 MEQ/L (23.0-31.0); ABG pH (ARTERIAL) 7.336 UNITS (7.350-7.450)
[2022-03-17] MEDS: PANTOPRAZOLE 40MG VIAL IV SCH ×3 (09:56→22:54)
[2022-03-17] MEDS: LEVEMIR (INSULIN DETEMIR) 1 UNITS/0.01ML SC SCH ×3 (09:56→22:54)
[2022-03-17] MEDS ORDERED: FUROSEMIDE 100MG/10ML VIAL IV SCH (10:00)
[2022-03-17 12:05] LABS: HEMATOCRIT 27.2 % (36.0-47.0); HEMOGLOBIN 8.5 g/dl (12.0-15.5)
[2022-03-17] MEDS ORDERED: fentaNYL 100 MCG/2 ML INJECTION As Ordered ONE (14:30)
[2022-03-17] MEDS ORDERED: propofoL 200 MG/20 ML VIAL As Ordered ONE (14:30)
[2022-03-17] MEDS ORDERED: LIDOCAINE 2% 100MG/5ML SDV (FOR ANES.) As Ordered ONE (14:30)
[2022-03-17] MEDS: PIPERACILLIN/TAZOBACTAM SOD 4.5 GM in D5W MINI-BAG PLUS 50 ML IV SCH (17:03)
[2022-03-17 17:15] LABS: BASO # 0.1 10^3/uL (0.0-0.2); BASO % 0.5 % (0.0-1.0); EOS # 0.3 10^3/uL (0.0-0.5); EOS % 1.8 % (0.0-3.0); HEMATOCRIT 28.4 % (36.0-47.0); HEMOGLOBIN 8.7 g/dl (12.0-15.5); LYMPH # 1.2 10^3/uL (1.5-5.0); LYMPH % 9.1 % (24.0-44.0); MEAN CORPUSCULAR HEMOGLOBIN 25.5 pg (27.0-33.0); MEAN CORPUSCULAR HGB CONC 30.6 g/dl (32.0-36.5); MEAN CORPUSCULAR VOLUME 83.3 fl (80.0-96.0); MONO # 1.3 10^3/uL (0.0-0.8); MONO % 9.8 % (2.0-8.0); NEUTROPHILS # 10.5 10^3/uL (1.5-8.5); NEUTROPHILS % 77.6 % (36.0-66.0); PLATELET COUNT, AUTOMATED 254 10^3/uL (150-450); RED BLOOD COUNT 3.41 10^6/uL (4.00-5.40); WHITE BLOOD COUNT 13.6 10^3/uL (4.0-10.0)
[2022-03-17 17:26] LABS: ALBUMIN 3.3 G/DL (3.2-5.2); BILIRUBIN,TOTAL 0.7 MG/DL (0.3-1.2); CALCIUM LEVEL 8.9 MG/DL (8.3-10.6); CREATININE FOR GFR 3.64 MG/DL (0.55-1.30); GLOMERULAR FILTRATION RATE 13.3 (>45); MAGNESIUM LEVEL 2.2 MG/DL (1.8-2.4); TOTAL PROTEIN 6.1 G/DL (5.7-8.2)
[2022-03-17] MEDS ORDERED: FUROSEMIDE 100MG/10ML VIAL IV ONE (18:00)
[2022-03-17] MEDS: ASPIRIN 81MG CHEW TABLET PO SCH ×2 (21:00→22:54)
[2022-03-17] MEDS: TICAGRELOR 90 MG TABLET (BRILINTA) PO SCH ×2 (21:00→22:51)
[2022-03-17 22:07] LABS: VENOUS BASE EXCESS -4.6 (-2.0-2.0); VENOUS O2 SATURATION 98.2 % (60.0-80.0); VENOUS PARTIAL PRESSURE O2 119.9 mmHg (30.0-50.0); VENOUS PH 7.375 UNITS (7.330-7.430); VENOUS STANDARD HCO3 20.6 MEQ/L; VENOUS TOTAL CO2 21.1 MEQ/L (24.0-28.0)
[2022-03-17 22:18] LABS: BASO # 0.1 10^3/uL (0.0-0.2); BASO % 0.4 % (0.0-1.0); EOS # 0.3 10^3/uL (0.0-0.5); EOS % 2.7 % (0.0-3.0); HEMATOCRIT 27.9 % (36.0-47.0); HEMOGLOBIN 8.5 g/dl (12.0-15.5); LYMPH # 1.5 10^3/uL (1.5-5.0); LYMPH % 13.4 % (24.0-44.0); MEAN CORPUSCULAR HEMOGLOBIN 25.8 pg (27.0-33.0); MEAN CORPUSCULAR HGB CONC 30.5 g/dl (32.0-36.5); MEAN CORPUSCULAR VOLUME 84.8 fl (80.0-96.0); MONO # 1.1 10^3/uL (0.0-0.8); MONO % 9.5 % (2.0-8.0); NEUTROPHILS # 8.3 10^3/uL (1.5-8.5); NEUTROPHILS % 73.3 % (36.0-66.0); PLATELET COUNT, AUTOMATED 227 10^3/uL (150-450); RED BLOOD COUNT 3.29 10^6/uL (4.00-5.40); WHITE BLOOD COUNT 11.3 10^3/uL (4.0-10.0)
[2022-03-17 22:34] LABS: ANISOCYTOSIS 2+; MICROCYTOSIS 1+
[2022-03-17 22:35] LABS: HYPOCHROMASIA 2+
[2022-03-17 22:36] LABS: BURR CELLS 1+; POIKILOCYTOSIS 2+; POLYCHROMASIA 1+
[2022-03-17 22:38] LABS: PLATELET ESTIMATE NORMAL (NORMAL)
[2022-03-17 22:45] LABS: CALCIUM LEVEL 8.3 MG/DL (8.3-10.6); CK-MB VALUE MASS 1.4 NG/ML (<3.6); CREATININE FOR GFR 3.71 MG/DL (0.55-1.30); POTASSIUM SERUM 3.7 MMOL/L (3.5-5.1); TOTAL PROTEIN 5.9 G/DL (5.7-8.2)
[2022-03-18] VITALS (34 sets, daily range): BP systolic 106–169; BP diastolic 56–99; O2SAT 95
[2022-03-18] MEDS: IPRATROPIUM 0.5MG/ALBUTEROL 2.5MG INH SOL UD 3ML (DUONEB) NEB SCH ×4 (01:05→20:00)
[2022-03-18] MEDS: METOPROLOL 5 MG/5 ML VIAL IV SCH (03:50)
[2022-03-18] MEDS: SUCRALFATE SUSP 1GM/10ML UD PO SCH ×4 (03:50→21:57)
[2022-03-18] MEDS: PIPERACILLIN/TAZOBACTAM SOD 4.5 GM in D5W MINI-BAG PLUS 50 ML IV SCH ×2 (03:50→18:10)
[2022-03-18 04:36] LABS: BASO % 0.4 % (0.0-1.0); EOS # 0.6 10^3/uL (0.0-0.5); EOS % 4.9 % (0.0-3.0); HEMATOCRIT 27.6 % (36.0-47.0); HEMOGLOBIN 8.1 g/dl (12.0-15.5); LYMPH # 1.5 10^3/uL (1.5-5.0); LYMPH % 13.5 % (24.0-44.0); MEAN CORPUSCULAR HEMOGLOBIN 25.8 pg (27.0-33.0); MEAN CORPUSCULAR HGB CONC 29.3 g/dl (32.0-36.5); MEAN CORPUSCULAR VOLUME 87.9 fl (80.0-96.0); MONO # 1.1 10^3/uL (0.0-0.8); MONO % 9.4 % (2.0-8.0); NEUTROPHILS % 71.1 % (36.0-66.0); PLATELET COUNT, AUTOMATED 220 10^3/uL (150-450); RED BLOOD COUNT 3.14 10^6/uL (4.00-5.40); WHITE BLOOD COUNT 11.2 10^3/uL (4.0-10.0)
[2022-03-18 04:57] LABS: ANISOCYTOSIS 1+; HYPOCHROMASIA 2+; MICROCYTOSIS 1+
[2022-03-18 04:58] LABS: OVALOCYTES 1+; POLYCHROMASIA 1+
[2022-03-18 04:59] LABS: POIKILOCYTOSIS 1+
[2022-03-18 05:00] LABS: TEAR DROP CELLS 1+
[2022-03-18 05:08] LABS: PERCENT SATURATION 13.1 % (13.2-45.0)
[2022-03-18 05:10] LABS: FERRITIN 576.8 NG/ML (7.3-270.7)
[2022-03-18 06:06] LABS: PLATELET ESTIMATE NORMAL (NORMAL)
[2022-03-18 06:28] LABS: BILIRUBIN,TOTAL 0.9 MG/DL (0.3-1.2); CALCIUM LEVEL 8.4 MG/DL (8.3-10.6); CREATININE FOR GFR 3.74 MG/DL (0.55-1.30); GLOMERULAR FILTRATION RATE 12.9 (>45); MAGNESIUM LEVEL 2.1 MG/DL (1.8-2.4); MB/CK RELATIVE INDEX 4.16 (< OR =4); POTASSIUM SERUM 3.6 MMOL/L (3.5-5.1); TOTAL PROTEIN 5.6 G/DL (5.7-8.2)
[2022-03-18 06:39] LABS: C REACTIVE PROTEIN QUANTITATIV 2.8 MG/DL (<1.0)
[2022-03-18] MEDS: INSULIN LISPRO (NovoLOG) PER UNIT SC SCH ×4 (07:30→21:00)
[2022-03-18] MEDS: TICAGRELOR 90 MG TABLET (BRILINTA) PO SCH ×2 (08:21→21:57)
[2022-03-18] MEDS: CARVedilol 12.5 MG TAB PO SCH ×2 (08:21→21:57)
[2022-03-18] MEDS: PANTOPRAZOLE 40MG TAB (PROTONIX) PO SCH ×2 (08:22→21:55)
[2022-03-18] MEDS: LEVEMIR (INSULIN DETEMIR) 1 UNITS/0.01ML SC SCH ×2 (08:22→21:54)
[2022-03-18] MEDS: ASPIRIN 81MG CHEW TABLET PO SCH ×2 (08:22→21:57)
[2022-03-18] MEDS: FUROSEMIDE 100MG/10ML VIAL IV SCH ×2 (10:09→18:10)
[2022-03-18] MEDS ORDERED: FERRIC CARBOXYMALTOSE INJ 750 MG, VIAL MATE ADAPTER 1 EACH in NS 250 ML IV ONE (12:00)
[2022-03-18 13:15] LABS: BASO % 0.4 % (0.0-1.0); EOS # 0.5 10^3/uL (0.0-0.5); EOS % 4.7 % (0.0-3.0); HEMOGLOBIN 7.9 g/dl (12.0-15.5); LYMPH # 0.9 10^3/uL (1.5-5.0); LYMPH % 8.6 % (24.0-44.0); MEAN CORPUSCULAR HEMOGLOBIN 25.9 pg (27.0-33.0); MEAN CORPUSCULAR HGB CONC 30.4 g/dl (32.0-36.5); MEAN CORPUSCULAR VOLUME 85.2 fl (80.0-96.0); MONO # 0.8 10^3/uL (0.0-0.8); MONO % 7.8 % (2.0-8.0); NEUTROPHILS # 8.3 10^3/uL (1.5-8.5); PLATELET COUNT, AUTOMATED 228 10^3/uL (150-450); RED BLOOD COUNT 3.05 10^6/uL (4.00-5.40); WHITE BLOOD COUNT 10.6 10^3/uL (4.0-10.0)
[2022-03-18 14:39] LABS: ANISOCYTOSIS 3+; HYPOCHROMASIA 2+
[2022-03-18 14:41] LABS: OVALOCYTES 1+; PLATELET ESTIMATE NORMAL (NORMAL)
[2022-03-18 20:17] LABS: HEMATOCRIT 27.5 % (36.0-47.0); HEMOGLOBIN 8.9 g/dl (12.0-15.5)
[2022-03-18] MEDS ORDERED: ATORVASTATIN 20 MG TAB PO SCH (21:00)
[2022-03-19] VITALS: BP 150/69
[2022-03-19] MEDS: IPRATROPIUM 0.5MG/ALBUTEROL 2.5MG INH SOL UD 3ML (DUONEB) NEB SCH ×3 (01:38→14:06)
[2022-03-19 04:00] VITALS: BP 168/78
[2022-03-19] MEDS: SUCRALFATE SUSP 1GM/10ML UD PO SCH ×2 (04:15→11:45)
[2022-03-19] MEDS: PIPERACILLIN/TAZOBACTAM SOD 4.5 GM in D5W MINI-BAG PLUS 50 ML IV SCH (04:17)
[2022-03-19 04:28] LABS: BASO % 0.4 % (0.0-1.0); EOS # 0.7 10^3/uL (0.0-0.5); EOS % 7.5 % (0.0-3.0); HEMATOCRIT 28.2 % (36.0-47.0); LYMPH # 1.1 10^3/uL (1.5-5.0); LYMPH % 11.5 % (24.0-44.0); MEAN CORPUSCULAR HEMOGLOBIN 26.9 pg (27.0-33.0); MEAN CORPUSCULAR HGB CONC 31.9 g/dl (32.0-36.5); MEAN CORPUSCULAR VOLUME 84.4 fl (80.0-96.0); MONO % 9.9 % (2.0-8.0); NEUTROPHILS # 6.9 10^3/uL (1.5-8.5); PLATELET COUNT, AUTOMATED 215 10^3/uL (150-450); RED BLOOD COUNT 3.34 10^6/uL (4.00-5.40); WHITE BLOOD COUNT 9.9 10^3/uL (4.0-10.0)
[2022-03-19 04:52] LABS: CALCIUM LEVEL 8.7 MG/DL (8.3-10.6); CREATININE FOR GFR 3.7 MG/DL (0.55-1.30); POTASSIUM SERUM 3.5 MMOL/L (3.5-5.1)
[2022-03-19 07:29] VITALS: O2SAT 93
[2022-03-19] MEDS: INSULIN LISPRO (NovoLOG) PER UNIT SC SCH ×2 (07:30→12:39)
[2022-03-19 08:00] VITALS: BP 156/71
[2022-03-19] MEDS ORDERED: POTASSIUM CHLORIDE 10MEQ SR TABLET PO SCH (09:00)
[2022-03-19] MEDS ORDERED: CEFDINIR 300 MG CAP (OMNICEF) PO SCH (09:00)
[2022-03-19] MEDS ORDERED: TORSEMIDE 20 MG TAB PO SCH (09:00)
[2022-03-19] MEDS: PANTOPRAZOLE 40MG TAB (PROTONIX) PO SCH (09:14)
[2022-03-19] MEDS: ASPIRIN 81MG CHEW TABLET PO SCH (09:14)
[2022-03-19] MEDS: TICAGRELOR 90 MG TABLET (BRILINTA) PO SCH (09:14)
[2022-03-19] MEDS: CARVedilol 12.5 MG TAB PO SCH (09:16)
[2022-03-19] MEDS: LEVEMIR (INSULIN DETEMIR) 1 UNITS/0.01ML SC SCH (09:16)
[2022-03-19] MEDS ORDERED: CEFD300CAP PO (09:21)
[2022-03-19] MEDS ORDERED: PANT40TA29 PO (09:21)
[2022-03-19] MEDS ORDERED: SUCR1TA PO (10:08)
[2022-03-19 12:00] VITALS: BP 141/82
[2022-03-19 12:05] LABS: HEMATOCRIT 30.2 % (36.0-47.0); HEMOGLOBIN 9.7 g/dl (12.0-15.5)
== END 2022-03-19 15:41 | disposition left against medical advice (07) | DRG 383 ==
LOC: M ED 19:14 → M ED INP 21:43 → M PCU 22:35 → M ICU 03-17 03:08
PROVIDERS: ADMIT Internal Medicine; ATTEND Internal Medicine
PROC: 30233N1 Transfusion of Nonautologous Red Blood Cells into Peripheral Vein, Percutaneous Approach (ICD-10-PCS; 2022-03-16)
PROC: 0DB68ZX Excision of Stomach, Via Natural or Artificial Opening Endoscopic, Diagnostic (ICD-10-PCS; 2022-03-17)
PROC: 0DB78ZX Excision of Stomach, Pylorus, Via Natural or Artificial Opening Endoscopic, Diagnostic (ICD-10-PCS; principal; 2022-03-17 15:00)
DX: K25.9 Gastric ulcer, unspecified as acute or chronic, without hemorrhage or perforation (principal); I50.43 Acute on chronic combined systolic (congestive) and diastolic (congestive) heart failure; I13.0 Hypertensive heart and chronic kidney disease with heart failure and stage 1 through stage 4 chronic kidney disease, or unspecified chronic kidney disease; N18.4 Chronic kidney disease, stage 4 (severe); N17.9 Acute kidney failure, unspecified; G93.40 Encephalopathy, unspecified; D62 Acute posthemorrhagic anemia; J81.1 Chronic pulmonary edema; E87.20 Acidosis, unspecified; I24.8 Other forms of acute ischemic heart disease; D63.1 Anemia in chronic kidney disease; I25.10 Atherosclerotic heart disease of native coronary artery without angina pectoris; D50.9 Iron deficiency anemia, unspecified; E78.00 Pure hypercholesterolemia, unspecified; K21.9 Gastro-esophageal reflux disease without esophagitis; E11.42 Type 2 diabetes mellitus with diabetic polyneuropathy; K29.70 Gastritis, unspecified, without bleeding; R09.02 Hypoxemia; N30.90 Cystitis, unspecified without hematuria; E87.71 Transfusion associated circulatory overload; E66.9 Obesity, unspecified; B96.20 Unspecified Escherichia coli [E. coli] as the cause of diseases classified elsewhere; I25.2 Old myocardial infarction; E11.22 Type 2 diabetes mellitus with diabetic chronic kidney disease; I25.5 Ischemic cardiomyopathy; Z79.4 Long term (current) use of insulin; Z79.899 Other long term (current) drug therapy; Z88.2 Allergy status to sulfonamides; Z88.8 Allergy status to other drugs, medicaments and biological substances; Z91.041 Radiographic dye allergy status; Z98.84 Bariatric surgery status; Z86.73 Personal history of transient ischemic attack (TIA), and cerebral infarction without residual deficits; Z68.37 Body mass index [BMI] 37.0-37.9, adult; Z95.5 Presence of coronary angioplasty implant and graft; Z79.82 Long term (current) use of aspirin

== ENCOUNTER → 2022-04-10 | Outpatient (CLI) | payer MEDICARE ==
[~2022-04-10] MED LIST changes: +CEFD300CAP PO; +PANT40TA29 PO; +SUCR1TA PO
[2022-04-10 14:37] LABS: HEMATOCRIT 31.6 % (36.0-47.0); HEMOGLOBIN 9.6 g/dl (12.0-15.5); MEAN CORPUSCULAR HEMOGLOBIN 28.2 pg (27.0-33.0); MEAN CORPUSCULAR HGB CONC 30.4 g/dl (32.0-36.5); MEAN CORPUSCULAR VOLUME 92.7 fl (80.0-96.0); PLATELET COUNT, AUTOMATED 239 10^3/uL (150-450); RED BLOOD COUNT 3.41 10^6/uL (4.00-5.40); WHITE BLOOD COUNT 10.8 10^3/uL (4.0-10.0)
[2022-04-10 14:50] LABS: HEMOGLOBIN A1c 5.2 % (4.0-6.0)
[2022-04-10 15:06] LABS: PERCENT SATURATION 21.1 % (13.2-45.0)
[2022-04-10 15:09] LABS: BILIRUBIN,TOTAL 0.3 MG/DL (0.3-1.2); CALCIUM LEVEL 8.2 MG/DL (8.3-10.6); CREATININE FOR GFR 3.18 MG/DL (0.55-1.30); GLOMERULAR FILTRATION RATE 15.5 (>45); MAGNESIUM LEVEL 1.9 MG/DL (1.8-2.4)
== END ==
LOC: M PLALAB 10:28
PROVIDERS: ATTEND Nurse Practitioner Adult Health
DX: E87.6 Hypokalemia (principal); D50.9 Iron deficiency anemia, unspecified

== ENCOUNTER → 2022-04-30 | Outpatient (REF) | payer MEDICARE ==
[2022-04-30 19:18] LABS: PERCENT SATURATION 18.8 % (13.2-45.0)
== END ==
LOC: M LAB REF 18:21
PROVIDERS: ATTEND Internal Medicine Nephrology
DX: D50.9 Iron deficiency anemia, unspecified (principal)

== ENCOUNTER 2022-06-05 14:51 | Inpatient (IN) | payer MEDICARE ==
[~2022-06-05] VITALS: Ht 149.9 cm; Wt 73.9 kg
[2022-06-05 15:57] LABS: BASO % 0.3 % (0.0-1.0); EOS # 0.2 10^3/uL (0.0-0.5); EOS % 1.9 % (0.0-3.0); HEMATOCRIT 33.5 % (36.0-47.0); HEMOGLOBIN 10.5 g/dl (12.0-15.5); LYMPH # 0.5 10^3/uL (1.5-5.0); LYMPH % 4.4 % (24.0-44.0); MEAN CORPUSCULAR HEMOGLOBIN 29.3 pg (27.0-33.0); MEAN CORPUSCULAR HGB CONC 31.3 g/dl (32.0-36.5); MEAN CORPUSCULAR VOLUME 93.6 fl (80.0-96.0); MONO # 0.8 10^3/uL (0.0-0.8); MONO % 6.7 % (2.0-8.0); NEUTROPHILS # 10.5 10^3/uL (1.5-8.5); NEUTROPHILS % 85.7 % (36.0-66.0); PLATELET COUNT, AUTOMATED 192 10^3/uL (150-450); RED BLOOD COUNT 3.58 10^6/uL (4.00-5.40); WHITE BLOOD COUNT 12.2 10^3/uL (4.0-10.0)
[2022-06-05 16:03] LABS: CK-MB VALUE MASS 2.2 NG/ML (<3.6)
[2022-06-05 16:05] LABS: MB/CK RELATIVE INDEX 4.23 (< OR =4)
[2022-06-05 16:06] LABS: ALBUMIN 3.3 G/DL (3.2-5.2); BILIRUBIN,DIRECT 0.2 MG/DL (<0.4); BILIRUBIN,TOTAL 0.7 MG/DL (0.3-1.2); CALCIUM LEVEL 8.2 MG/DL (8.3-10.6); CREATININE FOR GFR 3.62 MG/DL (0.55-1.30); GLOMERULAR FILTRATION RATE 13.3 (>45); POTASSIUM SERUM 4.4 MMOL/L (3.5-5.1); TOTAL PROTEIN 6.6 G/DL (5.7-8.2)
[2022-06-05 16:08] LABS: THYROID STIMULATING HORMONE 3.322 uIU/ML (0.55-4.78)
[2022-06-05 16:10] LABS: INR 0.98; PROTHROMBIN TIME 13.2 SECONDS (12.5-14.5)
[2022-06-05 16:12] LABS: D-DIMER QUANT 1137.87 ng/ml (<500)
[2022-06-05] MEDS ORDERED: FUROSEMIDE 100MG/10ML VIAL IV ONE (16:40)
[2022-06-05] MEDS ORDERED: NITROGLYCERIN 2% OINT 1 GM *U/D* PKT TOP ONE (16:40)
[2022-06-05 17:20] LABS: CK-MB VALUE MASS 1.8 NG/ML (<3.6)
[2022-06-05 17:25] LABS: MB/CK RELATIVE INDEX 3.52 (< OR =4)
[2022-06-05] MEDS ORDERED: POTA1TAB23 PO (20:29)
[2022-06-05] MEDS ORDERED: GLUCAGON INJ 1MG VIAL SC PRN (20:45)
[2022-06-05] MEDS ORDERED: HOME MED LIST COMPLETE! XX SCH (20:45)
[2022-06-05] MEDS ORDERED: DEXTROSE 50% 50ML SYRINGE IV PRN (20:45)
[2022-06-05] MEDS ORDERED: GLUCOSE 4GM CHEW TABLET PO PRN (20:45)
[2022-06-05] MEDS: INSULIN LISPRO (NovoLOG) PER UNIT SC SCH (21:00)
[2022-06-05] MEDS: LEVEMIR (INSULIN DETEMIR) 1 UNITS/0.01ML SC SCH (21:00)
[2022-06-05 23:46] VITALS: BP 187/88
[2022-06-05] MEDS: cefTRIAXone SOD 1 GM in D5W MINI-BAG PLUS 50 ML IV SCH (23:53)
[2022-06-06] VITALS (23 sets, daily range): BP systolic 105–179; BP diastolic 52–84
[2022-06-06] MEDS: ATORVASTATIN 20 MG TAB PO SCH
[2022-06-06] MEDS: **hydrALAZINE HCL** 25 MG TAB PO SCH ×3 (00:01→19:15)
[2022-06-06] MEDS: DULoxetine 30MG CAPSULE (CYMBALTA) PO SCH ×2 (00:01→08:41)
[2022-06-06] MEDS: ASPIRIN 81MG CHEW TABLET PO SCH ×2 (00:02→08:44)
[2022-06-06] MEDS: TICAGRELOR 90 MG TABLET (BRILINTA) PO SCH ×2 (00:21→08:41)
[2022-06-06] MEDS: ACETAMINOPHEN 500 MG TAB PO PRN ×2 (00:35→08:43)
[2022-06-06] MEDS: AZITHROMYCIN INJ 500 MG, VIAL MATE ADAPTER 1 EACH in NS 250 ML IV SCH ×2 (00:35→22:10)
[2022-06-06] MEDS: cloNIDine 0.1MG TABLET PO SCH ×2 (02:42→12:34)
[2022-06-06 05:25] LABS: BASO % 0.2 % (0.0-1.0); EOS % 0.3 % (0.0-3.0); HEMATOCRIT 25.9 % (36.0-47.0); LYMPH # 0.8 10^3/uL (1.5-5.0); LYMPH % 8.7 % (24.0-44.0); MEAN CORPUSCULAR HEMOGLOBIN 29.1 pg (27.0-33.0); MEAN CORPUSCULAR HGB CONC 30.9 g/dl (32.0-36.5); MEAN CORPUSCULAR VOLUME 94.2 fl (80.0-96.0); MONO # 1.1 10^3/uL (0.0-0.8); MONO % 12.4 % (2.0-8.0); NEUTROPHILS # 6.7 10^3/uL (1.5-8.5); NEUTROPHILS % 77.5 % (36.0-66.0); PLATELET COUNT, AUTOMATED 153 10^3/uL (150-450); RED BLOOD COUNT 2.75 10^6/uL (4.00-5.40); WHITE BLOOD COUNT 8.6 10^3/uL (4.0-10.0)
[2022-06-06 05:43] LABS: CALCIUM LEVEL 7.8 MG/DL (8.3-10.6); CREATININE FOR GFR 3.75 MG/DL (0.55-1.30); GLOMERULAR FILTRATION RATE 12.8 (>45); MAGNESIUM LEVEL 1.9 MG/DL (1.8-2.4)
[2022-06-06] MEDS: HEPARIN SOD (PORCINE) 5000UNITS/ML 1ML VIAL/SYRINGE SQ SCH ×3 (06:16→21:11)
[2022-06-06] MEDS ORDERED: FUROSEMIDE 100MG/10ML VIAL IV ONE (08:20)
[2022-06-06] MEDS: CARVedilol 12.5 MG TAB PO SCH ×2 (08:42)
[2022-06-06] MEDS: SUCRALFATE 1 GM TAB PO SCH ×3 (08:42→12:18)
[2022-06-06] MEDS: GABAPENTIN 300 MG CAP PO SCH ×2 (08:42)
[2022-06-06] MEDS: amLODIPine 5 MG TAB PO SCH (08:43)
[2022-06-06] MEDS: FERROUS SULFATE 325MG TAB PO SCH (08:44)
[2022-06-06] MEDS: LEVEMIR (INSULIN DETEMIR) 1 UNITS/0.01ML SC SCH ×2 (09:00→21:11)
[2022-06-06] MEDS: INSULIN LISPRO (NovoLOG) PER UNIT SC SCH ×4 (09:09→20:28)
[2022-06-06 09:26] LABS: ABG BASE EXCESS -8.9 (-2.0-2.0); ABG HCO3 17.5 MEQ/L (22.0-26.0); ABG O2 SATURATION 92.9 % (95.0-99.0); ABG PARTIAL PRESSURE CO2 39.6 mmHg (35.0-45.0); ABG PARTIAL PRESSURE O2 71.2 mmHg (75.0-100.0); ABG STANDARD HCO3 17.2 MEQ/L (22.0-26.0); ABG TOTAL CO2 18.7 MEQ/L (23.0-31.0); ABG pH (ARTERIAL) 7.263 UNITS (7.350-7.450)
[2022-06-06] MEDS ORDERED: SODIUM BICARBONATE 8.4% INJ 50ML SYRINGE IV STA (09:35)
[2022-06-06] MEDS ORDERED: FUROSEMIDE 40MG/4ML VIAL IV ONE (09:40)
[2022-06-06] MEDS: cefTRIAXone SOD 1 GM in D5W MINI-BAG PLUS 50 ML IV SCH ×2 (09:51→21:11)
[2022-06-06] MEDS: PANTOPRAZOLE 40MG VIAL IV SCH (11:13)
[2022-06-06 14:43] LABS: HEMATOCRIT 26.7 % (36.0-47.0); HEMOGLOBIN 8.3 g/dl (12.0-15.5)
[2022-06-06] MEDS: FUROSEMIDE injection 250 MG in D5W 225 ML IV SCH (14:58)
[2022-06-06 15:14] LABS: CREATININE FOR GFR 3.92 MG/DL (0.55-1.30); GLOMERULAR FILTRATION RATE 12.2 (>45); POTASSIUM SERUM 4.5 MMOL/L (3.5-5.1)
[2022-06-06 20:59] LABS: CALCIUM LEVEL 7.9 MG/DL (8.3-10.6); CREATININE FOR GFR 4.05 MG/DL (0.55-1.30); GLOMERULAR FILTRATION RATE 11.7 (>45); POTASSIUM SERUM 4.5 MMOL/L (3.5-5.1)
[2022-06-07] VITALS (12 sets, daily range): BP systolic 129–162; BP diastolic 60–77
[2022-06-07 05:34] LABS: ABG HCO3 18.2 MMOL/L (22.0-26.0); ABG O2 SATURATION 98.1 % (95.0-99.0); ABG PARTIAL PRESSURE O2 129.6 mmHg (75.0-100.0); ABG STANDARD HCO3 18.7 MMOL/L. (22.0-26.0); ABG TOTAL CO2 19.3 MMOL/L (23.0-31.0); ABG pH (ARTERIAL) 7.334 UNITS (7.350-7.450)
[2022-06-07 05:48] LABS: BASO % 0.1 % (0.0-1.0); HEMATOCRIT 26.5 % (36.0-47.0); HEMOGLOBIN 8.5 g/dl (12.0-15.5); LYMPH # 0.6 10^3/uL (1.5-5.0); LYMPH % 5.4 % (24.0-44.0); MEAN CORPUSCULAR HEMOGLOBIN 29.6 pg (27.0-33.0); MEAN CORPUSCULAR HGB CONC 32.1 g/dl (32.0-36.5); MEAN CORPUSCULAR VOLUME 92.3 fl (80.0-96.0); MONO # 0.8 10^3/uL (0.0-0.8); MONO % 7.5 % (2.0-8.0); NEUTROPHILS # 8.7 10^3/uL (1.5-8.5); NEUTROPHILS % 86.2 % (36.0-66.0); PLATELET COUNT, AUTOMATED 167 10^3/uL (150-450); RED BLOOD COUNT 2.87 10^6/uL (4.00-5.40); WHITE BLOOD COUNT 10.1 10^3/uL (4.0-10.0)
[2022-06-07] MEDS: HEPARIN SOD (PORCINE) 5000UNITS/ML 1ML VIAL/SYRINGE SQ SCH ×3 (05:56→21:49)
[2022-06-07 06:14] LABS: ALBUMIN 2.8 G/DL (3.2-5.2); ALKALINE PHOSPHATASE 75 U/L (46-116); ALT/SGPT 23 U/L (7.0-40); AST/SGOT < 8 U/L (<34); BILIRUBIN,DIRECT < 0.1 MG/DL (<0.4); BILIRUBIN,TOTAL 0.2 MG/DL (0.3-1.2); BLOOD UREA NITROGEN 68 MG/DL (9-23); CALCIUM LEVEL 8.1 MG/DL (8.3-10.6); CARBON DIOXIDE LEVEL 21 MMOL/L (20-31); CHLORIDE LEVEL 107 MMOL/L (98-107); CREATININE FOR GFR 4.05 MG/DL (0.55-1.30); GLOMERULAR FILTRATION RATE 11.7 (>45); GLUCOSE, FASTING 178 MG/DL (74-106); SODIUM LEVEL 140 MMOL/L (136-145); TOTAL PROTEIN 5.7 G/DL (5.7-8.2)
[2022-06-07 06:20] LABS: INR 1.21; PROTHROMBIN TIME 15.6 SECONDS (12.5-14.5)
[2022-06-07 06:21] LABS: PARTIAL THROMBOPLASTIN TIME 37.5 SECONDS (24.8-34.2)
[2022-06-07] MEDS: INSULIN LISPRO (NovoLOG) PER UNIT SC SCH ×4 (08:16→20:28)
[2022-06-07] MEDS: PANTOPRAZOLE 40MG VIAL IV SCH (08:16)
[2022-06-07] MEDS: LEVEMIR (INSULIN DETEMIR) 1 UNITS/0.01ML SC SCH ×2 (08:16→20:28)
[2022-06-07] MEDS: **hydrALAZINE HCL** 25 MG TAB PO SCH ×2 (08:17→20:29)
[2022-06-07] MEDS: cefTRIAXone SOD 1 GM in D5W MINI-BAG PLUS 50 ML IV SCH (09:36)
[2022-06-07] MEDS ORDERED: GABAPENTIN 300 MG CAP PO SCH (11:49)
[2022-06-07] MEDS: ASPIRIN 81MG CHEW TABLET PO SCH (12:20)
[2022-06-07] MEDS: CARVedilol 12.5 MG TAB PO SCH ×2 (12:20→20:29)
[2022-06-07] MEDS: AZITHROMYCIN 250MG TABLET PO SCH (12:20)
[2022-06-07] MEDS: SUCRALFATE 1 GM TAB PO SCH ×3 (12:23→20:29)
[2022-06-07 13:09] LABS: ALBUMIN 2.8 G/DL (3.2-5.2); ALKALINE PHOSPHATASE 78 U/L (46-116); ALT/SGPT 31 U/L (7.0-40); AST/SGOT 37 U/L (<34); BILIRUBIN,TOTAL < 0.2 MG/DL (0.3-1.2); BLOOD UREA NITROGEN 70 MG/DL (9-23); CALCIUM LEVEL 7.8 MG/DL (8.3-10.6); CARBON DIOXIDE LEVEL 18 MMOL/L (20-31); CHLORIDE LEVEL 107 MMOL/L (98-107); GLOMERULAR FILTRATION RATE 12.2 (>45); GLUCOSE, FASTING 280 MG/DL (74-106); POTASSIUM SERUM 4.4 MMOL/L (3.5-5.1); SODIUM LEVEL 137 MMOL/L (136-145); TOTAL PROTEIN 6.1 G/DL (5.7-8.2)
[2022-06-07] MEDS: FUROSEMIDE injection 250 MG in D5W 225 ML IV SCH (15:20)
[2022-06-07] MEDS: ACETAMINOPHEN 500 MG TAB PO PRN ×2 (15:21→21:49)
[2022-06-07] MEDS: GABAPENTIN 300 MG CAP PO SCH (20:29)
[2022-06-07] MEDS: TICAGRELOR 90 MG TABLET (BRILINTA) PO SCH (20:29)
[2022-06-07] MEDS: ATORVASTATIN 20 MG TAB PO SCH (20:29)
[2022-06-08] VITALS (27 sets, daily range): BP systolic 154–210; BP diastolic 72–118; O2SAT 84–97
[2022-06-08 05:12] LABS: BASO % 0.1 % (0.0-1.0); HEMATOCRIT 26.8 % (36.0-47.0); HEMOGLOBIN 8.8 g/dl (12.0-15.5); LYMPH # 0.7 10^3/uL (1.5-5.0); LYMPH % 4.8 % (24.0-44.0); MEAN CORPUSCULAR HEMOGLOBIN 29.7 pg (27.0-33.0); MEAN CORPUSCULAR HGB CONC 32.8 g/dl (32.0-36.5); MEAN CORPUSCULAR VOLUME 90.5 fl (80.0-96.0); MONO % 7.1 % (2.0-8.0); NEUTROPHILS # 12.3 10^3/uL (1.5-8.5); NEUTROPHILS % 87.3 % (36.0-66.0); PLATELET COUNT, AUTOMATED 189 10^3/uL (150-450); RED BLOOD COUNT 2.96 10^6/uL (4.00-5.40)
[2022-06-08 05:33] LABS: PERCENT SATURATION 22.5 % (13.2-45.0)
[2022-06-08 05:36] LABS: FERRITIN 942.7 NG/ML (7.3-270.7)
[2022-06-08 05:38] LABS: CALCIUM LEVEL 7.8 MG/DL (8.3-10.6); CREATININE FOR GFR 3.96 MG/DL (0.55-1.30); POTASSIUM SERUM 3.4 MMOL/L (3.5-5.1)
[2022-06-08] MEDS: HEPARIN SOD (PORCINE) 5000UNITS/ML 1ML VIAL/SYRINGE SQ SCH ×3 (05:55→21:12)
[2022-06-08] MEDS: SUCROFERRIC OXYHYDROXIDE 500MG CHEW TAB (VELPHORO) PO SCH ×2 (08:00→12:15)
[2022-06-08] MEDS: LEVEMIR (INSULIN DETEMIR) 1 UNITS/0.01ML SC SCH ×2 (08:54→21:11)
[2022-06-08] MEDS: INSULIN LISPRO (NovoLOG) PER UNIT SC SCH ×4 (08:55→21:00)
[2022-06-08] MEDS: **hydrALAZINE HCL** 25 MG TAB PO SCH ×2 (08:55→21:12)
[2022-06-08] MEDS: PANTOPRAZOLE 40MG VIAL IV SCH (08:55)
[2022-06-08] MEDS: ASPIRIN 81MG CHEW TABLET PO SCH (08:55)
[2022-06-08] MEDS: TICAGRELOR 90 MG TABLET (BRILINTA) PO SCH ×2 (08:56→21:13)
[2022-06-08] MEDS: AZITHROMYCIN 250MG TABLET PO SCH (08:56)
[2022-06-08] MEDS: amLODIPine 5 MG TAB PO SCH (08:56)
[2022-06-08] MEDS: SUCRALFATE 1 GM TAB PO SCH ×4 (08:56→21:13)
[2022-06-08] MEDS: FERROUS SULFATE 325MG TAB PO SCH (08:57)
[2022-06-08] MEDS: cloNIDine 0.1MG TABLET PO SCH ×2 (08:57→21:13)
[2022-06-08] MEDS: CARVedilol 12.5 MG TAB PO SCH ×2 (08:57→21:13)
[2022-06-08] MEDS: cefTRIAXone SOD 1 GM in D5W MINI-BAG PLUS 50 ML IV SCH (08:59)
[2022-06-08] MEDS ORDERED: POTASSIUM CHLORIDE 10MEQ SR TABLET PO ONE (09:00)
[2022-06-08] MEDS ORDERED: FLUBLOK(EGG FREE)(QUAD)INFLUENZA VACC 0.5ML SYRINGE 18YRS & OLDER IM.IMMUN ONE (09:00)
[2022-06-08] MEDS ORDERED: RAMELTEON 8 MG TAB (ROZEREM) PO PRN (09:45)
[2022-06-08] MEDS: (RENVELA) SEVELAMER **CARBONate** 800 MG TAB PO SCH ×2 (12:15→17:53)
[2022-06-08] MEDS: FUROSEMIDE injection 250 MG in D5W 225 ML IV SCH (15:20)
[2022-06-08] MEDS: ATORVASTATIN 20 MG TAB PO SCH (21:12)
[2022-06-08] MEDS: GABAPENTIN 300 MG CAP PO SCH (21:13)
[2022-06-09] VITALS (12 sets, daily range): BP systolic 136–164; BP diastolic 71–90; O2SAT 94–96
[2022-06-09] MEDS ORDERED: **hydrALAZINE HCL** 25 MG TAB PO ONE (00:30)
[2022-06-09] MEDS ORDERED: ONDANSETRON 4MG 2ML VIAL IV PRN (02:20)
[2022-06-09] MEDS: HEPARIN SOD (PORCINE) 5000UNITS/ML 1ML VIAL/SYRINGE SQ SCH ×3 (05:23→20:11)
[2022-06-09 05:29] LABS: BASO % 0.1 % (0.0-1.0); HEMATOCRIT 28.5 % (36.0-47.0); HEMOGLOBIN 8.8 g/dl (12.0-15.5); LYMPH # 0.6 10^3/uL (1.5-5.0); LYMPH % 6.1 % (24.0-44.0); MEAN CORPUSCULAR HEMOGLOBIN 28.3 pg (27.0-33.0); MEAN CORPUSCULAR HGB CONC 30.9 g/dl (32.0-36.5); MEAN CORPUSCULAR VOLUME 91.6 fl (80.0-96.0); MONO # 0.9 10^3/uL (0.0-0.8); MONO % 8.6 % (2.0-8.0); NEUTROPHILS # 8.7 10^3/uL (1.5-8.5); NEUTROPHILS % 84.3 % (36.0-66.0); PLATELET COUNT, AUTOMATED 194 10^3/uL (150-450); RED BLOOD COUNT 3.11 10^6/uL (4.00-5.40); WHITE BLOOD COUNT 10.3 10^3/uL (4.0-10.0)
[2022-06-09 05:39] LABS: INR 0.96
[2022-06-09 05:40] LABS: PARTIAL THROMBOPLASTIN TIME 32.2 SECONDS (24.8-34.2)
[2022-06-09 05:58] LABS: ALBUMIN 2.7 G/DL (3.2-5.2); ALKALINE PHOSPHATASE 72 U/L (46-116); ALT/SGPT 28 U/L (7.0-40); AST/SGOT 15 U/L (<34); BILIRUBIN,DIRECT < 0.1 MG/DL (<0.4); BILIRUBIN,TOTAL < 0.2 MG/DL (0.3-1.2); BLOOD UREA NITROGEN 78 MG/DL (9-23); CARBON DIOXIDE LEVEL 22 MMOL/L (20-31); CHLORIDE LEVEL 104 MMOL/L (98-107); CREATININE FOR GFR 4.11 MG/DL (0.55-1.30); GLOMERULAR FILTRATION RATE 11.5 (>45); GLUCOSE, FASTING 266 MG/DL (74-106); POTASSIUM SERUM 3.6 MMOL/L (3.5-5.1); SODIUM LEVEL 139 MMOL/L (136-145); TOTAL PROTEIN 5.8 G/DL (5.7-8.2)
[2022-06-09] MEDS ORDERED: DARBEPOETIN 100MCG/0.5ML *NON-DIALYSIS* SYRINGE SC SCH (09:00)
[2022-06-09] MEDS: LEVEMIR (INSULIN DETEMIR) 1 UNITS/0.01ML SC SCH ×2 (09:10→20:14)
[2022-06-09] MEDS: cefTRIAXone SOD 1 GM in D5W MINI-BAG PLUS 50 ML IV SCH (09:10)
[2022-06-09] MEDS: INSULIN LISPRO (NovoLOG) PER UNIT SC SCH ×4 (09:12→20:14)
[2022-06-09] MEDS: ASPIRIN 81MG CHEW TABLET PO SCH (09:13)
[2022-06-09] MEDS: AZITHROMYCIN 250MG TABLET PO SCH (09:13)
[2022-06-09] MEDS: CARVedilol 12.5 MG TAB PO SCH ×2 (09:13→20:13)
[2022-06-09] MEDS: FERROUS SULFATE 325MG TAB PO SCH (09:13)
[2022-06-09] MEDS: (RENVELA) SEVELAMER **CARBONate** 800 MG TAB PO SCH ×4 (09:13→17:52)
[2022-06-09] MEDS: amLODIPine 5 MG TAB PO SCH (09:14)
[2022-06-09] MEDS: **hydrALAZINE HCL** 25 MG TAB PO SCH ×2 (09:14→20:12)
[2022-06-09] MEDS: cloNIDine 0.1MG TABLET PO SCH ×2 (09:15→20:12)
[2022-06-09] MEDS: PANTOPRAZOLE 40MG TAB (PROTONIX) PO SCH (09:15)
[2022-06-09] MEDS: TICAGRELOR 90 MG TABLET (BRILINTA) PO SCH ×2 (09:15→20:13)
[2022-06-09] MEDS: SUCRALFATE 1 GM TAB PO SCH ×4 (09:15→20:13)
[2022-06-09] MEDS ORDERED: POTASSIUM CHLORIDE 10MEQ SR TABLET PO ONE ×2 (09:50→18:00)
[2022-06-09] MEDS: TORSEMIDE 100 MG TAB PO SCH (12:08)
[2022-06-09] MEDS: ATORVASTATIN 20 MG TAB PO SCH (20:11)
[2022-06-09] MEDS: GABAPENTIN 300 MG CAP PO SCH (20:13)
[2022-06-10] MEDS: HEPARIN SOD (PORCINE) 5000UNITS/ML 1ML VIAL/SYRINGE SQ SCH (05:12)
[2022-06-10 05:56] LABS: HEMATOCRIT 28.7 % (36.0-47.0); HEMOGLOBIN 8.9 g/dl (12.0-15.5); LYMPH # 0.6 10^3/uL (1.5-5.0); LYMPH % 7.3 % (24.0-44.0); MEAN CORPUSCULAR HEMOGLOBIN 28.5 pg (27.0-33.0); MONO # 0.7 10^3/uL (0.0-0.8); MONO % 7.7 % (2.0-8.0); NEUTROPHILS # 7.3 10^3/uL (1.5-8.5); NEUTROPHILS % 83.6 % (36.0-66.0); PLATELET COUNT, AUTOMATED 199 10^3/uL (150-450); RED BLOOD COUNT 3.12 10^6/uL (4.00-5.40); WHITE BLOOD COUNT 8.8 10^3/uL (4.0-10.0)
[2022-06-10 06:00] VITALS: BP 159/81
[2022-06-10 06:25] LABS: CALCIUM LEVEL 8.5 MG/DL (8.3-10.6); CREATININE FOR GFR 4.18 MG/DL (0.55-1.30); GLOMERULAR FILTRATION RATE 11.3 (>45); MAGNESIUM LEVEL 2.1 MG/DL (1.8-2.4); POTASSIUM SERUM 4.3 MMOL/L (3.5-5.1)
[2022-06-10] MEDS: INSULIN LISPRO (NovoLOG) PER UNIT SC SCH (08:17)
[2022-06-10] MEDS: FERROUS SULFATE 325MG TAB PO SCH (08:18)
[2022-06-10] MEDS: PANTOPRAZOLE 40MG TAB (PROTONIX) PO SCH (08:18)
[2022-06-10] MEDS: TICAGRELOR 90 MG TABLET (BRILINTA) PO SCH (08:18)
[2022-06-10] MEDS: (RENVELA) SEVELAMER **CARBONate** 800 MG TAB PO SCH (08:18)
[2022-06-10] MEDS: ASPIRIN 81MG CHEW TABLET PO SCH (08:18)
[2022-06-10] MEDS: TORSEMIDE 100 MG TAB PO SCH (08:18)
[2022-06-10] MEDS: AZITHROMYCIN 250MG TABLET PO SCH (08:18)
[2022-06-10 08:22] VITALS: BP 142/88
[2022-06-10] MEDS: cloNIDine 0.1MG TABLET PO SCH (08:22)
[2022-06-10] MEDS: **hydrALAZINE HCL** 25 MG TAB PO SCH (08:22)
[2022-06-10] MEDS: CARVedilol 12.5 MG TAB PO SCH (08:22)
[2022-06-10] MEDS: cefTRIAXone SOD 1 GM in D5W MINI-BAG PLUS 50 ML IV SCH ×2 (08:23→10:57)
[2022-06-10] MEDS: SUCRALFATE 1 GM TAB PO SCH (08:25)
[2022-06-10] MEDS ORDERED: amLODIPine 5 MG TAB PO SCH (09:00)
[2022-06-10] MEDS ORDERED: LEVEMIR (INSULIN DETEMIR) 1 UNITS/0.01ML SC SCH ×2 (09:00→21:00)
[2022-06-10] MEDS ORDERED: TORS100T PO (10:22)
[2022-06-10] MEDS ORDERED: CEFU50TA PO (10:22)
[2022-06-10] MEDS ORDERED: CLONI1TA PO (10:22)
[2022-06-11 14:14] LABS: BODY FLUID CULTURE Not indicated. (.); LEGIONELLA ANTIGEN URINE Negative (Negative); ORGANISM ID Not indicated. (.); SPECIMEN SOURCE Urine (.); URINE STREP PNEUMONIAE ANTIGEN Negative (Negative)
== END 2022-06-10 12:13 | disposition home or self-care (01) | DRG 177 ==
LOC: M ED 14:51 → M ED INP 20:46 → ENRESERV 21:14 → M ICU 23:32 → M PCU 06-08 05:32 → M MSPAV 06-09 17:10
PROVIDERS: ADMIT Internal Medicine; ATTEND Internal Medicine
PROC: 3E0333Z Introduction of Anti-inflammatory into Peripheral Vein, Percutaneous Approach (ICD-10-PCS; principal; 2022-06-05)
DX: U07.1 COVID-19 (principal); J96.21 Acute and chronic respiratory failure with hypoxia; J15.9 Unspecified bacterial pneumonia; I50.43 Acute on chronic combined systolic (congestive) and diastolic (congestive) heart failure; J12.82 Pneumonia due to coronavirus disease 2019; N18.5 Chronic kidney disease, stage 5; I13.2 Hypertensive heart and chronic kidney disease with heart failure and with stage 5 chronic kidney disease, or end stage renal disease; J98.11 Atelectasis; N17.9 Acute kidney failure, unspecified; E87.20 Acidosis, unspecified; E11.42 Type 2 diabetes mellitus with diabetic polyneuropathy; E78.5 Hyperlipidemia, unspecified; E11.22 Type 2 diabetes mellitus with diabetic chronic kidney disease; F41.9 Anxiety disorder, unspecified; I25.2 Old myocardial infarction; E66.9 Obesity, unspecified; I25.10 Atherosclerotic heart disease of native coronary artery without angina pectoris; E83.51 Hypocalcemia; I25.5 Ischemic cardiomyopathy; E86.0 Dehydration; F32.A Depression, unspecified; D63.1 Anemia in chronic kidney disease; K21.9 Gastro-esophageal reflux disease without esophagitis; Z79.82 Long term (current) use of aspirin; Z79.4 Long term (current) use of insulin; Z79.899 Other long term (current) drug therapy; Z88.2 Allergy status to sulfonamides; Z88.8 Allergy status to other drugs, medicaments and biological substances; Z95.5 Presence of coronary angioplasty implant and graft; Z91.041 Radiographic dye allergy status; Z99.81 Dependence on supplemental oxygen; Z79.02 Long term (current) use of antithrombotics/antiplatelets; Z98.84 Bariatric surgery status; Z86.73 Personal history of transient ischemic attack (TIA), and cerebral infarction without residual deficits; Z68.34 Body mass index [BMI] 34.0-34.9, adult

== ENCOUNTER → 2022-06-24 | Outpatient (REF) | payer MEDICARE ==
[~2022-06-24] MED LIST changes: +CEFU50TA PO; +CLONI1TA PO; +POTA1TAB23 PO; +TORS100T PO
[2022-06-24 18:33] LABS: PERCENT SATURATION 13.9 % (13.2-45.0)
== END ==
LOC: M LAB REF 17:00
PROVIDERS: ATTEND Internal Medicine Nephrology
DX: D50.9 Iron deficiency anemia, unspecified (principal)

== ENCOUNTER 2022-08-03 11:21 | Inpatient (IN) | payer MEDICARE ==
[2022-08-03] VITALS (15 sets, daily range): BP systolic 116–185; BP diastolic 62–91; TEMP 96.9–98.2; O2SAT 93–96
[~2022-08-03] VITALS: Ht 147.3 cm; Wt 76.9 kg
[2022-08-03] MEDS ORDERED: ALBUTEROL SULFATE 2.5MG/0.5ML INH NEB SOLN NEB PRN (12:05)
[2022-08-03] MEDS ORDERED: IPRATROPIUM 0.5MG/ALBUTEROL 2.5MG INH SOL UD 3ML (DUONEB) NEB ONE (12:05)
[2022-08-03 12:11] LABS: BASO % 0.4 % (0.0-1.0); EOS # 0.5 10^3/uL (0.0-0.5); EOS % 4.2 % (0.0-3.0); HEMATOCRIT 26.4 % (36.0-47.0); HEMOGLOBIN 7.7 g/dl (12.0-15.5); LYMPH # 0.5 10^3/uL (1.5-5.0); LYMPH % 4.4 % (24.0-44.0); MEAN CORPUSCULAR HEMOGLOBIN 29.3 pg (27.0-33.0); MEAN CORPUSCULAR HGB CONC 29.2 g/dl (32.0-36.5); MEAN CORPUSCULAR VOLUME 100.4 fl (80.0-96.0); MONO # 0.6 10^3/uL (0.0-0.8); MONO % 5.4 % (2.0-8.0); NEUTROPHILS # 9.6 10^3/uL (1.5-8.5); NEUTROPHILS % 84.5 % (36.0-66.0); PLATELET COUNT, AUTOMATED 217 10^3/uL (150-450); RED BLOOD COUNT 2.63 10^6/uL (4.00-5.40); WHITE BLOOD COUNT 11.4 10^3/uL (4.0-10.0)
[2022-08-03 12:41] LABS: ALBUMIN 3.3 G/DL (3.2-5.2); ALKALINE PHOSPHATASE 64 U/L (46-116); ALT/SGPT 13 U/L (7.0-40); AST/SGOT 9 U/L (<34); BILIRUBIN,DIRECT < 0.1 MG/DL (<0.4); BILIRUBIN,TOTAL 0.4 MG/DL (0.3-1.2); BLOOD UREA NITROGEN 67 MG/DL (9-23); CARBON DIOXIDE LEVEL 20 MMOL/L (20-31); CHLORIDE LEVEL 110 MMOL/L (98-107); CREATININE FOR GFR 4.21 MG/DL (0.55-1.30); GLOMERULAR FILTRATION RATE 11.2 (>45); GLUCOSE, FASTING 165 MG/DL (74-106); POTASSIUM SERUM 4.3 MMOL/L (3.5-5.1); SODIUM LEVEL 139 MMOL/L (136-145); TOTAL PROTEIN 6.3 G/DL (5.7-8.2)
[2022-08-03 12:42] LABS: RSV AMPLIFICATION NEGATIVE (NEGATIVE)
[2022-08-03] MEDS ORDERED: LANTINJ4 SQ (13:03)
[2022-08-03] MEDS ORDERED: FUROSEMIDE 40MG/4ML VIAL IV ONE (13:10)
[2022-08-03 13:27] LABS: IRON (FE) 25 UG/DL (50-170); PERCENT SATURATION 10.2 % (13.2-45.0); TOTAL IRON BINDING CAPACITY 245 UG/DL (250-425)
[2022-08-03 13:29] LABS: FERRITIN 349.3 NG/ML (7.3-270.7)
[2022-08-03 14:21] LABS: PROCALCITONIN 0.31 ng/ml
[2022-08-03] MEDS ORDERED: MED REC IN PROGRESS XX SCH (15:50)
[2022-08-03] MEDS: IPRATROPIUM 0.5MG/ALBUTEROL 2.5MG INH SOL UD 3ML (DUONEB) NEB SCH ×3 (16:02→23:07)
[2022-08-03] MEDS ORDERED: TORS100T PO (17:17)
[2022-08-03] MEDS ORDERED: SUCR1TAB56 PO (17:17)
[2022-08-03] MEDS ORDERED: CYAN-1 PO (17:17)
[2022-08-03] MEDS ORDERED: LANTINJ4 SC (17:17)
[2022-08-03] MEDS ORDERED: HOME MED LIST COMPLETE! XX SCH (17:20)
[2022-08-03] MEDS ORDERED: ACETAMINOPHEN 500 MG TAB PO PRN (17:35)
[2022-08-03] MEDS: FUROSEMIDE 100MG/10ML VIAL IV SCH (18:20)
[2022-08-03] MEDS ORDERED: LEVEMIR (INSULIN DETEMIR) 1 UNITS/0.01ML SC SCH (21:00)
[2022-08-03] MEDS ORDERED: POTASSIUM CHLORIDE 10MEQ SR TABLET PO SCH (21:00)
[2022-08-03] MEDS ORDERED: DULoxetine 30MG CAPSULE (CYMBALTA) PO SCH (21:00)
[2022-08-03] MEDS ORDERED: TICAGRELOR 90 MG TABLET (BRILINTA) PO SCH (21:00)
[2022-08-03] MEDS ORDERED: SUCRALFATE 1 GM TAB PO SCH (21:00)
[2022-08-03] MEDS ORDERED: GABAPENTIN 300 MG CAP PO SCH (21:00)
[2022-08-03] MEDS ORDERED: CARVedilol 12.5 MG TAB PO SCH (21:00)
[2022-08-03] MEDS: HEPARIN SOD (PORCINE) 5000UNITS/ML 1ML VIAL/SYRINGE SQ SCH (22:30)
[2022-08-04] VITALS (8 sets, daily range): BP systolic 129–170; BP diastolic 62–85; TEMP 97.2–97.4; O2SAT 94–100
[2022-08-04] MEDS: IPRATROPIUM 0.5MG/ALBUTEROL 2.5MG INH SOL UD 3ML (DUONEB) NEB SCH ×2 (03:55→07:24)
[2022-08-04 05:42] LABS: HEMATOCRIT 26.9 % (36.0-47.0); HEMOGLOBIN 8.3 g/dl (12.0-15.5); MEAN CORPUSCULAR HEMOGLOBIN 29.5 pg (27.0-33.0); MEAN CORPUSCULAR HGB CONC 30.9 g/dl (32.0-36.5); MEAN CORPUSCULAR VOLUME 95.7 fl (80.0-96.0); PLATELET COUNT, AUTOMATED 220 10^3/uL (150-450); RED BLOOD COUNT 2.81 10^6/uL (4.00-5.40); WHITE BLOOD COUNT 8.9 10^3/uL (4.0-10.0)
[2022-08-04] MEDS: HEPARIN SOD (PORCINE) 5000UNITS/ML 1ML VIAL/SYRINGE SQ SCH (06:06)
[2022-08-04] MEDS: FUROSEMIDE 100MG/10ML VIAL IV SCH (06:06)
[2022-08-04 06:13] LABS: CALCIUM LEVEL 8.4 MG/DL (8.3-10.6); CREATININE FOR GFR 4.46 MG/DL (0.55-1.30); GLOMERULAR FILTRATION RATE 10.5 (>45); MAGNESIUM LEVEL 2.2 MG/DL (1.8-2.4); PHOSPHORUS LEVEL 6.7 MG/DL (2.4-5.1); POTASSIUM SERUM 3.8 MMOL/L (3.5-5.1)
[2022-08-04] MEDS ORDERED: TORS100T PO (08:34)
[2022-08-04] MEDS ORDERED: ADV250INH INH (08:34)
[2022-08-04] MEDS ORDERED: LEVEMIR (INSULIN DETEMIR) 1 UNITS/0.01ML SQ SCH (09:00)
[2022-08-04] MEDS ORDERED: MULTIVITAMINS/MINERALS THERAP 1 TAB PO SCH (09:00)
[2022-08-04] MEDS ORDERED: ASPIRIN 81MG CHEW TABLET PO SCH (09:00)
[2022-08-04] MEDS ORDERED: FERROUS SULFATE 325MG TAB PO SCH (09:00)
== END 2022-08-04 09:11 | disposition left against medical advice (07) | DRG 291 ==
LOC: M ED 11:21 → EDBD 11:21 → M ED INP 13:48 → ENRESERV 15:35 → M PCU 16:19
PROVIDERS: ADMIT Internal Medicine; ATTEND Internal Medicine
PROC: 30233N1 Transfusion of Nonautologous Red Blood Cells into Peripheral Vein, Percutaneous Approach (ICD-10-PCS; principal; 2022-08-03)
DX: I13.0 Hypertensive heart and chronic kidney disease with heart failure and stage 1 through stage 4 chronic kidney disease, or unspecified chronic kidney disease (principal); I50.43 Acute on chronic combined systolic (congestive) and diastolic (congestive) heart failure; J96.21 Acute and chronic respiratory failure with hypoxia; J45.901 Unspecified asthma with (acute) exacerbation; N18.4 Chronic kidney disease, stage 4 (severe); I69.351 Hemiplegia and hemiparesis following cerebral infarction affecting right dominant side; D63.8 Anemia in other chronic diseases classified elsewhere; E11.22 Type 2 diabetes mellitus with diabetic chronic kidney disease; I48.91 Unspecified atrial fibrillation; E11.42 Type 2 diabetes mellitus with diabetic polyneuropathy; F41.9 Anxiety disorder, unspecified; I25.2 Old myocardial infarction; E78.5 Hyperlipidemia, unspecified; M21.371 Foot drop, right foot; E66.9 Obesity, unspecified; Z98.84 Bariatric surgery status; Z99.81 Dependence on supplemental oxygen; I25.10 Atherosclerotic heart disease of native coronary artery without angina pectoris; F39 Unspecified mood [affective] disorder; Z79.82 Long term (current) use of aspirin; Z79.4 Long term (current) use of insulin; Z88.2 Allergy status to sulfonamides; Z88.8 Allergy status to other drugs, medicaments and biological substances; Z91.041 Radiographic dye allergy status; Z68.35 Body mass index [BMI] 35.0-35.9, adult

== ENCOUNTER → 2022-08-18 | Outpatient (REF) | payer MEDICARE ==
[~2022-08-18] MED LIST changes: +ADV250INH INH; +CYAN-1 PO; +LANTINJ4 SC; +LANTINJ4 SQ; +SUCR1TAB56 PO
== END ==
LOC: M LAB REF 17:15
PROVIDERS: ATTEND Internal Medicine Nephrology
DX: D64.9 Anemia, unspecified (principal)

== ENCOUNTER → 2022-08-20 | Outpatient (CLI) | payer MEDICARE ==
[~2022-08-20] VITALS: Ht 147.3 cm; Wt 75.9 kg
[~2022-08-20] MED LIST changes: +FUROSEMIDE 40MG/4ML VIAL IV ONE
[2022-08-20 08:55] VITALS: BP 185/83; O2SAT 99
[2022-08-20 12:45] VITALS: BP 174/94; TEMP 98.3; O2SAT 97
[2022-08-20 13:00] VITALS: BP 152/86; TEMP 98.6; O2SAT 96
[2022-08-20 13:45] VITALS: BP 177/95; TEMP 98.3; O2SAT 96
[2022-08-20 14:45] VITALS: BP 176/86; TEMP 97.5; O2SAT 97
[2022-08-20 15:30] VITALS: BP 164/82; O2SAT 98
== END ==
LOC: M INFU 08:39
PROVIDERS: ATTEND Internal Medicine Nephrology
DX: D64.9 Anemia, unspecified (principal); Z88.2 Allergy status to sulfonamides; Z88.8 Allergy status to other drugs, medicaments and biological substances
CPT/HCPCS: 36430; 96374; J1940; P9016

== ENCOUNTER → 2022-09-18 | Outpatient (REF) | payer MEDICARE ==
[~2022-09-18] MED LIST changes: -FUROSEMIDE 40MG/4ML VIAL IV ONE; -GABA-283 PO; +GABA-284 PO
[2022-09-18 17:57] LABS: PERCENT SATURATION 8.8 % (13.2-45.0)
== END ==
LOC: M LAB REF 16:58
PROVIDERS: ATTEND Internal Medicine Nephrology
DX: D50.9 Iron deficiency anemia, unspecified (principal)

== ENCOUNTER 2022-09-26 01:08 | Emergency (ER) | payer MEDICARE ==
[~2022-09-26] VITALS: Ht 147.3 cm; Wt 72.7 kg
[~2022-09-26 01:08] MED LIST changes: +NITR0.4S14 SL
[2022-09-26] MEDS ORDERED: traMADol 50 MG TAB PO ONE (06:50)
[2022-09-26] MEDS ORDERED: AUGMENTIN 875 MG TAB PO ONE (06:50)
[2022-09-26] MEDS ORDERED: AMOX875T2 PO (07:34)
[2022-09-26] MEDS ORDERED: TRAM50TA2 PO (07:36)
[2022-09-26 07:52] VITALS: BP 179/86; TEMP 97; O2SAT 99
== END 2022-09-26 07:54 | disposition home or self-care (01) ==
LOC: M ED 01:08
DX: K08.89 Other specified disorders of teeth and supporting structures (principal); K03.81 Cracked tooth; I11.9 Hypertensive heart disease without heart failure; I25.10 Atherosclerotic heart disease of native coronary artery without angina pectoris; I50.20 Unspecified systolic (congestive) heart failure; I25.2 Old myocardial infarction; E11.9 Type 2 diabetes mellitus without complications; N18.6 End stage renal disease; Z98.84 Bariatric surgery status; Z88.2 Allergy status to sulfonamides; Z88.8 Allergy status to other drugs, medicaments and biological substances; Z91.041 Radiographic dye allergy status; Z79.82 Long term (current) use of aspirin; Z79.899 Other long term (current) drug therapy; Z79.4 Long term (current) use of insulin

== ENCOUNTER 2022-10-06 07:10 | Day surgery (SDC) | payer MEDICARE ==
[~2022-10-06] VITALS: Ht 147.3 cm; Wt 74.4 kg
[~2022-10-06 07:10] MED LIST changes: +AMOX875T2 PO; +CYCLOPENTOLATE 1% OPHTH SOLN 2ML BTL OS SCH; +FLURBIPROFEN 0.03% OPHTH SOLN 2.5 ML OS SCH; +LR 1,000 ML IV SCH; +PHENYLEPHRINE 2.5% OPHTH SOL 2ML OS SCH; +TETRACAINE 0.5% OPHTH SOLN 4ML OS SCH
[2022-10-06] MEDS ORDERED: LIDOCAINE 1% SDV 5ML VIAL As Ordered ONE (07:25)
[2022-10-06] MEDS ORDERED: TRYPAN BLUE 0.06 % 2.25 ML OPHTH SYR (VISIONBLUE) As Ordered ONE ×2 (07:35→08:56)
[2022-10-06] MEDS ORDERED: CEFUROXIME 1MG/0.1ML INTRACAMERAL INJ As Ordered ONE (09:23)
[2022-10-06] MEDS ORDERED: MIDAZOLAM INJ 2MG/2ML VIAL As Ordered ONE (09:27)
[2022-10-06] MEDS ORDERED: LABETALOL 100MG/20ML VIAL As Ordered ONE ×2 (09:32→09:39)
[2022-10-06] MEDS ORDERED: fentaNYL 100 MCG/2 ML INJECTION As Ordered ONE (09:42)
[2022-10-06 10:06] VITALS: BP 169/77; TEMP 96.6; O2SAT 99
== END 2022-10-06 10:33 | disposition home or self-care (01) ==
LOC: M SDC 07:10
PROVIDERS: ATTEND Ophthalmology
DX: H25.12 Age-related nuclear cataract, left eye (principal); I48.91 Unspecified atrial fibrillation; I25.2 Old myocardial infarction; I25.10 Atherosclerotic heart disease of native coronary artery without angina pectoris; I11.9 Hypertensive heart disease without heart failure; Z95.5 Presence of coronary angioplasty implant and graft; E11.9 Type 2 diabetes mellitus without complications; D64.9 Anemia, unspecified; M54.9 Dorsalgia, unspecified; R21 Rash and other nonspecific skin eruption; F41.9 Anxiety disorder, unspecified; F32.A Depression, unspecified; G43.909 Migraine, unspecified, not intractable, without status migrainosus; Z86.73 Personal history of transient ischemic attack (TIA), and cerebral infarction without residual deficits; Z98.84 Bariatric surgery status; Z88.8 Allergy status to other drugs, medicaments and biological substances; Z91.041 Radiographic dye allergy status; Z88.2 Allergy status to sulfonamides; Z79.51 Long term (current) use of inhaled steroids; Z79.82 Long term (current) use of aspirin; Z79.899 Other long term (current) drug therapy; N18.30 Chronic kidney disease, stage 3 unspecified
CPT/HCPCS: 66984; J0697; J1920; J2250; J3010; V2632

== ENCOUNTER 2022-11-23 08:13 | Inpatient (IN) | payer MEDICARE ==
[~2022-11-23] VITALS: Ht 147.3 cm; Wt 71.0 kg
[~2022-11-23 08:13] MED LIST changes: -CYCLOPENTOLATE 1% OPHTH SOLN 2ML BTL OS SCH; -FLURBIPROFEN 0.03% OPHTH SOLN 2.5 ML OS SCH; -LR 1,000 ML IV SCH; -PHENYLEPHRINE 2.5% OPHTH SOL 2ML OS SCH; -TETRACAINE 0.5% OPHTH SOLN 4ML OS SCH
[2022-11-23] MEDS ORDERED: CARVedilol 12.5 MG TAB PO ONE (08:55)
[2022-11-23] MEDS: **hydrALAZINE HCL** 25 MG TAB PO ONE ×2 (08:55→09:20)
[2022-11-23] MEDS ORDERED: TORSEMIDE 100 MG TAB PO ONE (08:55)
[2022-11-23] MEDS ORDERED: TICAGRELOR 90 MG TABLET (BRILINTA) PO ONE (08:55)
[2022-11-23 08:56] LABS: ABG BASE EXCESS -9.1 (-2.0-2.0); ABG HCO3 16.5 MMOL/L (22.0-26.0); ABG O2 SATURATION 96.5 % (95.0-99.0); ABG PARTIAL PRESSURE CO2 34.2 mmHg (35.0-45.0); ABG PARTIAL PRESSURE O2 96.6 mmHg (75.0-100.0); ABG TOTAL CO2 17.5 MMOL/L (23.0-31.0); ABG pH (ARTERIAL) 7.301 UNITS (7.350-7.450)
[2022-11-23] MEDS ORDERED: FERROUS SULFATE 325MG TAB PO SCH (09:00)
[2022-11-23] MEDS ORDERED: metOLazone 5 MG TAB PO SCH (09:00)
[2022-11-23 09:06] LABS: BASO % 0.3 % (0.0-1.0); EOS # 0.4 10^3/uL (0.0-0.5); EOS % 3.5 % (0.0-3.0); HEMATOCRIT 27.6 % (36.0-47.0); HEMOGLOBIN 8.4 g/dl (12.0-15.5); LYMPH % 8.7 % (24.0-44.0); MEAN CORPUSCULAR HEMOGLOBIN 29.3 pg (27.0-33.0); MEAN CORPUSCULAR HGB CONC 30.4 g/dl (32.0-36.5); MEAN CORPUSCULAR VOLUME 96.2 fl (80.0-96.0); MONO # 0.7 10^3/uL (0.0-0.8); MONO % 6.3 % (2.0-8.0); NEUTROPHILS # 8.9 10^3/uL (1.5-8.5); NEUTROPHILS % 80.1 % (36.0-66.0); PLATELET COUNT, AUTOMATED 239 10^3/uL (150-450); RED BLOOD COUNT 2.87 10^6/uL (4.00-5.40); WHITE BLOOD COUNT 11.1 10^3/uL (4.0-10.0)
[2022-11-23 09:35] LABS: CK-MB VALUE MASS 4.5 NG/ML (<3.6)
[2022-11-23 09:36] LABS: MB/CK RELATIVE INDEX 9.37 (< OR =4)
[2022-11-23 09:37] LABS: BILIRUBIN,DIRECT 0.1 MG/DL (<0.4); BILIRUBIN,TOTAL 0.4 MG/DL (0.3-1.2); CALCIUM LEVEL 8.6 MG/DL (8.3-10.6); CREATININE FOR GFR 4.17 MG/DL (0.55-1.30); GLOMERULAR FILTRATION RATE 11.3 (>45); POTASSIUM SERUM 3.8 MMOL/L (3.5-5.1); TOTAL PROTEIN 6.3 G/DL (5.7-8.2)
[2022-11-23] MEDS ORDERED: FUROSEMIDE 40MG/4ML VIAL IV ONE (09:45)
[2022-11-23] MEDS ORDERED: MED REC IN PROGRESS XX SCH (10:40)
[2022-11-23] MEDS ORDERED: BUMETANIDE 1MG/4ML VIAL IV SCH (10:55)
[2022-11-23] MEDS ORDERED: TORS100T PO (11:03)
[2022-11-23] MEDS ORDERED: SUCR1TAB56 PO (11:03)
[2022-11-23] MEDS ORDERED: TRAM50TA2 PO (11:03)
[2022-11-23] MEDS ORDERED: MAALOX 30 ML SUSP *UDC PO PRN (11:05)
[2022-11-23] MEDS ORDERED: ACETAMINOPHEN TAB 650MG DOSE (2X325MG) PO PRN (11:05)
[2022-11-23] MEDS ORDERED: MOM 30ML SUSPENSION UDC PO PRN (11:05)
[2022-11-23] MEDS ORDERED: HOME MED LIST COMPLETE! XX SCH (11:10)
[2022-11-23 11:32] LABS: MAGNESIUM LEVEL 2.4 MG/DL (1.8-2.4)
[2022-11-23] MEDS ORDERED: GLUCOSE 4GM CHEW TABLET PO PRN (12:15)
[2022-11-23] MEDS ORDERED: GLUCAGON INJ 1MG VIAL SC PRN (12:15)
[2022-11-23] MEDS ORDERED: DEXTROSE 50% 50ML SYRINGE IV PRN (12:15)
[2022-11-23 12:30] VITALS: BP 175/81; TEMP 96.7; O2SAT 98
[2022-11-23] MEDS: INSULIN LISPRO (NovoLOG) PER UNIT SC SCH ×3 (13:55→20:44)
[2022-11-23] MEDS: FUROSEMIDE 40MG/4ML VIAL IV SCH ×2 (13:56→21:59)
[2022-11-23] MEDS: DULoxetine 30MG CAPSULE (CYMBALTA) PO SCH ×2 (13:57→20:42)
[2022-11-23] MEDS: GABAPENTIN 300 MG CAP PO SCH ×2 (13:58→20:42)
[2022-11-23] MEDS: ASPIRIN 81MG CHEW TABLET PO SCH (13:58)
[2022-11-23] MEDS: MULTIVITAMINS/MINERALS THERAP 1 TAB PO SCH (13:58)
[2022-11-23] MEDS: SUCRALFATE 1 GM TAB PO SCH ×2 (13:59→20:42)
[2022-11-23] MEDS ORDERED: POTASSIUM CHLORIDE 10MEQ SR TABLET PO ONE (14:00)
[2022-11-23] MEDS ORDERED: metOLazone 5 MG TAB PO ONE (14:00)
[2022-11-23 16:00] VITALS: BP 168/82; TEMP 98.6; O2SAT 96
[2022-11-23 20:04] VITALS: BP 160/104; TEMP 97.5; O2SAT 97
[2022-11-23] MEDS: CARVedilol 12.5 MG TAB PO SCH (20:41)
[2022-11-23] MEDS: **hydrALAZINE HCL** 25 MG TAB PO SCH (20:41)
[2022-11-23] MEDS ORDERED: TICAGRELOR 90 MG TABLET (BRILINTA) PO SCH (21:00)
[2022-11-23] MEDS ORDERED: LEVEMIR (INSULIN DETEMIR) 1 UNITS/0.01ML SC SCH (21:00)
[2022-11-23] MEDS ORDERED: HEPARIN SOD (PORCINE) 5000UNITS/ML 1ML VIAL/SYRINGE SC SCH (21:00)
[2022-11-23 21:12] LABS: HEMATOCRIT 26.3 % (36.0-47.0); HEMOGLOBIN 8.2 g/dl (12.0-15.5)
[2022-11-23 23:55] VITALS: BP 148/70; TEMP 97.5; O2SAT 98
[2022-11-24 03:10] VITALS: BP 168/91; TEMP 97; O2SAT 97
[2022-11-24] MEDS: FUROSEMIDE 40MG/4ML VIAL IV SCH (05:22)
[2022-11-24 06:26] LABS: BASO % 0.2 % (0.0-1.0); HEMATOCRIT 25.5 % (36.0-47.0); HEMOGLOBIN 8.1 g/dl (12.0-15.5); LYMPH # 0.7 10^3/uL (1.5-5.0); LYMPH % 5.5 % (24.0-44.0); MEAN CORPUSCULAR HEMOGLOBIN 29.3 pg (27.0-33.0); MEAN CORPUSCULAR HGB CONC 31.8 g/dl (32.0-36.5); MEAN CORPUSCULAR VOLUME 92.4 fl (80.0-96.0); MONO # 0.7 10^3/uL (0.0-0.8); MONO % 5.2 % (2.0-8.0); NEUTROPHILS # 11.2 10^3/uL (1.5-8.5); NEUTROPHILS % 88.4 % (36.0-66.0); PLATELET COUNT, AUTOMATED 255 10^3/uL (150-450); RED BLOOD COUNT 2.76 10^6/uL (4.00-5.40); WHITE BLOOD COUNT 12.7 10^3/uL (4.0-10.0)
[2022-11-24 06:56] LABS: CALCIUM LEVEL 8.9 MG/DL (8.3-10.6); CREATININE FOR GFR 4.44 MG/DL (0.55-1.30); GLOMERULAR FILTRATION RATE 10.5 (>45); MAGNESIUM LEVEL 2.4 MG/DL (1.8-2.4); PERCENT SATURATION 27.1 % (13.2-45.0)
[2022-11-24 06:59] LABS: FERRITIN 295.3 NG/ML (7.3-270.7)
[2022-11-24] MEDS: INSULIN LISPRO (NovoLOG) PER UNIT SC SCH ×4 (08:11→20:42)
[2022-11-24] MEDS: LEVEMIR (INSULIN DETEMIR) 1 UNITS/0.01ML SQ SCH (08:12)
[2022-11-24 08:46] VITALS: BP 142/70; TEMP 96.6; O2SAT 99
[2022-11-24] MEDS: ADVAIR HFA 115/21MCG INHALER INH SCH ×2 (08:53→20:49)
[2022-11-24] MEDS ORDERED: LEVEMIR (INSULIN DETEMIR) 1 UNITS/0.01ML SQ SCH (09:00)
[2022-11-24] MEDS ORDERED: metOLazone 5 MG TAB PO SCH (09:00)
[2022-11-24] MEDS: ASPIRIN 81MG CHEW TABLET PO SCH (09:38)
[2022-11-24] MEDS: CEFDINIR 300 MG CAP (OMNICEF) PO SCH (09:38)
[2022-11-24] MEDS: DULoxetine 30MG CAPSULE (CYMBALTA) PO SCH ×2 (09:38→20:54)
[2022-11-24] MEDS: SUCRALFATE 1 GM TAB PO SCH ×2 (09:39→20:54)
[2022-11-24] MEDS: MULTIVITAMINS/MINERALS THERAP 1 TAB PO SCH (09:39)
[2022-11-24] MEDS: GABAPENTIN 300 MG CAP PO SCH ×2 (09:39→20:54)
[2022-11-24] MEDS: **hydrALAZINE HCL** 25 MG TAB PO SCH ×2 (09:40→20:54)
[2022-11-24] MEDS: CARVedilol 12.5 MG TAB PO SCH ×2 (09:41→20:53)
[2022-11-24] MEDS ORDERED: FERRIC CARBOXYMALTOSE INJ 750 MG, VIAL MATE ADAPTER 1 EACH in NS 250 ML IV ONE (12:00)
[2022-11-24 12:17] VITALS: BP 154/74; TEMP 96.9; O2SAT 95
[2022-11-24] MEDS ORDERED: FUROSEMIDE 100MG/10ML VIAL IV ONE (14:00)
[2022-11-24 16:25] VITALS: BP 157/71; TEMP 96.6; O2SAT 99
[2022-11-24 19:46] VITALS: BP 162/76; TEMP 97.2; O2SAT 100
[2022-11-24] MEDS ORDERED: LEVEMIR (INSULIN DETEMIR) 1 UNITS/0.01ML SC SCH (21:00)
[2022-11-24 23:30] VITALS: BP 150/78; TEMP 98; O2SAT 98
[2022-11-25 04:00] VITALS: BP 142/78; TEMP 97.4; O2SAT 99
[2022-11-25 05:51] LABS: BASO % 0.2 % (0.0-1.0); EOS # 0.1 10^3/uL (0.0-0.5); EOS % 0.7 % (0.0-3.0); HEMATOCRIT 25.6 % (36.0-47.0); HEMOGLOBIN 8.1 g/dl (12.0-15.5); LYMPH # 1.8 10^3/uL (1.5-5.0); LYMPH % 14.5 % (24.0-44.0); MEAN CORPUSCULAR HEMOGLOBIN 29.5 pg (27.0-33.0); MEAN CORPUSCULAR HGB CONC 31.6 g/dl (32.0-36.5); MEAN CORPUSCULAR VOLUME 93.1 fl (80.0-96.0); MONO % 7.8 % (2.0-8.0); NEUTROPHILS # 9.3 10^3/uL (1.5-8.5); NEUTROPHILS % 76.1 % (36.0-66.0); PLATELET COUNT, AUTOMATED 268 10^3/uL (150-450); RED BLOOD COUNT 2.75 10^6/uL (4.00-5.40); WHITE BLOOD COUNT 12.2 10^3/uL (4.0-10.0)
[2022-11-25 06:12] LABS: CALCIUM LEVEL 8.5 MG/DL (8.3-10.6); CREATININE FOR GFR 4.73 MG/DL (0.55-1.30); GLOMERULAR FILTRATION RATE 9.8 (>45); MAGNESIUM LEVEL 2.5 MG/DL (1.8-2.4); POTASSIUM SERUM 3.5 MMOL/L (3.5-5.1)
[2022-11-25] MEDS: ADVAIR HFA 115/21MCG INHALER INH SCH (07:08)
[2022-11-25] MEDS: INSULIN LISPRO (NovoLOG) PER UNIT SC SCH (07:30)
[2022-11-25 07:42] VITALS: BP 152/78; TEMP 96.3; O2SAT 97
[2022-11-25] MEDS ORDERED: DARBEPOETIN 100MCG/0.5ML *NON-DIALYSIS* SYRINGE SC SCH (09:00)
[2022-11-25] MEDS ORDERED: TORSEMIDE 100 MG TAB PO SCH (09:00)
[2022-11-25] MEDS ORDERED: CEPH500C PO (09:07)
[2022-11-25] MEDS: DULoxetine 30MG CAPSULE (CYMBALTA) PO SCH (10:44)
[2022-11-25] MEDS: ASPIRIN 81MG CHEW TABLET PO SCH (10:44)
[2022-11-25] MEDS: GABAPENTIN 300 MG CAP PO SCH (10:44)
[2022-11-25] MEDS: LEVEMIR (INSULIN DETEMIR) 1 UNITS/0.01ML SQ SCH (10:44)
[2022-11-25] MEDS: MULTIVITAMINS/MINERALS THERAP 1 TAB PO SCH (10:45)
[2022-11-25] MEDS: CEFDINIR 300 MG CAP (OMNICEF) PO SCH (10:45)
[2022-11-25 10:46] VITALS: BP 152/78
[2022-11-25] MEDS: CARVedilol 12.5 MG TAB PO SCH (10:46)
[2022-11-25] MEDS: **hydrALAZINE HCL** 25 MG TAB PO SCH (10:46)
[2022-11-25] MEDS: SUCRALFATE 1 GM TAB PO SCH (10:46)
[2022-11-26] MEDS ORDERED: LEVO1TAB38 PO (19:11)
== END 2022-11-25 11:06 | disposition home or self-care (01) | DRG 291 ==
LOC: EDBD 08:13 → M ED 08:13 → EEVIPCON 11:04 → M ED INP 11:04 → ENRESERV 11:19 → M PCU 12:15
PROVIDERS: ADMIT Student in an Organized Health Care Education/Training Program; ATTEND Student in an Organized Health Care Education/Training Program
DX: I13.2 Hypertensive heart and chronic kidney disease with heart failure and with stage 5 chronic kidney disease, or end stage renal disease (principal); I50.43 Acute on chronic combined systolic (congestive) and diastolic (congestive) heart failure; N18.5 Chronic kidney disease, stage 5; J96.11 Chronic respiratory failure with hypoxia; N39.0 Urinary tract infection, site not specified; E87.21 Acute metabolic acidosis; Z99.81 Dependence on supplemental oxygen; D63.1 Anemia in chronic kidney disease; D50.9 Iron deficiency anemia, unspecified; I69.341 Monoplegia of lower limb following cerebral infarction affecting right dominant side; M21.371 Foot drop, right foot; I25.2 Old myocardial infarction; E11.22 Type 2 diabetes mellitus with diabetic chronic kidney disease; I48.91 Unspecified atrial fibrillation; E11.42 Type 2 diabetes mellitus with diabetic polyneuropathy; I25.10 Atherosclerotic heart disease of native coronary artery without angina pectoris; F41.9 Anxiety disorder, unspecified; E66.9 Obesity, unspecified; Z98.84 Bariatric surgery status; I16.0 Hypertensive urgency; Z95.5 Presence of coronary angioplasty implant and graft; E78.5 Hyperlipidemia, unspecified; Z79.82 Long term (current) use of aspirin; Z79.4 Long term (current) use of insulin; Z79.2 Long term (current) use of antibiotics; Z79.899 Other long term (current) drug therapy; Z91.041 Radiographic dye allergy status; Z88.2 Allergy status to sulfonamides; Z88.8 Allergy status to other drugs, medicaments and biological substances; Z20.822 Contact with and (suspected) exposure to COVID-19; B96.20 Unspecified Escherichia coli [E. coli] as the cause of diseases classified elsewhere

== ENCOUNTER → 2022-12-15 | Outpatient (REF) | payer MEDICARE ==
[~2022-12-15] MED LIST changes: +CEPH500C PO; +LEVO1TAB38 PO
[2022-12-16 19:05] LABS: HEPATITIS B SURFACE ANTIBODY NEGATIVE (POSITIVE)
[2022-12-16 19:38] LABS: HEPATITIS B CORE ANTIBODY IGM NEGATIVE (NEGATIVE); HEPATITIS C VIRUS ABY INDEX 0.05 INDEX (<0.8)
== END ==
LOC: M LAB REF 16:58
PROVIDERS: ATTEND Internal Medicine Nephrology
DX: N18.6 End stage renal disease (principal)

== ENCOUNTER → 2022-12-24 | Outpatient (CLI) | payer MEDICARE ==
[~2022-12-24] VITALS: Ht 147.3 cm; Wt 69.1 kg
[~2022-12-24] MED LIST changes: +HEPARIN 1,000UNITS/ML 10ML VIAL (FOR RADIOLOGY & DIALYSIS ONLY) As Ordered ONE; +LIDOCAINE 1% MDV 20ML VIAL As Ordered ONE; +LIDOCAINE W/EPINEPHRINE 1% 20ML VIAL As Ordered ONE; +MIDAZOLAM INJ 2MG/2ML VIAL As Ordered ONE; +NS 1,000 ML IV SCH; +ceFAZolin 2 GM/D5W 50 ML IV BAG As Ordered ONE; +ceFAZolin SOD 2 GM in IV 1 EA IV ONE; +fentaNYL 100 MCG/2 ML INJECTION As Ordered ONE; +hydrALAZINE 20MG/ML 1ML VIAL As Ordered ONE
[2022-12-24 08:34] VITALS: TEMP 97.8
[2022-12-24 09:16] LABS: INR 1.09; PROTHROMBIN TIME 13.8 SECONDS (12.5-14.5)
[2022-12-24 10:58] VITALS: BP 179/72; O2SAT 99
== END ==
LOC: M IRPRO 08:03
PROVIDERS: ATTEND Internal Medicine Nephrology
DX: N18.6 End stage renal disease (principal)
CPT/HCPCS: 36571; 85610; 99152; 99153; C1894; J0690; J2250; J3010

== ENCOUNTER 2023-02-03 05:44 | Inpatient (IN) | payer MEDICARE ==
[~2023-02-03] VITALS: Ht 157.5 cm; Wt 67.0 kg
[2023-02-03] VITALS (64 sets, daily range): BP systolic 52–195; BP diastolic 34–103; TEMP 96.9–97.8; O2SAT 93–100
[~2023-02-03 05:44] MED LIST changes: -HEPARIN 1,000UNITS/ML 10ML VIAL (FOR RADIOLOGY & DIALYSIS ONLY) As Ordered ONE; -LIDOCAINE 1% MDV 20ML VIAL As Ordered ONE; -LIDOCAINE W/EPINEPHRINE 1% 20ML VIAL As Ordered ONE; -MIDAZOLAM INJ 2MG/2ML VIAL As Ordered ONE; -NS 1,000 ML IV SCH; -ceFAZolin 2 GM/D5W 50 ML IV BAG As Ordered ONE; -ceFAZolin SOD 2 GM in IV 1 EA IV ONE; -fentaNYL 100 MCG/2 ML INJECTION As Ordered ONE; -hydrALAZINE 20MG/ML 1ML VIAL As Ordered ONE
[2023-02-03] MEDS ORDERED: NALOXONE 2MG/2ML SYRINGE IV STA (05:52)
[2023-02-03 06:23] LABS: ABG BASE EXCESS -4.1 (-2.0-2.0); ABG HCO3 25.7 MMOL/L (22.0-26.0); ABG O2 SATURATION 96.8 % (95.0-99.0); ABG PARTIAL PRESSURE O2 138.4 mmHg (75.0-100.0); ABG TOTAL CO2 27.9 MMOL/L (23.0-31.0)
[2023-02-03 06:26] LABS: ABG pH (ARTERIAL) 7.163 UNITS (7.350-7.450)
[2023-02-03 06:27] LABS: ABG PARTIAL PRESSURE CO2 73.2 mmHg (35.0-45.0)
[2023-02-03 06:29] LABS: BASO # 0.1 10^3/uL (0.0-0.2); BASO % 0.4 % (0.0-1.0); EOS # 0.7 10^3/uL (0.0-0.5); EOS % 4.5 % (0.0-3.0); HEMATOCRIT 37.8 % (36.0-47.0); HEMOGLOBIN 11.6 g/dl (12.0-15.5); LYMPH # 1.1 10^3/uL (1.5-5.0); LYMPH % 6.7 % (24.0-44.0); MEAN CORPUSCULAR HEMOGLOBIN 30.3 pg (27.0-33.0); MEAN CORPUSCULAR HGB CONC 30.7 g/dl (32.0-36.5); MEAN CORPUSCULAR VOLUME 98.7 fl (80.0-96.0); MONO # 1.1 10^3/uL (0.0-0.8); MONO % 6.5 % (2.0-8.0); NEUTROPHILS # 13.4 10^3/uL (1.5-8.5); PLATELET COUNT, AUTOMATED 203 10^3/uL (150-450); RED BLOOD COUNT 3.83 10^6/uL (4.00-5.40); WHITE BLOOD COUNT 16.6 10^3/uL (4.0-10.0)
[2023-02-03] MEDS ORDERED: PROPOFOL 1,000 MG/100 ML VIAL As Ordered ONE (06:42)
[2023-02-03] MEDS ORDERED: propofoL 1,000 MG in IV 1 EA IV SCH (06:45)
[2023-02-03 06:47] LABS: ETHYL ALCOHOL (ETHANOL) 0.004 % (0.000-0.010)
[2023-02-03 06:49] LABS: SALICYLATE LEVEL < 3.0 MG/DL (<30)
[2023-02-03 06:50] LABS: ALBUMIN 3.3 G/DL (3.2-5.2); ALKALINE PHOSPHATASE 69 U/L (46-116); ALT/SGPT 12 U/L (7.0-40); AST/SGOT 19 U/L (<34); BILIRUBIN,DIRECT < 0.1 MG/DL (<0.4); BILIRUBIN,TOTAL 0.4 MG/DL (0.3-1.2); BLOOD UREA NITROGEN 45 MG/DL (9-23); CALCIUM LEVEL 8.7 MG/DL (8.3-10.6); CARBON DIOXIDE LEVEL 27 MMOL/L (20-31); CHLORIDE LEVEL 105 MMOL/L (98-107); CK-MB VALUE MASS 2.6 NG/ML (<3.6); GLOMERULAR FILTRATION RATE 13.9 (>45); GLUCOSE, FASTING 214 MG/DL (74-106); SODIUM LEVEL 141 MMOL/L (136-145); TOTAL PROTEIN 6.3 G/DL (5.7-8.2)
[2023-02-03 06:52] LABS: THYROID STIMULATING HORMONE 5.013 uIU/ML (0.55-4.78)
[2023-02-03] MEDS ORDERED: ETOMIDATE INJ 20MG/10ML VIAL IV STA (06:53)
[2023-02-03] MEDS ORDERED: ROCURONIUM BROMIDE 50MG/5ML VIAL IV SCH (06:55)
[2023-02-03 07:03] LABS: CPK CREATINE PHOSPHOKINASE 71 U/L (34-145); MB/CK RELATIVE INDEX 3.66 (< OR =4)
[2023-02-03] MEDS ORDERED: cefTRIAXone SOD 2 GM in D5W MINI-BAG PLUS 50 ML IV ONE (07:20)
[2023-02-03] MEDS ORDERED: hydrALAZINE 20MG/ML 1ML VIAL IV STA (07:21)
[2023-02-03 07:39] LABS: ABG BASE EXCESS -2.7 (-2.0-2.0); ABG HCO3 24.6 MMOL/L (22.0-26.0); ABG O2 SATURATION 97.6 % (95.0-99.0); ABG PARTIAL PRESSURE CO2 54.5 mmHg (35.0-45.0); ABG PARTIAL PRESSURE O2 141.7 mmHg (75.0-100.0); ABG STANDARD HCO3 22.2 MMOL/L. (22.0-26.0); ABG TOTAL CO2 26.3 MMOL/L (23.0-31.0); ABG pH (ARTERIAL) 7.273 UNITS (7.350-7.450)
[2023-02-03] MEDS ORDERED: LORazepam 2 MG/ML 1ML VIAL IV ONE (08:00)
[2023-02-03] MEDS ORDERED: AZITHROMYCIN INJ 500 MG, VIAL MATE ADAPTER 1 EACH in NS 250 ML IV ONE (08:00)
[2023-02-03 08:40] LABS: MAGNESIUM LEVEL 2.3 MG/DL (1.8-2.4); PHOSPHORUS LEVEL 8.3 MG/DL (2.4-5.1)
[2023-02-03 08:42] LABS: FREE T4 0.93 NG/DL (0.89-1.76)
[2023-02-03] MEDS ORDERED: MED REC CURRENTLY UNOBTAINABLE XX SCH (08:55)
[2023-02-03] MEDS ORDERED: HEPARIN 1,000UNITS/ML 10ML VIAL (FOR RADIOLOGY & DIALYSIS ONLY) XX SCH (10:25)
[2023-02-03] MEDS ORDERED: HEPARIN 1,000UNITS/ML 10ML VIAL (FOR RADIOLOGY & DIALYSIS ONLY) IV PRN (10:25)
[2023-02-03] MEDS ORDERED: SODIUM CHLORIDE 0.9% 1000ML IV PRN (10:25)
[2023-02-03] MEDS: propofoL 1,000 MG in IV 1 EA IV SCH ×2 (10:55→21:08)
[2023-02-03] MEDS: LORazepam 2 MG/ML 1ML VIAL IV PRN ×2 (11:04→17:19)
[2023-02-03] MEDS ORDERED: PHENYLEPHRINE HCL INJ 50 MG in D5W 495 ML IV SCH (13:00)
[2023-02-03] MEDS: NOREPINEPHRINE 4MG IN D5 250ML 4 MG in IV 1 EA IV SCH ×4 (13:26→20:40)
[2023-02-03 16:37] LABS: VENOUS HCO3 26.5 MMOL/L (23.0-27.0); VENOUS O2 SATURATION 69.7 % (60.0-80.0); VENOUS PARTIAL PRESSURE CO2 45.8 mmHg (38.0-50.0); VENOUS PARTIAL PRESSURE O2 35.9 mmHg (30.0-50.0); VENOUS PH 7.381 UNITS (7.330-7.430); VENOUS STANDARD HCO3 24.8 MMOL/L
[2023-02-03] MEDS ORDERED: ADV250INH INH (17:14)
[2023-02-03] MEDS ORDERED: CALC667T4 PO (17:14)
[2023-02-03] MEDS ORDERED: HOME MED LIST COMPLETE! XX SCH (17:20)
[2023-02-03] MEDS: HEPARIN SOD (PORCINE) 5000UNITS/ML 1ML VIAL/SYRINGE SC SCH (21:08)
[2023-02-04] VITALS (20 sets, daily range): BP systolic 100–190; BP diastolic 53–81; TEMP 97–101.8; O2SAT 95–99
[2023-02-04] MEDS ORDERED: ACETAMINOPHEN *IV* 1,000 MG in IV 1 EA IV ONE (02:00)
[2023-02-04] MEDS: NOREPINEPHRINE 4MG IN D5 250ML 4 MG in IV 1 EA IV SCH ×6 (02:29→19:46)
[2023-02-04 05:06] LABS: BASO % 0.3 % (0.0-1.0); EOS # 0.2 10^3/uL (0.0-0.5); EOS % 1.7 % (0.0-3.0); HEMATOCRIT 32.9 % (36.0-47.0); HEMOGLOBIN 10.6 g/dl (12.0-15.5); LYMPH # 1.4 10^3/uL (1.5-5.0); LYMPH % 11.2 % (24.0-44.0); MEAN CORPUSCULAR HEMOGLOBIN 29.7 pg (27.0-33.0); MEAN CORPUSCULAR HGB CONC 32.2 g/dl (32.0-36.5); MEAN CORPUSCULAR VOLUME 92.2 fl (80.0-96.0); MONO # 1.3 10^3/uL (0.0-0.8); MONO % 10.5 % (2.0-8.0); NEUTROPHILS # 9.2 10^3/uL (1.5-8.5); NEUTROPHILS % 75.9 % (36.0-66.0); PLATELET COUNT, AUTOMATED 197 10^3/uL (150-450); RED BLOOD COUNT 3.57 10^6/uL (4.00-5.40); WHITE BLOOD COUNT 12.1 10^3/uL (4.0-10.0)
[2023-02-04 05:26] LABS: CALCIUM LEVEL 8.5 MG/DL (8.3-10.6); CREATININE FOR GFR 2.76 MG/DL (0.55-1.30); GLOMERULAR FILTRATION RATE 18.2 (>45); POTASSIUM SERUM 3.2 MMOL/L (3.5-5.1)
[2023-02-04] MEDS: HEPARIN SOD (PORCINE) 5000UNITS/ML 1ML VIAL/SYRINGE SC SCH ×3 (06:11→22:00)
[2023-02-04] MEDS ORDERED: KCL 10MEQ/100ML SWI (KRUN) 10 MEQ in IV 1 EA IV SCH (07:00)
[2023-02-04] MEDS ORDERED: TORSEMIDE 100 MG TAB PO SCH (09:00)
[2023-02-04] MEDS ORDERED: CARVedilol 12.5 MG TAB PO SCH (09:00)
[2023-02-04] MEDS: CARVedilol 12.5 MG TAB PO SCH ×2 (09:00→20:03)
[2023-02-04] MEDS: **hydrALAZINE HCL** 25 MG TAB PO SCH ×2 (09:00→20:02)
[2023-02-04] MEDS ORDERED: hydrALAZINE 20MG/ML 1ML VIAL IV STA (09:25)
[2023-02-04] MEDS ORDERED: HEPARIN 1,000UNITS/ML 10ML VIAL (FOR RADIOLOGY & DIALYSIS ONLY) XX SCH (11:15)
[2023-02-04] MEDS ORDERED: SODIUM CHLORIDE 0.9% 1000ML IV PRN (11:15)
[2023-02-04] MEDS ORDERED: HEPARIN 1,000UNITS/ML 10ML VIAL (FOR RADIOLOGY & DIALYSIS ONLY) IV PRN (11:15)
[2023-02-04] MEDS ORDERED: LevoFLOXacin 750 MG TABLET PO ONE (14:00)
[2023-02-04] MEDS ORDERED: GLUCAGON INJ 1MG VIAL SC PRN (16:05)
[2023-02-04] MEDS ORDERED: DEXTROSE 50% 50ML SYRINGE IV PRN (16:05)
[2023-02-04] MEDS ORDERED: GLUCOSE 4GM CHEW TABLET PO PRN (16:05)
[2023-02-04] MEDS: INSULIN LISPRO (NovoLOG) PER UNIT SC SCH (18:04)
[2023-02-04] MEDS ORDERED: POTASSIUM CHLORIDE 10MEQ SR TABLET PO ONE (20:05)
[2023-02-04] MEDS ORDERED: ACETAMINOPHEN TAB 650MG DOSE (2X325MG) PO ONE (20:10)
[2023-02-04 20:43] LABS: POTASSIUM SERUM 3.7 MMOL/L (3.5-5.1)
[2023-02-04 20:50] LABS: C REACTIVE PROTEIN QUANTITATIV 18.5 MG/DL (<1.0)
[2023-02-04] MEDS ORDERED: INSULIN LISPRO (NovoLOG) PER UNIT SC SCH (21:00)
[2023-02-04] MEDS ORDERED: TORSEMIDE (DEMADEX) 50 MG PER 1/2 TAB PO SCH (21:00)
[2023-02-04 22:47] LABS: PROCALCITONIN 3.1 ng/ml
[2023-02-05] MEDS: ACETAMINOPHEN TAB 650MG DOSE (2X325MG) PO PRN ×2 (03:08→11:56)
[2023-02-05 04:00] VITALS: BP 120/57; TEMP 97.3; O2SAT 94
[2023-02-05] MEDS ORDERED: HEPARIN 1,000UNITS/ML 10ML VIAL (FOR RADIOLOGY & DIALYSIS ONLY) XX SCH (06:00)
[2023-02-05] MEDS ORDERED: SODIUM CHLORIDE 0.9% 1000ML IV PRN (06:00)
[2023-02-05] MEDS ORDERED: HEPARIN 1,000UNITS/ML 10ML VIAL (FOR RADIOLOGY & DIALYSIS ONLY) IV PRN (06:00)
[2023-02-05 06:44] LABS: BASO % 0.4 % (0.0-1.0); EOS # 0.3 10^3/uL (0.0-0.5); HEMATOCRIT 34.1 % (36.0-47.0); HEMOGLOBIN 10.7 g/dl (12.0-15.5); LYMPH # 1.1 10^3/uL (1.5-5.0); LYMPH % 12.8 % (24.0-44.0); MEAN CORPUSCULAR HEMOGLOBIN 29.6 pg (27.0-33.0); MEAN CORPUSCULAR HGB CONC 31.4 g/dl (32.0-36.5); MEAN CORPUSCULAR VOLUME 94.5 fl (80.0-96.0); MONO # 1.2 10^3/uL (0.0-0.8); MONO % 13.7 % (2.0-8.0); NEUTROPHILS # 5.9 10^3/uL (1.5-8.5); NEUTROPHILS % 69.6 % (36.0-66.0); PLATELET COUNT, AUTOMATED 186 10^3/uL (150-450); RED BLOOD COUNT 3.61 10^6/uL (4.00-5.40); WHITE BLOOD COUNT 8.4 10^3/uL (4.0-10.0)
[2023-02-05] MEDS: HEPARIN SOD (PORCINE) 5000UNITS/ML 1ML VIAL/SYRINGE SC SCH (07:01)
[2023-02-05 07:10] LABS: CALCIUM LEVEL 8.7 MG/DL (8.3-10.6); CREATININE FOR GFR 4.04 MG/DL (0.55-1.30); GLOMERULAR FILTRATION RATE 11.8 (>45); MAGNESIUM LEVEL 2.1 MG/DL (1.8-2.4); POTASSIUM SERUM 3.7 MMOL/L (3.5-5.1)
[2023-02-05] MEDS: INSULIN LISPRO (NovoLOG) PER UNIT SC SCH ×2 (07:43→13:08)
[2023-02-05 08:00] VITALS: BP 138/62; TEMP 97; O2SAT 96
[2023-02-05 11:55] VITALS: BP 140/70
[2023-02-05] MEDS: CARVedilol 12.5 MG TAB PO SCH (11:57)
[2023-02-05 11:58] VITALS: BP 140/70
[2023-02-05] MEDS: **hydrALAZINE HCL** 25 MG TAB PO SCH (11:58)
[2023-02-05 12:00] VITALS: TEMP 97.2; O2SAT 94
[2023-02-05] MEDS ORDERED: LEVO1TAB38 PO (14:36)
[2023-02-05] MEDS ORDERED: LevoFLOXacin 250 MG TABLET PO SCH (16:00)
[2023-02-12 15:08] LABS: BODY FLUID CULTURE Not indicated. (.); ORGANISM ID Not indicated. (.); SPECIMEN SOURCE Urine (.); URINE STREP PNEUMONIAE ANTIGEN Negative (Negative)
== END 2023-02-05 14:01 | disposition left against medical advice (07) | DRG 208 ==
LOC: M ED 05:44 → EDBD 05:44 → M ED INP 07:59 → ENRESERV 09:54 → M ICU 10:55 → M PCU 02-04 20:50
PROVIDERS: ADMIT Internal Medicine Pulmonary Disease; ATTEND Internal Medicine Pulmonary Disease
PROC: 5A1945Z Respiratory Ventilation, 24-96 Consecutive Hours (ICD-10-PCS; principal; 2023-02-03)
PROC: 0BH17EZ Insertion of Endotracheal Airway into Trachea, Via Natural or Artificial Opening (ICD-10-PCS; 2023-02-03)
PROC: 5A1D70Z Performance of Urinary Filtration, Intermittent, Less than 6 Hours Per Day (ICD-10-PCS; 2023-02-04)
DX: J96.02 Acute respiratory failure with hypercapnia (principal); J18.1 Lobar pneumonia, unspecified organism; N18.6 End stage renal disease; G93.41 Metabolic encephalopathy; I50.43 Acute on chronic combined systolic (congestive) and diastolic (congestive) heart failure; I69.351 Hemiplegia and hemiparesis following cerebral infarction affecting right dominant side; I13.2 Hypertensive heart and chronic kidney disease with heart failure and with stage 5 chronic kidney disease, or end stage renal disease; E87.29 Other acidosis; N39.0 Urinary tract infection, site not specified; J96.11 Chronic respiratory failure with hypoxia; D63.8 Anemia in other chronic diseases classified elsewhere; D50.9 Iron deficiency anemia, unspecified; I25.2 Old myocardial infarction; I25.10 Atherosclerotic heart disease of native coronary artery without angina pectoris; E11.22 Type 2 diabetes mellitus with diabetic chronic kidney disease; E11.42 Type 2 diabetes mellitus with diabetic polyneuropathy; F41.9 Anxiety disorder, unspecified; M21.371 Foot drop, right foot; Z98.84 Bariatric surgery status; F39 Unspecified mood [affective] disorder; E03.9 Hypothyroidism, unspecified; Z99.2 Dependence on renal dialysis; Z79.82 Long term (current) use of aspirin; Z79.4 Long term (current) use of insulin; Z79.899 Other long term (current) drug therapy; Z88.2 Allergy status to sulfonamides; Z88.8 Allergy status to other drugs, medicaments and biological substances; Z91.041 Radiographic dye allergy status; Z99.81 Dependence on supplemental oxygen

== ENCOUNTER 2023-04-05 18:33 | Emergency (ER) | payer MEDICARE ==
[~2023-04-05] VITALS: Ht 147.3 cm; Wt 76.6 kg
[~2023-04-05 18:33] MED LIST changes: +CALC667T4 PO; -HYDR-3910 PO; +HYDR25TA87 PO
[2023-04-05 19:02] LABS: BASO % 0.3 % (0.0-1.0); EOS # 0.3 10^3/uL (0.0-0.5); EOS % 3.1 % (0.0-3.0); HEMATOCRIT 36.1 % (36.0-47.0); HEMOGLOBIN 11.7 g/dl (12.0-15.5); LYMPH # 0.4 10^3/uL (1.5-5.0); LYMPH % 3.6 % (24.0-44.0); MEAN CORPUSCULAR HEMOGLOBIN 30.6 pg (27.0-33.0); MEAN CORPUSCULAR HGB CONC 32.4 g/dl (32.0-36.5); MEAN CORPUSCULAR VOLUME 94.5 fl (80.0-96.0); MONO # 0.7 10^3/uL (0.0-0.8); MONO % 6.4 % (2.0-8.0); NEUTROPHILS # 8.8 10^3/uL (1.5-8.5); NEUTROPHILS % 85.7 % (36.0-66.0); PLATELET COUNT, AUTOMATED 148 10^3/uL (150-450); RED BLOOD COUNT 3.82 10^6/uL (4.00-5.40); WHITE BLOOD COUNT 10.3 10^3/uL (4.0-10.0)
[2023-04-05 19:37] LABS: RSV AMPLIFICATION NEGATIVE (NEGATIVE)
[2023-04-05] MEDS: LEVALBUTEROL 1.25MG 0.5ML CONCENTRATE NEB NEB ONE (20:22)
[2023-04-05 20:32] LABS: CK-MB VALUE MASS 3.5 NG/ML (<3.6)
[2023-04-05 20:34] LABS: MB/CK RELATIVE INDEX 5.83 (< OR =4)
[2023-04-05 20:38] LABS: ALBUMIN 3.1 G/DL (3.2-5.2); BILIRUBIN,DIRECT 0.1 MG/DL (<0.4); BILIRUBIN,TOTAL 0.4 MG/DL (0.3-1.2); CALCIUM LEVEL 8.1 MG/DL (8.3-10.6); CREATININE FOR GFR 3.82 MG/DL (0.55-1.30); GLOMERULAR FILTRATION RATE 12.5 (>45); POTASSIUM SERUM 4.3 MMOL/L (3.5-5.1); TOTAL PROTEIN 6.4 G/DL (5.7-8.2)
[2023-04-05] MEDS: FUROSEMIDE 100MG/10ML VIAL IV ONE (20:38)
[2023-04-05] MEDS: methylPREDNISolone 125MG 2ML VIAL IV ONE (21:20)
[2023-04-05 21:58] LABS: CK-MB VALUE MASS 3.3 NG/ML (<3.6)
[2023-04-05 21:59] LABS: MB/CK RELATIVE INDEX 4.58 (< OR =4)
[2023-04-05] MEDS ORDERED: PRED20TA PO (22:13)
[2023-04-05] MEDS ORDERED: AZIT-12 PO (22:18)
[2023-04-05 22:24] VITALS: BP 184/88; TEMP 99.8; O2SAT 97
== END 2023-04-05 22:31 | disposition home or self-care (01) ==
LOC: EDBD 18:33 → M ED 18:33
DX: J44.1 Chronic obstructive pulmonary disease with (acute) exacerbation (principal); J12.2 Parainfluenza virus pneumonia; R00.0 Tachycardia, unspecified; I10 Essential (primary) hypertension; E11.9 Type 2 diabetes mellitus without complications; I25.119 Atherosclerotic heart disease of native coronary artery with unspecified angina pectoris; I25.2 Old myocardial infarction; Z88.2 Allergy status to sulfonamides; Z88.8 Allergy status to other drugs, medicaments and biological substances; Z91.041 Radiographic dye allergy status; Z79.1 Long term (current) use of non-steroidal anti-inflammatories (NSAID); Z79.899 Other long term (current) drug therapy; Z79.4 Long term (current) use of insulin; Z79.810 Long term (current) use of selective estrogen receptor modulators (SERMs); Z79.52 Long term (current) use of systemic steroids
CPT/HCPCS: 71045; 80048; 80076; 82550; 82553; 83880; 84484; 85025; 87486; 87581; 87631; 87633; 87798; 93005; 93041; 94640; 94760; 96374; 96375; 99285; J1940; J2930

== ENCOUNTER → 2023-04-13 | Outpatient (CLI) | payer MEDICARE ==
[~2023-04-13] MED LIST changes: +ACET-683 PO; +ASPI81CH33 PO; +AZIT-12 PO; +CALC1CAP PO; +MULTTAB61 PO; +PRED20TA PO; +THERTAB52 PO
[2023-04-13 15:44] LABS: BASO % 0.2 % (0.0-1.0); EOS % 0.2 % (0.0-3.0); HEMATOCRIT 28.7 % (36.0-47.0); HEMOGLOBIN 9.2 g/dl (12.0-15.5); LYMPH # 1.4 10^3/uL (1.5-5.0); LYMPH % 10.9 % (24.0-44.0); MEAN CORPUSCULAR HEMOGLOBIN 30.6 pg (27.0-33.0); MEAN CORPUSCULAR HGB CONC 32.1 g/dl (32.0-36.5); MEAN CORPUSCULAR VOLUME 95.3 fl (80.0-96.0); MONO # 0.8 10^3/uL (0.0-0.8); MONO % 6.2 % (2.0-8.0); NEUTROPHILS # 10.5 10^3/uL (1.5-8.5); NEUTROPHILS % 80.1 % (36.0-66.0); PLATELET COUNT, AUTOMATED 222 10^3/uL (150-450); RED BLOOD COUNT 3.01 10^6/uL (4.00-5.40); WHITE BLOOD COUNT 13.1 10^3/uL (4.0-10.0)
[2023-04-13 15:57] LABS: APPEARANCE, URINE CLOUDY (CLEAR); BACTERIA, URINE AUTO 2+ (NEGATIVE); BILIRUBIN, URINE AUTO NEGATIVE (NEGATIVE); BLOOD, URINE BLOOD 1+ (NEGATIVE); COLOR, URINE YELLOW (YELLOW); GLUCOSE, URINE (UA) AUTO 3+ mg/dL (NEGATIVE); KETONE, URINE AUTO NEGATIVE (NEGATIVE); LEUKOCYTE ESTERASE, URINE AUTO 3+ (NEGATIVE); NITRITE, URINE AUTO POSITIVE (NEGATIVE); PROTEIN, URINE AUTO 2+ mg/dL (NEGATIVE); RBC, URINE AUTO 3 /HPF (0-3); SPECIFIC GRAVITY URINE AUTO 1.015 (1.002-1.035); SQUAMOUS EPITHELIAL CELL UR AU 2 /HPF (0-6); UROBILINOGEN, URINE AUTO 0.2 mg/dL (0.0-2.0); WBC, URINE AUTO TNTC /HPF (0-3)
[2023-04-13 16:02] LABS: INR 1.1; PARTIAL THROMBOPLASTIN TIME 26.4 SECONDS (24.8-34.2); PROTHROMBIN TIME 13.9 SECONDS (12.5-14.5)
[2023-04-13 16:04] LABS: ALBUMIN 3.2 G/DL (3.2-5.2); BILIRUBIN,TOTAL 0.3 MG/DL (0.3-1.2); CALCIUM LEVEL 7.9 MG/DL (8.3-10.6); CREATININE FOR GFR 4.07 MG/DL (0.55-1.30); GLOMERULAR FILTRATION RATE 11.7 (>45); POTASSIUM SERUM 4.4 MMOL/L (3.5-5.1); TOTAL PROTEIN 6.1 G/DL (5.7-8.2)
== END ==
LOC: M PLALAB 11:58
PROVIDERS: ATTEND Family Medicine
DX: Z01.818 Encounter for other preprocedural examination (principal); I25.10 Atherosclerotic heart disease of native coronary artery without angina pectoris; I50.20 Unspecified systolic (congestive) heart failure

== ENCOUNTER 2023-04-14 04:04 | Inpatient (IN) | payer MEDICARE ==
[~2023-04-14] VITALS: Ht 147.3 cm; Wt 74.4 kg
[~2023-04-14 04:04] MED LIST changes: -ACET-683 PO; -ASPI81CH33 PO; -CALC1CAP PO; -MULTTAB61 PO
[2023-04-14 04:53] LABS: BASO % 0.2 % (0.0-1.0); EOS # 0.3 10^3/uL (0.0-0.5); EOS % 2.4 % (0.0-3.0); HEMATOCRIT 31.4 % (36.0-47.0); HEMOGLOBIN 10.1 g/dl (12.0-15.5); LYMPH % 15.1 % (24.0-44.0); MEAN CORPUSCULAR HEMOGLOBIN 30.7 pg (27.0-33.0); MEAN CORPUSCULAR HGB CONC 32.2 g/dl (32.0-36.5); MEAN CORPUSCULAR VOLUME 95.4 fl (80.0-96.0); MONO # 0.7 10^3/uL (0.0-0.8); MONO % 5.2 % (2.0-8.0); NEUTROPHILS # 9.6 10^3/uL (1.5-8.5); NEUTROPHILS % 73.8 % (36.0-66.0); PLATELET COUNT, AUTOMATED 215 10^3/uL (150-450); RED BLOOD COUNT 3.29 10^6/uL (4.00-5.40); WHITE BLOOD COUNT 13.1 10^3/uL (4.0-10.0)
[2023-04-14 05:15] LABS: CPK CREATINE PHOSPHOKINASE 51 U/L (34-145)
[2023-04-14 05:19] LABS: ALBUMIN 3.3 G/DL (3.2-5.2); ALKALINE PHOSPHATASE 80 U/L (46-116); ALT/SGPT 27 U/L (7.0-40); AST/SGOT 15 U/L (<34); BILIRUBIN,DIRECT < 0.1 MG/DL (<0.4); BILIRUBIN,TOTAL 0.4 MG/DL (0.3-1.2); BLOOD UREA NITROGEN 69 MG/DL (9-23); CALCIUM LEVEL 7.8 MG/DL (8.3-10.6); CARBON DIOXIDE LEVEL 24 MMOL/L (20-31); CHLORIDE LEVEL 103 MMOL/L (98-107); CK-MB VALUE MASS 6.2 NG/ML (<3.6); CREATININE FOR GFR 4.21 MG/DL (0.55-1.30); GLOMERULAR FILTRATION RATE 11.2 (>45); GLUCOSE, FASTING 364 MG/DL (74-106); MB/CK RELATIVE INDEX 12.15 (< OR =4); POTASSIUM SERUM 3.5 MMOL/L (3.5-5.1); SODIUM LEVEL 136 MMOL/L (136-145); TOTAL PROTEIN 6.4 G/DL (5.7-8.2)
[2023-04-14 07:49] LABS: CK-MB VALUE MASS 6.3 NG/ML (<3.6)
[2023-04-14 07:58] LABS: MB/CK RELATIVE INDEX 10.67 (< OR =4)
[2023-04-14] MEDS: CARVedilol 12.5 MG TAB PO ONE (08:29)
[2023-04-14] MEDS: ASPIRIN 325 MG TAB PO ONE (08:30)
[2023-04-14] MEDS: **hydrALAZINE HCL** 25 MG TAB PO ONE (08:30)
[2023-04-14] MEDS ORDERED: LANTINJ4 SC (09:34)
[2023-04-14] MEDS ORDERED: CALC1CAP PO (09:34)
[2023-04-14] MEDS ORDERED: AZIT-12 PO (09:34)
[2023-04-14] MEDS ORDERED: ACET-683 PO (09:34)
[2023-04-14] MEDS ORDERED: ASPI81CH33 PO (09:34)
[2023-04-14] MEDS ORDERED: ADV250INH INH (09:41)
[2023-04-14] MEDS ORDERED: MULTTAB61 PO (09:41)
[2023-04-14] MEDS ORDERED: NITR0.4S14 SL (09:41)
[2023-04-14] MEDS ORDERED: TORS100T PO ×2 (09:41)
[2023-04-14] MEDS ORDERED: PRED20TA PO (09:41)
[2023-04-14] MEDS ORDERED: CEPH500C PO (09:41)
[2023-04-14] MEDS ORDERED: HOME MED LIST COMPLETE! XX SCH (09:45)
[2023-04-14] MEDS ORDERED: AZITHROMYCIN 250MG TABLET PO SCH (10:05)
[2023-04-14] MEDS ORDERED: NITROGLYCERIN 0.4MG SUBL TABLET SL PRN (10:05)
[2023-04-14] MEDS ORDERED: HEPARIN 1,000UNITS/ML 10ML VIAL (FOR RADIOLOGY & DIALYSIS ONLY) IV PRN (10:10)
[2023-04-14] MEDS ORDERED: HEPARIN 1,000UNITS/ML 10ML VIAL (FOR RADIOLOGY & DIALYSIS ONLY) XX SCH (10:10)
[2023-04-14] MEDS ORDERED: LIDOCAINE 1% SDV 5ML VIAL SC PRN (10:10)
[2023-04-14] MEDS ORDERED: SODIUM CHLORIDE 0.9% 1000ML IV PRN (10:10)
[2023-04-14] MEDS ORDERED: DEXTROSE 50% 50ML SYRINGE IV PRN (11:10)
[2023-04-14] MEDS ORDERED: GLUCOSE 4GM CHEW TABLET PO PRN (11:10)
[2023-04-14] MEDS ORDERED: GLUCAGON INJ 1MG VIAL SC PRN (11:10)
[2023-04-14] MEDS: TICAGRELOR 90 MG TABLET (BRILINTA) PO SCH (11:50)
[2023-04-14] MEDS: LEVEMIR (INSULIN DETEMIR) 1 UNITS/0.01ML SC SCH ×2 (11:50→20:02)
[2023-04-14] MEDS: DULoxetine 30MG CAPSULE (CYMBALTA) PO SCH (11:55)
[2023-04-14] MEDS: INSULIN LISPRO (NovoLOG) PER UNIT SC SCH ×2 (12:53→19:41)
[2023-04-14] MEDS: GABAPENTIN 300 MG CAP PO SCH (12:56)
[2023-04-14] MEDS: CALCIUM ACETATE 667MG GELCAP PO SCH (12:56)
[2023-04-14 15:45] VITALS: BP 186/83; TEMP 97.7; O2SAT 98
[2023-04-14] MEDS: **hydrALAZINE HCL** 25 MG TAB PO SCH (16:00)
[2023-04-14] MEDS: ACETAMINOPHEN 500 MG TAB PO PRN (16:40)
[2023-04-14] MEDS: HEPARIN SOD (PORCINE) 5000UNITS/ML 1ML VIAL/SYRINGE SC SCH (16:45)
[2023-04-14 20:10] VITALS: BP 190/88; TEMP 97.8; O2SAT 97
[2023-04-14] MEDS: CARVedilol 12.5 MG TAB PO SCH (20:14)
[2023-04-14 23:55] VITALS: BP 165/74; TEMP 97.8; O2SAT 96
[2023-04-15 04:24] VITALS: BP 173/77; TEMP 98.2; O2SAT 99
[2023-04-15] MEDS: METOPROLOL 5 MG/5 ML VIAL IV STA (05:21)
[2023-04-15 05:51] LABS: HEMOGLOBIN 9.9 g/dl (12.0-15.5); MEAN CORPUSCULAR HEMOGLOBIN 30.7 pg (27.0-33.0); MEAN CORPUSCULAR VOLUME 93.2 fl (80.0-96.0); PLATELET COUNT, AUTOMATED 201 10^3/uL (150-450); RED BLOOD COUNT 3.22 10^6/uL (4.00-5.40); WHITE BLOOD COUNT 12.1 10^3/uL (4.0-10.0)
[2023-04-15 06:18] LABS: CALCIUM LEVEL 7.7 MG/DL (8.3-10.6); CREATININE FOR GFR 2.16 MG/DL (0.55-1.30); GLOMERULAR FILTRATION RATE 24.2 (>45); MAGNESIUM LEVEL 1.7 MG/DL (1.8-2.4); POTASSIUM SERUM 3.1 MMOL/L (3.5-5.1)
[2023-04-15 07:20] VITALS: BP 141/67; TEMP 97.5; O2SAT 100
[2023-04-15] MEDS: ADVAIR HFA 115/21MCG INHALER INH SCH (08:54)
[2023-04-15] MEDS ORDERED: predniSONE 20 MG TAB PO SCH (09:00)
[2023-04-15] MEDS: ASPIRIN 81MG CHEW TABLET PO SCH (09:24)
[2023-04-15] MEDS ORDERED: HEPARIN 1,000UNITS/ML 10ML VIAL (FOR RADIOLOGY & DIALYSIS ONLY) IV PRN (09:40)
[2023-04-15] MEDS ORDERED: HEPARIN 1,000UNITS/ML 10ML VIAL (FOR RADIOLOGY & DIALYSIS ONLY) XX SCH (09:40)
[2023-04-15] MEDS ORDERED: SODIUM CHLORIDE 0.9% 1000ML IV PRN (09:40)
[2023-04-15 13:56] VITALS: BP 142/70; TEMP 97.6; O2SAT 98
[2023-04-15 18:44] VITALS: BP 146/67; TEMP 98; O2SAT 97
[2023-04-15 19:58] VITALS: BP 179/79; TEMP 97.2; O2SAT 98
[2023-04-15] MEDS: TORSEMIDE (DEMADEX) 50 MG PER 1/2 TAB PO SCH (21:53)
[2023-04-15 23:49] VITALS: BP 131/63; TEMP 97.6; O2SAT 93
[2023-04-16 04:18] VITALS: BP 128/60; TEMP 97.2; O2SAT 98
[2023-04-16 05:51] LABS: HEMATOCRIT 30.1 % (36.0-47.0); HEMOGLOBIN 9.7 g/dl (12.0-15.5); MEAN CORPUSCULAR HEMOGLOBIN 30.4 pg (27.0-33.0); MEAN CORPUSCULAR HGB CONC 32.2 g/dl (32.0-36.5); MEAN CORPUSCULAR VOLUME 94.4 fl (80.0-96.0); PLATELET COUNT, AUTOMATED 202 10^3/uL (150-450); RED BLOOD COUNT 3.19 10^6/uL (4.00-5.40); WHITE BLOOD COUNT 11.4 10^3/uL (4.0-10.0)
[2023-04-16] MEDS: traMADol 50 MG TAB PO PRN (06:25)
[2023-04-16 06:37] LABS: CREATININE FOR GFR 3.55 MG/DL (0.55-1.30); GLOMERULAR FILTRATION RATE 13.6 (>45); MAGNESIUM LEVEL 2.1 MG/DL (1.8-2.4); PHOSPHORUS LEVEL 6.2 MG/DL (2.4-5.1); POTASSIUM SERUM 3.8 MMOL/L (3.5-5.1)
[2023-04-16 07:45] VITALS: BP 154/70; TEMP 97; O2SAT 100
[2023-04-16] MEDS ORDERED: LIDOCAINE 1% SDV 5ML VIAL SC PRN (08:15)
[2023-04-16] MEDS ORDERED: HEPARIN 1,000UNITS/ML 10ML VIAL (FOR RADIOLOGY & DIALYSIS ONLY) IV PRN (08:15)
[2023-04-16] MEDS ORDERED: SODIUM CHLORIDE 0.9% 1000ML IV PRN (08:15)
[2023-04-16] MEDS ORDERED: HEPARIN 1,000UNITS/ML 10ML VIAL (FOR RADIOLOGY & DIALYSIS ONLY) XX SCH (08:15)
[2023-04-16 13:02] VITALS: BP 130/60
[2023-04-16 13:05] VITALS: BP 130/60
[2023-04-16] MEDS: TORSEMIDE 100 MG TAB PO SCH (13:05)
== END 2023-04-16 14:00 | disposition home or self-care (01) | DRG 640 ==
LOC: M ED 04:04 → M ED INP 08:36 → M PCU 15:30
PROVIDERS: ADMIT Internal Medicine; ATTEND Internal Medicine
PROC: B246ZZZ Ultrasonography of Right and Left Heart (ICD-10-PCS; principal; 2023-04-14)
PROC: 5A1D70Z Performance of Urinary Filtration, Intermittent, Less than 6 Hours Per Day (ICD-10-PCS; 2023-04-14)
DX: E87.70 Fluid overload, unspecified (principal); N18.6 End stage renal disease; I13.2 Hypertensive heart and chronic kidney disease with heart failure and with stage 5 chronic kidney disease, or end stage renal disease; I50.32 Chronic diastolic (congestive) heart failure; I16.1 Hypertensive emergency; J81.1 Chronic pulmonary edema; E11.22 Type 2 diabetes mellitus with diabetic chronic kidney disease; R09.02 Hypoxemia; I25.5 Ischemic cardiomyopathy; I48.91 Unspecified atrial fibrillation; M21.371 Foot drop, right foot; E11.42 Type 2 diabetes mellitus with diabetic polyneuropathy; I25.10 Atherosclerotic heart disease of native coronary artery without angina pectoris; F41.9 Anxiety disorder, unspecified; I25.2 Old myocardial infarction; E66.9 Obesity, unspecified; E87.6 Hypokalemia; Z86.73 Personal history of transient ischemic attack (TIA), and cerebral infarction without residual deficits; Z99.2 Dependence on renal dialysis; Z98.84 Bariatric surgery status

== ENCOUNTER → 2023-04-16 | Outpatient (REF) | payer MEDICARE ==
[~2023-04-16] MED LIST changes: +ACET-683 PO; +ASPI81CH33 PO; +CALC1CAP PO; +MULTTAB61 PO
== END ==
LOC: M SFHCPLAZ 11:07
PROVIDERS: ATTEND Family Medicine
DX: Z01.818 Encounter for other preprocedural examination (principal)

== ENCOUNTER 2023-04-24 06:29 | Day surgery (SDC) | payer MEDICARE ==
[~2023-04-24] VITALS: Ht 147.3 cm; Wt 75.7 kg
[~2023-04-24 06:29] MED LIST changes: +LR 1,000 ML IV SCH
[2023-04-24] MEDS ORDERED: ceFAZolin SOD 2 GM in IV 1 EA IV ONE (06:45)
[2023-04-24] MEDS ORDERED: fentaNYL 100 MCG/2 ML INJECTION As Ordered ONE (07:16)
[2023-04-24] MEDS ORDERED: MIDAZOLAM INJ 2MG/2ML VIAL As Ordered ONE (07:16)
[2023-04-24] MEDS ORDERED: LIDOCAINE 2% 100MG/5ML SDV (FOR ANES.) As Ordered ONE (07:16)
[2023-04-24] MEDS ORDERED: propofoL 200 MG/20 ML VIAL As Ordered ONE (07:17)
[2023-04-24] MEDS ORDERED: ROCURONIUM BROMIDE 50MG/5ML VIAL As Ordered ONE (07:18)
[2023-04-24] MEDS ORDERED: ACETAMINOPHEN 1000MG 100ML IV BAG As Ordered ONE (07:18)
[2023-04-24] MEDS ORDERED: SUGAMMADEX SODIUM 500 MG/5 ML VIAL (BRIDION) As Ordered ONE (07:18)
[2023-04-24] MEDS ORDERED: ONDANSETRON 4MG 2ML VIAL As Ordered ONE (07:18)
[2023-04-24] MEDS ORDERED: HEPARIN 1,000UNITS/ML 10ML VIAL (FOR RADIOLOGY & DIALYSIS ONLY) As Ordered ONE (07:19)
[2023-04-24] MEDS ORDERED: HEPARIN SOD (PORCINE) 5000UNITS/ML 1ML VIAL/SYRINGE As Ordered ONE (07:19)
[2023-04-24] MEDS: CelecoXIB 400 MG CAP PO ONE (07:31)
[2023-04-24] MEDS: D5W/0.45% SODIUM CHLORIDE 1,000 ML IV SCH (07:31)
[2023-04-24] MEDS ORDERED: PHENYLephrine 500MCG 5ML (100MCG/ML) SYRINGE As Ordered ONE (08:08)
[2023-04-24] MEDS ORDERED: oxyCODONE 5MG TAB PO PRN (09:05)
[2023-04-24] MEDS ORDERED: fentaNYL 100 MCG/2 ML INJECTION IV PRN (09:05)
[2023-04-24] MEDS ORDERED: LR 1,000 ML IV SCH (09:05)
[2023-04-24] MEDS ORDERED: ONDANSETRON 4MG 2ML VIAL IV PRN (09:05)
[2023-04-24] MEDS ORDERED: HYDROMORPHONE HCL 0.5 MG/ 0.5 ML SYRINGE IV PRN (09:05)
[2023-04-24] MEDS: INSULIN LISPRO (NovoLOG) PER UNIT SC PRN (09:29)
[2023-04-24] MEDS ORDERED: NORCO, ANEXSIA 5/325MG TABLET (HYDROcodone/ACETAMINOPHEN) PO PRN (09:50)
[2023-04-24] MEDS ORDERED: KETOROLAC 30 MG/ML 1ML VIAL IV SCH (10:00)
[2023-04-24 10:30] VITALS: BP 136/62; TEMP 97.1; O2SAT 97
== END 2023-04-24 10:45 | disposition home or self-care (01) ==
LOC: M SDC 06:29
PROVIDERS: ATTEND Surgery
DX: I13.2 Hypertensive heart and chronic kidney disease with heart failure and with stage 5 chronic kidney disease, or end stage renal disease (principal); E10.22 Type 1 diabetes mellitus with diabetic chronic kidney disease; K66.0 Peritoneal adhesions (postprocedural) (postinfection); N18.6 End stage renal disease; Z99.2 Dependence on renal dialysis; I50.32 Chronic diastolic (congestive) heart failure; I48.0 Paroxysmal atrial fibrillation; I25.10 Atherosclerotic heart disease of native coronary artery without angina pectoris; G47.33 Obstructive sleep apnea (adult) (pediatric); E66.01 Morbid (severe) obesity due to excess calories; Z79.82 Long term (current) use of aspirin; Z79.899 Other long term (current) drug therapy; I25.2 Old myocardial infarction; Z95.5 Presence of coronary angioplasty implant and graft; Z98.84 Bariatric surgery status; Z79.4 Long term (current) use of insulin; Z88.2 Allergy status to sulfonamides
CPT/HCPCS: 36415; 49324; 84132; C1750; J0131; J0665; J1100; J1815; J2250; J2371; J2405; J3010

== ENCOUNTER 2023-04-30 05:03 | Inpatient (IN) | payer MEDICARE ==
[~2023-04-30] VITALS: Ht 147.3 cm; Wt 74.0 kg
[~2023-04-30 05:03] MED LIST changes: -LR 1,000 ML IV SCH
[2023-04-30 05:42] LABS: BASO % 0.4 % (0.0-1.0); EOS # 0.5 10^3/uL (0.0-0.5); HEMATOCRIT 32.2 % (36.0-47.0); HEMOGLOBIN 9.8 g/dl (12.0-15.5); LYMPH # 0.6 10^3/uL (1.5-5.0); LYMPH % 7.2 % (24.0-44.0); MEAN CORPUSCULAR HGB CONC 30.4 g/dl (32.0-36.5); MEAN CORPUSCULAR VOLUME 101.9 fl (80.0-96.0); MONO # 0.6 10^3/uL (0.0-0.8); MONO % 6.7 % (2.0-8.0); NEUTROPHILS # 6.6 10^3/uL (1.5-8.5); NEUTROPHILS % 79.2 % (36.0-66.0); PLATELET COUNT, AUTOMATED 167 10^3/uL (150-450); RED BLOOD COUNT 3.16 10^6/uL (4.00-5.40); WHITE BLOOD COUNT 8.4 10^3/uL (4.0-10.0)
[2023-04-30 06:08] LABS: CALCIUM LEVEL 8.3 MG/DL (8.3-10.6); CK-MB VALUE MASS 3.2 NG/ML (<3.6); CREATININE FOR GFR 3.72 MG/DL (0.55-1.30); GLOMERULAR FILTRATION RATE 12.9 (>45); MB/CK RELATIVE INDEX 4.5 (< OR =4)
[2023-04-30] MEDS: FUROSEMIDE 100MG/10ML VIAL IV ONE (06:20)
[2023-04-30 06:55] LABS: CK-MB VALUE MASS 2.3 NG/ML (<3.6)
[2023-04-30 06:56] LABS: MB/CK RELATIVE INDEX 8.51 (< OR =4)
[2023-04-30] MEDS ORDERED: SODIUM CHLORIDE 0.9% 1000ML IV PRN (08:00)
[2023-04-30] MEDS ORDERED: HEPARIN 1,000UNITS/ML 10ML VIAL (FOR RADIOLOGY & DIALYSIS ONLY) XX SCH (08:00)
[2023-04-30] MEDS ORDERED: HEPARIN 1,000UNITS/ML 10ML VIAL (FOR RADIOLOGY & DIALYSIS ONLY) IV PRN (08:00)
[2023-04-30] MEDS ORDERED: ELIQ2.5T PO (08:15)
[2023-04-30] MEDS ORDERED: HOME MED LIST COMPLETE! XX SCH (08:15)
[2023-04-30] MEDS ORDERED: HYDR-3713 PO (08:15)
[2023-04-30] MEDS ORDERED: IPRA0.00 INH (08:15)
[2023-04-30] MEDS: ASPIRIN 81MG CHEW TABLET PO SCH (09:00)
[2023-04-30] MEDS ORDERED: DARBEPOETIN 100MCG/0.5ML *DIALYSIS* SYRINGE IV SCH (11:50)
[2023-04-30 14:37] VITALS: BP 127/69; TEMP 98.1; O2SAT 95
[2023-04-30] MEDS: ACETAMINOPHEN TAB 650MG DOSE (2X325MG) PO PRN (15:52)
[2023-04-30] MEDS ORDERED: GLUCOSE 4GM CHEW TABLET PO PRN (16:10)
[2023-04-30] MEDS ORDERED: ALBUTEROL SULFATE 2.5MG/0.5ML INH NEB SOLN NEB PRN (16:10)
[2023-04-30] MEDS ORDERED: GLUCAGON INJ 1MG VIAL SC PRN (16:10)
[2023-04-30] MEDS ORDERED: DEXTROSE 50% 50ML SYRINGE IV PRN (16:10)
[2023-04-30] MEDS: CALCIUM ACETATE 667MG GELCAP PO SCH (17:13)
[2023-04-30] MEDS: INSULIN LISPRO (NovoLOG) PER UNIT SC SCH ×2 (17:14→20:25)
[2023-04-30] MEDS: ADVAIR HFA 115/21MCG INHALER INH SCH (19:22)
[2023-04-30 19:23] VITALS: O2SAT 95
[2023-04-30 20:14] VITALS: BP 130/67; O2SAT 95
[2023-04-30] MEDS: CARVedilol 12.5 MG TAB PO SCH (20:21)
[2023-04-30] MEDS: DULoxetine 30MG CAPSULE (CYMBALTA) PO SCH (20:21)
[2023-04-30] MEDS: APIXABAN 2.5 MG TAB (ELIQUIS) PO SCH (20:22)
[2023-04-30] MEDS: **hydrALAZINE HCL** 25 MG TAB PO SCH (20:22)
[2023-04-30] MEDS: GABAPENTIN 300 MG CAP PO SCH (20:22)
[2023-04-30] MEDS: LEVEMIR (INSULIN DETEMIR) 1 UNITS/0.01ML SC SCH (20:26)
[2023-04-30] MEDS ORDERED: GABAPENTIN 300 MG CAP PO SCH (21:00)
[2023-05-01 05:58] VITALS: BP 137/67; TEMP 97.5; O2SAT 95
[2023-05-01] MEDS ORDERED: HEPARIN 1,000UNITS/ML 10ML VIAL (FOR RADIOLOGY & DIALYSIS ONLY) XX SCH (06:00)
[2023-05-01] MEDS ORDERED: HEPARIN 1,000UNITS/ML 10ML VIAL (FOR RADIOLOGY & DIALYSIS ONLY) IV PRN (06:00)
[2023-05-01] MEDS ORDERED: SODIUM CHLORIDE 0.9% 1000ML IV PRN (06:00)
[2023-05-01] MEDS: TORSEMIDE 100 MG TAB PO SCH (09:00)
[2023-05-01] MEDS ORDERED: ADVAIR HFA 115/21MCG INHALER INH SCH (09:00)
[2023-05-01] MEDS ORDERED: GABA-282 PO (11:49)
[2023-05-01] MEDS ORDERED: ADV250INH INH (11:49)
[2023-05-01] MEDS ORDERED: TORSEMIDE (DEMADEX) 50 MG PER 1/2 TAB PO SCH (17:00)
== END 2023-05-01 13:12 | disposition home or self-care (01) | DRG 291 ==
LOC: M ED 05:03 → EDBD 05:03 → M ED INP 07:39 → M MSPAV 14:43
PROVIDERS: ADMIT Internal Medicine Nephrology; ATTEND Internal Medicine Nephrology
PROC: 5A1D70Z Performance of Urinary Filtration, Intermittent, Less than 6 Hours Per Day (ICD-10-PCS; principal; 2023-04-30)
DX: I13.2 Hypertensive heart and chronic kidney disease with heart failure and with stage 5 chronic kidney disease, or end stage renal disease (principal); N18.6 End stage renal disease; I50.43 Acute on chronic combined systolic (congestive) and diastolic (congestive) heart failure; J96.21 Acute and chronic respiratory failure with hypoxia; I69.351 Hemiplegia and hemiparesis following cerebral infarction affecting right dominant side; K76.6 Portal hypertension; I25.10 Atherosclerotic heart disease of native coronary artery without angina pectoris; J44.9 Chronic obstructive pulmonary disease, unspecified; M21.371 Foot drop, right foot; Z91.041 Radiographic dye allergy status; I25.5 Ischemic cardiomyopathy; I25.2 Old myocardial infarction; Z95.5 Presence of coronary angioplasty implant and graft; Z98.84 Bariatric surgery status; G47.33 Obstructive sleep apnea (adult) (pediatric); E11.22 Type 2 diabetes mellitus with diabetic chronic kidney disease; E11.42 Type 2 diabetes mellitus with diabetic polyneuropathy; I48.0 Paroxysmal atrial fibrillation; F32.9 Major depressive disorder, single episode, unspecified; E87.5 Hyperkalemia; F41.1 Generalized anxiety disorder; R32 Unspecified urinary incontinence; R06.03 Acute respiratory distress; E53.8 Deficiency of other specified B group vitamins; G89.29 Other chronic pain; Z99.81 Dependence on supplemental oxygen; Z99.2 Dependence on renal dialysis; Z79.01 Long term (current) use of anticoagulants; Z79.4 Long term (current) use of insulin; Z79.899 Other long term (current) drug therapy; Z88.8 Allergy status to other drugs, medicaments and biological substances; Z88.2 Allergy status to sulfonamides; Z91.158 Patient's noncompliance with renal dialysis for other reason; Z91.119 Patient's noncompliance with dietary regimen due to unspecified reason

== ENCOUNTER → 2023-05-07 | Outpatient (REF) | payer MEDICARE ==
[~2023-05-07] MED LIST changes: +ELIQ2.5T PO; +HYDR-3713 PO; +IPRA0.00 INH
[2023-05-07 17:42] LABS: APPEARANCE, URINE HAZY (CLEAR); BACTERIA, URINE AUTO NEGATIVE (NEGATIVE); BILIRUBIN, URINE AUTO NEGATIVE (NEGATIVE); BLOOD, URINE BLOOD NEGATIVE (NEGATIVE); COLOR, URINE YELLOW (YELLOW); GLUCOSE, URINE (UA) AUTO 2+ mg/dL (NEGATIVE); KETONE, URINE AUTO NEGATIVE (NEGATIVE); LEUKOCYTE ESTERASE, URINE AUTO 3+ (NEGATIVE); NITRITE, URINE AUTO NEGATIVE (NEGATIVE); PROTEIN, URINE AUTO 2+ mg/dL (NEGATIVE); RBC, URINE AUTO 0 /HPF (0-3); SPECIFIC GRAVITY URINE AUTO 1.013 (1.002-1.035); SQUAMOUS EPITHELIAL CELL UR AU 7 /HPF (0-6); UROBILINOGEN, URINE AUTO 0.2 mg/dL (0.0-2.0); WBC, URINE AUTO 23 /HPF (0-3)
== END ==
LOC: M LAB REF 16:58
PROVIDERS: ATTEND Internal Medicine Nephrology
DX: N30.01 Acute cystitis with hematuria (principal)

== ENCOUNTER → 2023-10-03 | Outpatient (REF) ==
[2023-10-03 18:13] LABS: SOURCE, BODY FLUID PERITONEAL
[2023-10-03 18:14] LABS: APPEARANCE, BODY FLUID TURBID (CLEAR)
== END ==
LOC: M LAB REF 10:45
PROVIDERS: ATTEND Internal Medicine Nephrology
DX: N18.6 End stage renal disease (principal); R88.0 Cloudy (hemodialysis) (peritoneal) dialysis effluent

== ENCOUNTER 2024-08-27 09:25 | Emergency (ER) | payer MEDICARE ==
[~2024-08-27] VITALS: Ht 147.3 cm; Wt 84.9 kg
[~2024-08-27 09:25] MED LIST changes: -ADV250INH INH; +ADVA1AER9 INH; +AURY1TAB PO; +CARV25TA PO; +FLUC150T9 PO; +GABA-1172 PO; +GABA-1490 PO; -GABA-282 PO; -GABA600T4 PO; +GENT0.1C2 TOP; +LEVO1TAB39 PO; +POTA-298 PO; -PRAV20TA2; +PRAV20TA78; -PRAV40TA2 PO; +PRAV40TA85 PO
[2024-08-27 12:00] VITALS: BP 156/74; O2SAT 99
[2024-08-27 12:28] VITALS: TEMP 97.8
== END 2024-08-27 12:30 | disposition home or self-care (01) ==
LOC: M ED 09:25
DX: S80.01XA Contusion of right knee, initial encounter (principal); R60.0 Localized edema; Y92.9 Unspecified place or not applicable; Y93.9 Activity, unspecified; Y99.9 Unspecified external cause status; I48.91 Unspecified atrial fibrillation; I25.119 Atherosclerotic heart disease of native coronary artery with unspecified angina pectoris; I50.22 Chronic systolic (congestive) heart failure; I11.0 Hypertensive heart disease with heart failure; E78.5 Hyperlipidemia, unspecified; J44.9 Chronic obstructive pulmonary disease, unspecified; Z88.2 Allergy status to sulfonamides; Z88.8 Allergy status to other drugs, medicaments and biological substances; Z79.1 Long term (current) use of non-steroidal anti-inflammatories (NSAID); Z79.51 Long term (current) use of inhaled steroids; Z79.01 Long term (current) use of anticoagulants; Z79.4 Long term (current) use of insulin; Z79.899 Other long term (current) drug therapy

== ENCOUNTER → 2024-09-15 | Outpatient (REF) | payer MEDICARE ==
[~2024-09-15] MED LIST changes: +CALC1CAP31 PO
[2024-09-15 17:50] LABS: BACTERIA, URINE AUTO 3+ (NEGATIVE); RBC, URINE AUTO 6 /HPF (0-3); SQUAMOUS EPITHELIAL CELL UR AU 5 /HPF (0-6); WBC, URINE AUTO TNTC /HPF (0-3)
[2024-09-15 18:02] LABS: APPEARANCE, URINE CLOUDY (CLEAR); BILIRUBIN, URINE AUTO NEGATIVE (NEGATIVE); BLOOD, URINE BLOOD 2+ (NEGATIVE); GLUCOSE, URINE (UA) AUTO 3+ mg/dL (NEGATIVE); GRANULAR CAST, URINE AUTO 22 /LPF; KETONE, URINE AUTO NEGATIVE (NEGATIVE); LEUKOCYTE ESTERASE, URINE AUTO 3+ (NEGATIVE); NITRITE, URINE AUTO NEGATIVE (NEGATIVE); PROTEIN, URINE AUTO 3+ mg/dL (NEGATIVE); SPECIFIC GRAVITY URINE AUTO 1.010 (1.002-1.035); UROBILINOGEN, URINE AUTO 0.2 mg/dL (0.0-2.0)
== END ==
LOC: M LAB REF 16:57
PROVIDERS: ATTEND Internal Medicine Nephrology
DX: R30.0 Dysuria (principal)

== ENCOUNTER 2024-09-28 12:05 | Day surgery (SDC) | payer MEDICARE ==
[~2024-09-28] VITALS: Ht 149.9 cm; Wt 87.3 kg
[2024-09-28] MEDS ORDERED: AURY1TAB PO (12:46)
[2024-09-28] MEDS ORDERED: CISATRACURIUM 2 MG/ML 5 ML VIAL As Ordered ONE (13:02)
[2024-09-28] MEDS ORDERED: LIDOCAINE 2% 100 MG/5 ML SDV (FOR ANES.) As Ordered ONE (13:04)
[2024-09-28] MEDS ORDERED: MIDAZOLAM INJ 2 MG/2 ML VIAL As Ordered ONE (13:04)
[2024-09-28] MEDS ORDERED: ACETAMINOPHEN 1000MG/100ML IV BAG As Ordered ONE (13:04)
[2024-09-28] MEDS ORDERED: dexAMETHasone 4 MG/ML 1 ML VIAL As Ordered ONE (13:04)
[2024-09-28] MEDS ORDERED: ONDANSETRON 4MG 2ML VIAL As Ordered ONE (13:04)
[2024-09-28] MEDS ORDERED: GLYCOPYRROLATE INJ 0.2 MG/ML 2 ML VIAL As Ordered ONE (13:15)
[2024-09-28] MEDS ORDERED: NEOSTIGMINE 10 MG/10 ML VIAL As Ordered ONE (13:15)
[2024-09-28] MEDS: LR 1,000 ML IV SCH (13:31)
[2024-09-28] MEDS: ACETAMINOPHEN 500 MG TAB PO ONE (13:31)
[2024-09-28] MEDS ORDERED: ETOMIDATE 20 MG/10 ML VIAL As Ordered ONE (13:36)
[2024-09-28] MEDS: ceFAZolin SOD 2 GM IV ONCE IV ONE (14:15)
[2024-09-28] MEDS: HEPARIN SOD 5000 UNITS/ML 1 ML VIAL/SYRINGE As Ordered ONE (14:55)
[2024-09-28] MEDS ORDERED: ONDANSETRON 4MG 2ML VIAL IV PRN (15:35)
[2024-09-28] MEDS ORDERED: LR 1,000 ML IV SCH (15:35)
[2024-09-28] MEDS ORDERED: HYDROMORPHONE HCL 0.5 MG/0.5 ML SYRINGE IV PRN (15:35)
[2024-09-28 17:30] VITALS: BP 162/79; TEMP 97.2; O2SAT 98
== END 2024-09-28 17:34 | disposition home or self-care (01) ==
LOC: M SDC 12:05
PROVIDERS: ATTEND Surgery
DX: I12.0 Hypertensive chronic kidney disease with stage 5 chronic kidney disease or end stage renal disease (principal); E11.22 Type 2 diabetes mellitus with diabetic chronic kidney disease; N18.6 End stage renal disease; I25.10 Atherosclerotic heart disease of native coronary artery without angina pectoris; I48.91 Unspecified atrial fibrillation; E11.40 Type 2 diabetes mellitus with diabetic neuropathy, unspecified; Z99.2 Dependence on renal dialysis; I25.2 Old myocardial infarction; Z95.5 Presence of coronary angioplasty implant and graft; Z79.82 Long term (current) use of aspirin; Z79.899 Other long term (current) drug therapy; Z98.84 Bariatric surgery status; Z88.8 Allergy status to other drugs, medicaments and biological substances; Z88.2 Allergy status to sulfonamides
CPT/HCPCS: 36415; 49324; 84132; J0131; J0665; J0690; J1100; J1596; J2250; J2405; J2710; J3010

== ENCOUNTER 2024-10-21 10:31 | Inpatient (IN) | payer MEDICARE ==
[~2024-10-21] VITALS: Ht 149.9 cm; Wt 88.2 kg
[2024-10-21 12:34] LABS: BASO # 0.0 10^3/uL (0.0-0.2); BASO % 0.2 % (0.0-1.0); EOS # 0.0 10^3/uL (0.0-0.5); EOS % 0.0 % (0.0-3.0); LYMPH # 0.4 10^3/uL (1.5-5.0); LYMPH % 6.4 % (24.0-44.0); MONO # 0.9 10^3/uL (0.0-0.8); MONO % 17.1 % (2.0-8.0); NEUTROPHILS # 4.1 10^3/uL (1.5-8.5); NEUTROPHILS % 75.9 % (36.0-66.0); PLATELET COUNT, AUTOMATED 180 10^3/uL (150-450)
[2024-10-21] MEDS: CEFEPIME HCL 2 GM in DEXTROSE 5% (D5W) ADV/MINI-BAG 50 ML IV ONE (12:42)
[2024-10-21 13:18] LABS: CALCIUM LEVEL 7.7 MG/DL (8.3-10.6); CARBON DIOXIDE LEVEL 31.0 MMOL/L (20-31); CHLORIDE LEVEL 97.0 MMOL/L (98-107); CREATININE FOR GFR 4.58 MG/DL (0.55-1.30); GLOMERULAR FILTRATION RATE 9.8 (>45); POTASSIUM SERUM 3.1 MMOL/L (3.5-5.1); SODIUM LEVEL 139.0 MMOL/L (136-145)
[2024-10-21 14:30] LABS: APPEARANCE, BODY FLUID CLOUDY (CLEAR); PERITONEAL FL COLOR PALE YELLOW (COLORLESS); SOURCE, BODY FLUID PERITONEAL
[2024-10-21] MEDS ORDERED: GLUCOSE 4 GM CHEW PO PRN ×2 (15:15→16:45)
[2024-10-21] MEDS ORDERED: MOM 30 ML SUSPENSION UDC PO PRN (15:15)
[2024-10-21] MEDS ORDERED: MAALOX 30 ML SUSP *UDC PO PRN (15:15)
[2024-10-21] MEDS ORDERED: DEXTROSE 50% 50 ML SYRINGE IV PRN ×2 (15:15→16:45)
[2024-10-21] MEDS ORDERED: GLUCAGON INJ 1 MG VIAL SC PRN ×2 (15:15→16:45)
[2024-10-21] MEDS ORDERED: HEPARIN SOD 5000 UNITS/ML 1 ML VIAL/SYRINGE SC SCH (15:15)
[2024-10-21] MEDS: VANCOMYCIN HCL 1,500 MG, VIAL MATE ADAPTER 1 EACH in NS 500 ML IV ONE (16:47)
[2024-10-21] MEDS: ACETAMINOPHEN 325 MG TAB PO PRN (16:48)
[2024-10-21] MEDS ORDERED: MORPHINE 4 MG/ML 1 ML VIAL IV PRN (16:50)
[2024-10-21] MEDS ORDERED: ASPI81TA26 PO (17:57)
[2024-10-21] MEDS ORDERED: ACET-716 PO (17:57)
[2024-10-21] MEDS ORDERED: INSULIN LISPRO (NovoLOG) PER UNIT SC SCH (18:00)
[2024-10-21] MEDS ORDERED: HOME MED LIST COMPLETE! XX SCH (18:00)
[2024-10-21] MEDS: INSULIN LISPRO (NovoLOG) PER UNIT SC SCH ×2 (18:55→21:00)
[2024-10-21] MEDS: POTASSIUM CHLORIDE 10MEQ SR TABLET PO ONE (19:08)
[2024-10-21] MEDS ORDERED: MEROPENEM 2 GM in SODIUM CHLORIDE 0.9% INJ 100 ML IV SCH (20:00)
[2024-10-21 20:58] VITALS: BP 153/69; TEMP 97.2; O2SAT 99
[2024-10-21] MEDS: LanTUS (INSULIN GLARGINE INJ) 1 UNITS/0.01 ML SC SCH (21:00)
[2024-10-21] MEDS: MEROPENEM 2 GM in SODIUM CHLORIDE 0.9% INJ 100 ML IV SCH (22:04)
[2024-10-22] VITALS (22 sets, daily range): BP systolic 129–166; BP diastolic 65–74; TEMP 97.2–98.2; O2SAT 98–100
[2024-10-22] MEDS: NYSTATIN 100,000 UNITS/GM TOPICAL PWD 15 GM TOP SCH (05:58)
[2024-10-22 06:23] LABS: BASO # 0.0 10^3/uL (0.0-0.2); BASO % 0.2 % (0.0-1.0); EOS # 0.1 10^3/uL (0.0-0.5); EOS % 1.5 % (0.0-3.0); LYMPH # 0.4 10^3/uL (1.5-5.0); LYMPH % 7.7 % (24.0-44.0); MONO # 0.4 10^3/uL (0.0-0.8); MONO % 8.1 % (2.0-8.0); NEUTROPHILS # 4.0 10^3/uL (1.5-8.5); NEUTROPHILS % 82.3 % (36.0-66.0); PLATELET COUNT, AUTOMATED 183 10^3/uL (150-450)
[2024-10-22 06:42] LABS: VANCOMYCIN RANDOM 18.9 UG/ML
[2024-10-22 06:43] LABS: CALCIUM LEVEL 7.8 MG/DL (8.3-10.6); CARBON DIOXIDE LEVEL 28.0 MMOL/L (20-31); CHLORIDE LEVEL 100.0 MMOL/L (98-107); CREATININE FOR GFR 4.81 MG/DL (0.55-1.30); GLOMERULAR FILTRATION RATE 9.3 (>45); MAGNESIUM LEVEL 1.5 MG/DL (1.8-2.4); POTASSIUM SERUM 3.1 MMOL/L (3.5-5.1); SODIUM LEVEL 140.0 MMOL/L (136-145)
[2024-10-22] MEDS ORDERED: ADVAIR HFA 115/21 MCG INHALER INH PRN (07:20)
[2024-10-22] MEDS ORDERED: IPRATROPIUM 0.5 MG/ALBUTEROL 2.5 MG INH SOL UD 3 ML INH PRN (07:20)
[2024-10-22] MEDS ORDERED: GLUCOSE 4 GM CHEW PO PRN (07:25)
[2024-10-22] MEDS ORDERED: DEXTROSE 50% 50 ML SYRINGE IV PRN (07:25)
[2024-10-22] MEDS ORDERED: GLUCAGON INJ 1 MG VIAL SC PRN (07:25)
[2024-10-22] MEDS: MAG SULF 1GM/100ML (MAG RUN) 1 GM in IV 1 EA IV SCH (08:22)
[2024-10-22] MEDS: **hydrALAZINE HCL** 25 MG TAB PO SCH (08:23)
[2024-10-22] MEDS: GABAPENTIN 300 MG CAP PO SCH (09:00)
[2024-10-22] MEDS: CALCITRIOL 0.25 MCG CAP (S0169) PO SCH (09:00)
[2024-10-22] MEDS ORDERED: POTASSIUM CHLORIDE 10MEQ SR TABLET PO SCH (09:00)
[2024-10-22] MEDS ORDERED: HEPARIN 1,000 UNITS/ML 10 ML VIAL (FOR RADIOLOGY & DIALYSIS ONLY) IV PRN (10:00)
[2024-10-22] MEDS ORDERED: SODIUM CHLORIDE 0.9% 1000 ML IV PRN (10:00)
[2024-10-22] MEDS ORDERED: HEPARIN 1,000 UNITS/ML 10 ML VIAL (FOR RADIOLOGY & DIALYSIS ONLY) XX SCH (10:00)
[2024-10-22] MEDS ORDERED: KCL 10MEQ/100ML SWI (KRUN) 10 MEQ in IV 1 EA IV SCH (10:00)
[2024-10-22] MEDS: ACETAMINOPHEN *IV* 1,000 MG in IV 1 EA IV ONE ×2 (10:35→18:07)
[2024-10-22] MEDS ORDERED: LIDOCAINE 2% 100 MG/5 ML SDV (FOR ANES.) As Ordered ONE (11:57)
[2024-10-22] MEDS ORDERED: ONDANSETRON 4MG 2ML VIAL As Ordered ONE (11:57)
[2024-10-22] MEDS: LIDOCAINE 1% MDV 20 ML VIAL As Ordered ONE (12:18)
[2024-10-22] MEDS: INSULIN LISPRO (NovoLOG) PER UNIT SC SCH ×3 (13:20→20:25)
[2024-10-22] MEDS: ALTEPLASE 2 MG/2 ML VIAL XX ONE (14:07)
[2024-10-22] MEDS: DARBEPOETIN 100 MCG/0.5 ML *DIALYSIS* SYRINGE IV SCH (14:07)
[2024-10-22] MEDS: VANCOMYCIN HCL 750 MG, VIAL MATE ADAPTER 1 EACH in NS 250 ML IV SCH (17:47)
[2024-10-23] VITALS (24 sets, daily range): BP systolic 134–170; BP diastolic 64–84; TEMP 97.6–98.3; O2SAT 83–99
[2024-10-23 06:44] LABS: CALCIUM LEVEL 7.4 MG/DL (8.3-10.6); CARBON DIOXIDE LEVEL 27.0 MMOL/L (20-31); CHLORIDE LEVEL 101.0 MMOL/L (98-107); CREATININE FOR GFR 3.93 MG/DL (0.55-1.30); GLOMERULAR FILTRATION RATE 11.8 (>45); MAGNESIUM LEVEL 1.8 MG/DL (1.8-2.4); POTASSIUM SERUM 3.4 MMOL/L (3.5-5.1); SODIUM LEVEL 137.0 MMOL/L (136-145); VANCOMYCIN RANDOM 22.7 UG/ML
[2024-10-23] MEDS ORDERED: BISACODYL 10 MG SUPP PR PRN (07:10)
[2024-10-23] MEDS: SENNOSIDES/DOCUSATE SODIUM 8.6 MG/50MG TAB PO SCH (08:14)
[2024-10-23] MEDS ORDERED: VANCOMYCIN HCL 500 MG in DEXTROSE 5% (D5W) MINI-BAG PLU 100 ML IV SCH (12:00)
[2024-10-23] MEDS: CEFEPIME HCL 1 GM in DEXTROSE 5% (D5W) ADV/MINI-BAG 50 ML IV SCH (20:53)
[2024-10-24 00:23] VITALS: BP 166/79; TEMP 97.4; O2SAT 99
[2024-10-24 01:00] VITALS: O2SAT 98
[2024-10-24 02:00] VITALS: O2SAT 97
[2024-10-24 02:48] VITALS: O2SAT 98
[2024-10-24 03:18] VITALS: O2SAT 98
[2024-10-24 03:26] VITALS: O2SAT 98
[2024-10-24] MEDS ORDERED: HEPARIN 1,000 UNITS/ML 10 ML VIAL (FOR RADIOLOGY & DIALYSIS ONLY) IV PRN (06:00)
[2024-10-24] MEDS ORDERED: SODIUM CHLORIDE 0.9% 1000 ML IV PRN (06:00)
[2024-10-24] MEDS ORDERED: HEPARIN 1,000 UNITS/ML 10 ML VIAL (FOR RADIOLOGY & DIALYSIS ONLY) XX SCH (06:00)
[2024-10-24] MEDS ORDERED: MEROPENEM 1 GM in IV 1 EA IV SCH (09:00)
== END 2024-10-24 05:00 | disposition left against medical advice (07) | DRG 907 ==
LOC: M ED 10:31 → M ED INP 15:12 → M PCU 20:49
PROVIDERS: ADMIT Student in an Organized Health Care Education/Training Program; ATTEND Student in an Organized Health Care Education/Training Program
PROC: 5A1D70Z Performance of Urinary Filtration, Intermittent, Less than 6 Hours Per Day (ICD-10-PCS; 2024-10-22)
PROC: 0WPG03Z Removal of Infusion Device from Peritoneal Cavity, Open Approach (ICD-10-PCS; principal; 2024-10-22 10:00)
DX: T85.71XA Infection and inflammatory reaction due to peritoneal dialysis catheter, initial encounter (principal); N18.6 End stage renal disease; K65.2 Spontaneous bacterial peritonitis; I50.42 Chronic combined systolic (congestive) and diastolic (congestive) heart failure; J96.11 Chronic respiratory failure with hypoxia; I69.351 Hemiplegia and hemiparesis following cerebral infarction affecting right dominant side; I13.2 Hypertensive heart and chronic kidney disease with heart failure and with stage 5 chronic kidney disease, or end stage renal disease; J44.9 Chronic obstructive pulmonary disease, unspecified; I25.10 Atherosclerotic heart disease of native coronary artery without angina pectoris; I25.2 Old myocardial infarction; M21.371 Foot drop, right foot; E78.5 Hyperlipidemia, unspecified; E11.22 Type 2 diabetes mellitus with diabetic chronic kidney disease; I48.0 Paroxysmal atrial fibrillation; F32.9 Major depressive disorder, single episode, unspecified; F41.1 Generalized anxiety disorder; E53.8 Deficiency of other specified B group vitamins; R32 Unspecified urinary incontinence; E87.6 Hypokalemia; I25.5 Ischemic cardiomyopathy; G47.33 Obstructive sleep apnea (adult) (pediatric); E11.42 Type 2 diabetes mellitus with diabetic polyneuropathy; Y83.1 Surgical operation with implant of artificial internal device as the cause of abnormal reaction of the patient, or of later complication, without mention of misadventure at the time of the procedure; Z99.2 Dependence on renal dialysis; Z95.5 Presence of coronary angioplasty implant and graft; Z99.81 Dependence on supplemental oxygen; Z98.42 Cataract extraction status, left eye; Z79.82 Long term (current) use of aspirin; Z79.4 Long term (current) use of insulin; Z79.899 Other long term (current) drug therapy; Z88.2 Allergy status to sulfonamides

== ENCOUNTER → 2025-01-03 | Outpatient (CLI) | payer MEDICARE ==
[~2025-01-03] MED LIST changes: +ACET-716 PO; +ASPI81TA26 PO
== END ==
LOC: M LAB 10:11
PROVIDERS: ATTEND Internal Medicine Nephrology
DX: N18.6 End stage renal disease (principal)

== ENCOUNTER 2025-01-04 09:46 | Outpatient (CLI) | payer MEDICARE ==
[~2025-01-04] VITALS: Ht 147.3 cm; Wt 79.5 kg
[2025-01-04] VITALS (7 sets, daily range): BP systolic 124–162; BP diastolic 56–89; TEMP 97.7–98; O2SAT 98–100
[2025-01-04] MEDS ORDERED: ACETAMINOPHEN 650 MG PO ONE (10:30)
[2025-01-04] MEDS ORDERED: NS (Normal Saline) 0.9% 250 ML IV ONE (10:30)
== END 2025-01-04 16:00 | disposition home or self-care (01) ==
LOC: M INFU 09:46
PROVIDERS: ATTEND Internal Medicine Nephrology
DX: N18.6 End stage renal disease (principal); Z88.2 Allergy status to sulfonamides
CPT/HCPCS: 36430; P9016